=== PATIENT | male | born 1955 | race Caucasian/White ===

== ENCOUNTER 2018-07-14 07:00 | Outpatient (CLI) | payer MEDICARE, SELFPAY ==
[2018-07-14 08:34] LABS: Abs Immature Grans 0.03 k/cumm (0.0-0.09); Absolute Basophil Count 0.07 k/cumm (0.0-0.2); Absolute Eosinophil Count 0.33 k/cumm (0.0-0.7); Absolute Monocyte Count 1.19 k/cumm (0.11-0.7); Basophils % 0.6; Eosinophils % 2.8; HCT 46.9 % (40.0-50.0); HGB 15.7 g/dL (13.5-17.5); Immature Grans % 0.3; Lymphocytes % 16.1; Mean Corp. HGB Concentration 33.5 g/dL (32.0-36.0); Mean Corpuscular Volume 89.5 fL (80-95); Mean Platelet Volume 11.6 fL (8.0-11.0); Monocytes % 10.1; Neutrophils % 70.1; Platelet Count 277 x1000/uL (130-400); RBC 5.24 m/cumm (4.50-6.00); RBC Distribution Width 13.3 % (11.8-14.1); White Blood Cell Count 11.81 k/cumm (4.4-10.8)
[2018-07-14 08:39] LABS: Absolute Neutrophil Count 8.28 k/cumm (1.2-6.7)
[2018-07-14 09:17] LABS: Hemoglobin A1C 7.1 % (4.5-6.2)
== END 2018-07-14 07:20 ==
PROVIDERS: PCP Family Medicine; Visit Provider Family Medicine
DX: E11.9 Type 2 diabetes mellitus without complications (principal); D45 Polycythemia vera
CPT/HCPCS: 36415; 83036; 85025

== ENCOUNTER 2018-10-13 08:17 | Outpatient (CLI) | payer MEDICARE, SELFPAY ==
[2018-10-13 11:16] LABS: HCT 48.5 % (40.0-50.0); HGB 15.9 g/dL (13.5-17.5); Mean Corp. HGB Concentration 32.8 g/dL (32.0-36.0); Mean Corpuscular Hemoglobin 29.3 pg (27.0-33.0); Mean Corpuscular Volume 89.5 fL (80-95); Platelet Count 293 x1000/uL (130-400); RBC 5.42 m/cumm (4.50-6.00); RBC Distribution Width 13.3 % (11.8-14.1); White Blood Cell Count 10.69 k/cumm (4.4-10.8)
[2018-10-13 11:38] LABS: Hemoglobin A1C 7.5 % (4.5-6.2)
[2018-10-13 11:40] LABS: ALT 29 U/L (12-78); AST 23 U/L (15-37); Albumin 4.1 g/dL (3.4-5.0); Alkaline Phosphatase 113 U/L (46-116); BUN 16 mg/dL (7-18); Bilirubin, Total 0.6 mg/dL (0.2-1.0); CREATININE 0.83 mg/dL (0.70-1.30); Calcium 9.4 mg/dL (8.5-10.1); Chloride 101 mmol/L (98-107); Glucose 143 mg/dL (70-100); Potassium 4.2 mmol/L (3.5-5.1); Sodium 140 mmol/L (136-145); Total Protein 8.6 g/dL (6.4-8.2)
== END 2018-10-13 08:37 ==
PROVIDERS: PCP Family Medicine; Visit Provider Family Medicine
DX: E11.9 Type 2 diabetes mellitus without complications (principal); Z79.4 Long term (current) use of insulin; K74.60 Unspecified cirrhosis of liver
CPT/HCPCS: 36415; 80053; 85027; 83036

== ENCOUNTER 2019-01-15 07:58 | Outpatient (CLI) | payer MEDICARE, SELFPAY ==
[2019-01-15 13:00] LABS: Hemoglobin A1C 7.7 % (4.5-6.2)
== END 2019-01-15 08:18 ==
PROVIDERS: PCP Family Medicine; Visit Provider Family Medicine
DX: E11.9 Type 2 diabetes mellitus without complications (principal); Z79.4 Long term (current) use of insulin
CPT/HCPCS: 36415; 83036

== ENCOUNTER 2019-04-15 07:31 | Outpatient (CLI) | payer MEDICARE, SELFPAY ==
[2019-04-15 09:41] LABS: Hemoglobin A1C 7.3 % (4.5-6.2)
== END 2019-04-15 07:51 ==
PROVIDERS: PCP Family Medicine; Visit Provider Family Medicine
DX: E11.9 Type 2 diabetes mellitus without complications (principal); Z79.4 Long term (current) use of insulin
CPT/HCPCS: 36415; 83036

== ENCOUNTER 2019-04-28 00:32 | Outpatient (CLI) | payer MEDICARE, SELFPAY ==
--- NOTE | 2019-04-28 09:49 | DI.RAD_ITS ---
SYMPTOM/DIAGNOSIS: DYSPHAGIA WITH SOLID FOODS R13.10 BARIUM SWALLOW: 04/28 Fluoroscopy Time: 11 sec Preliminary films of the chest and neck show cardiomegaly and question borderline CHF. Barium was ingested and showed grossly normal hypopharyngeal motility. Esophageal motility and mucosal appearance is unremarkable. A 12 mm Barium tablet passed easily through the esophagus in to the stomach. CONCLUSION: Negative barium swallow. Chest film shows findings suggestive of mild CHF.
[2019-04-28] MEDS: Barium Sulfate 700 MG TAB PO (11:03)
[2019-04-28] MEDS: Barium Sulfate 60% W/V 355 ML BTL PO (11:05)
== END 2019-04-28 00:52 ==
PROVIDERS: PCP Family Medicine; Visit Provider Family Medicine
DX: R13.10 Dysphagia, unspecified (principal); I50.9 Heart failure, unspecified
CPT/HCPCS: 74220; J3490

== ENCOUNTER 2019-11-09 16:51 | Inpatient (IN) | payer MEDICARE, SELFPAY ==
[2019-11-09] VITALS (58 sets, daily range): BP systolic 83–178; BP diastolic 39–144; PULSE 65–157; RESP 2–43; TEMP 36.1–37.1; O2SAT 80–95
--- NOTE | 2019-11-09 17:00 | DI.RAD_ITS ---
EXAM: XR PORTABLE CHEST AP INDICATION: sob. COMPARISON: RF barium swallow from 04/28/2019 TECHNIQUE: 2D digital imaging was performed. FINDINGS: The exam is somewhat limited by the patient's body habitus. The lung bases are suboptimally penetra radha. The heart is enlarged, unchanged. There is vascular prominence and question of increased inter stitial markings consistent with mild pulmonary edema. There may also be tiny bilateral pleural effu sions. IMPRESSION: Cardiomegaly and mild CHF. DATA REPOSITORY: RADIATION DOSE DELIVERED:
[2019-11-09] MEDS: Albuterol/Ipratropium 3 ML UPD VIAL UPD ×3 (17:15→21:31)
[2019-11-09] MEDS: methylPREDNISolone SUCC 125 MG VIAL IVP (17:22)
[2019-11-09 17:26] LABS: Abs Immature Grans 0.06 k/cumm (0.0-0.09); Absolute Basophil Count 0.07 k/cumm (0.0-0.2); Absolute Lymphocyte Count 1.47 k/cumm (1.2-3.4); Basophils % 0.4; Eosinophils % 0.9; HCT 52.7 % (40.0-50.0); HGB 17.1 g/dL (13.5-17.5); Immature Grans % 0.3 %; Lymphocytes % 8.1; Mean Corp. HGB Concentration 32.4 g/dL (32.0-36.0); Mean Corpuscular Hemoglobin 28.7 pg (27.0-33.0); Mean Corpuscular Volume 88.4 fL (80-95); Monocytes % 8.7; Neutrophils % 81.6; Platelet Count 310 x1000/uL (130-400); RBC 5.96 m/cumm (4.50-6.00); RBC Distribution Width 14.1 % (11.8-14.1); White Blood Cell Count 18.14 k/cumm (4.4-10.8)
[2019-11-09 17:29] LABS: Absolute Eosinophil Count 0.16 k/cumm (0.0-0.7); Absolute Monocyte Count 1.58 k/cumm (0.11-0.7)
--- NOTE | 2019-11-09 17:29 | DI.VRAD_ITS ---
PROCEDURE INFORMATION: Exam: Portable XR Chest, 1 View Exam date and time: 11/09/2019 5:21 PM Age: 64 years old Clinical indication: Shortness of breath; Patient HX: SOB TECHNIQUE: Imaging protocol: Portable XR of the chest Views: 1 view. COMPARISON: CR CHEST 2 VIEWS PA,LAT 11/04/2013 9:48 AM FINDINGS: Lungs: There is pulmonary vascular congestion. Pleural space: There is blunting of the left costophrenic angle and a small left pleural effusion is suspected. Heart/Mediastinum: There is borderline cardiomegaly. Bones/joints: Unremarkable. IMPRESSION: Borderline cardiomegaly. Suspect small left pleural effusion. Pulmonary vascular congestion. Dictated and Authenticated by: Edmar Carpio MD. Ordering:DAVONTE Mcknight MD
[2019-11-09 17:37] LABS: Diff Comment Diff Reviewed; Polychromasia Present
[2019-11-09 17:45] LABS: ALT 24 U/L (16-63); AST 22 U/L (15-37); Albumin 4.3 g/dL (3.4-5.0); Alkaline Phosphatase 110 U/L (46-116); Anion Gap 10.5 mmol/L (3-11); BUN 15 mg/dL (7-18); Bilirubin, Total 0.6 mg/dL (0.2-1.0); CO2 28.5 mmol/L (21.0-32.0); CREATININE 0.94 mg/dL (0.70-1.30); Calcium 8.8 mg/dL (8.5-10.1); Chloride 101 mmol/L (98-107); Glucose 145 mg/dL (74-106); Potassium 3.8 mmol/L (3.5-5.1); Sodium 140 mmol/L (136-145); Total Protein 8.9 g/dL (6.4-8.2); Troponin I < 0.05 ng/Ml (<0.06)
[2019-11-09 17:55] LABS: NT-proBNP 347 pg/mL (<300)
--- NOTE | 2019-11-09 17:58 | ED.GENADUL_ITS ---
Discharge Plan Disposition Patient Disposition: [facility] INPATIENT Condition: Critical Discharge Details Chief Complaint: SOB Clinical Impression: Acute exacerbation of chronic obstructive pulmonary disease, CHF (congestive heart failure), Atrial fibrillation with rapid ventricular response, Leukocyt osis Primary Care Provider: Darci Yan ED Provider: Juan Luis Armendariz Home Meds and New Rx's Prescriptions: No Action amlodipine [Norvasc] 10 mg tablet 10 mg PO QAM Qty: 90 RF: 4 fluticasone propion-salmeterol [Advair Diskus] 250-50 mcg/dose blister with device 1 inh Inhalation BID Qty: 3 RF: 4 furosemide [Lasix] 80 mg tablet 80 mg PO DAILY Qty: 90 RF: 4 Lantus Solostar U-100 Insulin 100 unit/mL (3 mL) insulin pen 60 unit subcut DAILY Qty: 4 RF: 5 (DME) lancets [ZingTouch UltraSoft Lancets] Misc 1 ea Miscellaneous TID Qty: 200 RF: 4 lisinopril 40 mg tablet 40 mg PO DAILY Qty: 90 RF: 4 lovastatin 40 mg tablet 80 mg PO DAILY Qty: 180 RF: 4 metformin [Glucophage] 1,000 mg tablet 1,000 mg PO BID Qty: 180 RF: 4 metoprolol tartrate 100 mg tablet 100 mg PO BID Qty: 180 RF: 4 (DME) pen needle, diabetic [BD Ultra-Fine Kenisha Pen Needle] 32 gauge x 5/32 needle 1 ea Miscellaneous DAILY Qty: 100 RF: 4 Spiriva with HandiHaler 18 mcg capsule, w/inhalation device 18 mcg Inhalation DAILY Qty: 3 RF: 4 (DME) ZingTouch Ultra Test strip 1 ea Miscellaneous QID Qty: 300 RF: 5 Jardiance 25 mg tablet 25 mg PO DAILY Qty: 90 RF: 4 OXYGEN RF: 0 ONE TOUCH BASIC SYSTEM 1 EACH kit 1 ea Miscellaneous TID Qty: 1 RF: 0 albuterol sulfate 2.5 MG/3 ML solution for nebulization 2.5 mg Inhalation Q6H PRN Qty: 6 RF: 4 nitroglycerin [Nitrostat] 0.4 MG tablet, sublingual 1 tab Sublingual PRN Qty: 25 RF: 4 Xarelto 20 mg tablet 20 mg PO DAILY Qty: 90 RF: 3 ipratropium-albuterol 0.5 mg-3 mg(2.5 mg base)/3 mL solution for nebulization 3 ml Inhalation Q4H PRN Qty: 6 RF: 5 Medical Decision Making 18:05 --patient seen on arrival. Patient in critical condition on arrival. 64-year-old male with multiple medical problem including history of coronary artery disease, atrial fibrillation, chronic CHF, COPD, here with shortness of breath, medication noncompliance. Patient hypoxic and in mild respiratory distress. Concern for COPD exacerbation versus CHF exacerbation. Respiratory therapy was consulted and BiPAP was initiated. Oxygen saturation has improved on BiPAP. Patient was given 2 DuoNeb treatments. Screening ECG on arrival was reviewed and interpreted by me: Atrial fibrillation with rapid ventricular response of 123 bpm, no STEMI, significant artifact, nondiagnostic. Chest x-ray was reviewed and interpreted by radiology: Borderline cardiomegaly, suspect small left pleural effusion, pulmonary vascular congestion. Patient has been taking his Lasix 80 mg daily and took this this morning. I will give an additional Lasix 40 mg IV. -- Patient reassessed and oxygen saturation now 93% on BiPAP at 50% oxygen. His heart rate remains elevated in the 140s to 160s. I am concerned about potential atrial fibrillation contributing to CHF. I will initiate treatment with diltiazem IV push. Labs reviewed. Leukocytosis is noted. Patient is afebrile. He has had increased cough recently. I will cover with cefepime IV. Will send blood cultures and lactate. Troponin negative. BNP is only slightly elevated at 347. --Patient reassessed multiple times. Heart rate did improve after diltiazem push. Diltiazem infusion was initiated and titrated to effect. Heart rate did improve to 110s. Patient continues to saturate well and in no respiratory distress while on BiPAP. I called and spoke with Dr. Sesay, on-call hospitalist, who evaluated the patient at bedside and will admit the patient to the ICU. Care transition to Dr. Sesay at time of admission. HPI General Mode of arrival: ambulatory . Date/Time Provider Initiated Documentation: 11/09/19 16:58 . Limitations to Documentation: no limitations . Information obtained by: patient and family . HPI Narrative: 64-year-old male with multiple medical problems including history of coronary artery disease, atrial fibrillation, chronic CHF, COPD, diabetes, hepatitis C, presents today with chief complaint of shortness of breath. He unfortunately ran out of some of his COPD meds a few days ago. He used an albuterol neb earlier today which did not seem to help his symptoms. He does have associated pleuritic chest discomfort when he is coughing. Cough increased from baseline. Apparently patient was noted to be hypoxic 67% on 3 L nasal cannula oxygen at home today. No leg swelling or calf pain. Related Data Home Medications Medication Instructions Recorded Confirmed Oxygen 12/19/12 08/11/19 albuterol sulfate 2.5 mg INHALATION Q6H PRN #6 box 05/14/17 11/09/19 nitroglycerin [Nitrostat] 1 tab SUBLINGUAL PRN #25 tab.sl 05/14/17 11/09/19 blood sugar diagnostic #300 strip 07/25/18 11/09/19 empagliflozin 25 mg tablet 25 mg PO DAILY #90 tab 02/25/19 11/09/19 rivaroxaban 20 mg tablet 20 mg PO DAILY #90 tab-cap 06/10/19 11/09/19 amlodipine 10 mg tablet 10 mg PO QAM #90 tab 08/11/19 11/09/19 fluticasone 250 mcg-salmeterol 50 1 inh INHALATION BID #3 each 08/11/19 11/09/19 mcg/dose blistr powdr for inhalation furosemide 80 mg tablet 80 mg PO DAILY #90 tab 08/11/19 11/09/19 insulin glargine 100 unit/mL (3 60 unit SUBCUT DAILY #4 box 08/11/19 11/09/19 mL) subcutaneous pen lancets #200 each 08/11/19 11/09/19 lisinopril 40 mg tablet 40 mg PO DAILY #90 tab 08/11/19 11/09/19 lovastatin 40 mg tablet 80 mg PO DAILY #180 tab-cap 08/11/19 11/09/19 metformin 1,000 mg tablet 1,000 mg PO BID #180 tab 08/11/19 11/09/19 metoprolol tartrate 100 mg tablet 100 mg PO BID #180 tab-cap 08/11/19 11/09/19 pen needle, diabetic 32 gauge x #100 ea 08/11/19 11/09/19 tiotropium bromide 18 mcg capsule 18 mcg INHALATION DAILY #3 tab-cap 08/11/19 11/09/19 with inhalation device ipratropium 0.5 mg-albuterol 3 mg 3 ml INHALATION Q4H PRN #6 box 11/09/19 11/09/19 (2.5 mg base)/3 mL nebulization soln Previous Rx's Medication Instructions Recorded blood sugar diagnostic #300 strip 07/25/18 empagliflozin 25 mg tablet 25 mg PO DAILY #90 tab 02/25/19 rivaroxaban 20 mg tablet 20 mg PO DAILY #90 tab-cap 06/10/19 amlodipine 10 mg tablet 10 mg PO QAM #90 tab 08/11/19 fluticasone 250 mcg-salmeterol 50 1 inh INHALATION BID #3 each 08/11/19 mcg/dose blistr powdr for inhalation furosemide 80 mg tablet 80 mg PO DAILY #90 tab 08/11/19 insulin glargine 100 unit/mL (3 60 unit SUBCUT DAILY #4 box 08/11/19 mL) subcutaneous pen lancets #200 each 08/11/19 lisinopril 40 mg tablet 40 mg PO DAILY #90 tab 08/11/19 lovastatin 40 mg tablet 80 mg PO DAILY #180 tab-cap 08/11/19 metformin 1,000 mg tablet 1,000 mg PO BID #180 tab 08/11/19 metoprolol tartrate 100 mg tablet 100 mg PO BID #180 tab-cap 08/11/19 pen needle, diabetic 32 gauge x #100 ea 08/11/19 tiotropium bromide 18 mcg capsule 18 mcg INHALATION DAILY #3 tab-cap 08/11/19 with inhalation device ipratropium 0.5 mg-albuterol 3 mg 3 ml INHALATION Q4H PRN #6 box 11/09/19 (2.5 mg base)/3 mL nebulization soln Allergies Allergy/AdvReac Type Severity Reaction Status Date / Time exenatide [From [employer]] AdvReac Unknown Verified 11/09/19 17:04 General Stated Complaint: SOB VINICIUS: 2 Review of Systems All systems reviewed & are unremarkable except as noted in HPI and below Constitutional Constitutional: Reports fatigue and Denies fever(s) Cardiovascular Cardiovascular: Reports as per HPI and Reports dyspnea Respiratory Respiratory: Reports cough and Reports dyspnea Endocrine Endocrine: Reports fatigue PFSH Surgical History Stent placement (~2004) LCX Family History Mother Essential hypertension Grandmother Neoplasm Father Diabetes Heart disease Social History Smoking/Tobacco Use Status: Former Tobacco Use Alcohol Intake: current Alcohol Intake frequency: a few times a month Drug use: Current Sobriety Substance use type: does not use Household members: none Pets and animals: Yes Pets and animals: cat(s) Reba/Protestant: N/A Special reba needs: No Exam Const General: cooperative HENMT Mouth: moist mucous membranes Eyes Conjunctivae: normal conjunctivae Sclera: normal sclerae EOM: EOM intact bilaterally Neck Neck: trachea midline and supple Resp Auscultation: no rhonchi Cardio Jugular venous pressure: no JVD Rhythm: regular rhythm GI Palpation: soft, not firm, no guarding, no masses, not rigid and nontender Skin General skin exam: no rashes or lesions noted Neuro General: alert, awake, oriented x3 and tone normal Extrem General: no edema Psych Appearance: grossly normal Mental Status: mental status grossly normal Speech and Movement: speech and movement normal Course Vital Signs Vital signs: Vital Signs Temperature 37.1 C 11/09/19 16:57 Pulse 130 H 11/09/19 16:57 Respiratory Rate 26 H 11/09/19 16:57 Blood Pressure 175/111 H 11/09/19 16:57 Pulse Oximetry 80 L 11/09/19 16:57 Temperature 37.1 C 11/09/19 16:57 Temperature Source Temporal Artery Scan 11/09/19 16:57 Pulse 137 H 11/09/19 17:40 Respiratory Rate 20 11/09/19 17:40 Respiratory Effort Accessory Muscle Use 11/09/19 17:23 Respiratory Depth Shallow 11/09/19 17:23 Respiratory Pattern Tachypnea 11/09/19 17:23 Blood Pressure 175/111 H 11/09/19 16:57 Blood Pressure Position Sitting 11/09/19 16:57 Pulse Oximetry 93 L 11/09/19 17:40 Oxygen Delivery Method Bi-pap 11/09/19 17:40 Oxygen Flow Rate 2.5 11/09/19 16:57 Fraction of Inspired Oxygen (FIO2) 50 11/09/19 17:40 Pain Level 0 11/09/19 16:57 Lab/Test Results Lab/Test Results: Laboratory Tests Range/Units 11/09/19 11/09/19 11/09/19 17:00 17:00 17:00 WBC (4.4-10.8) k/cumm 18.14 H RBC (4.50-6.00) m/cumm 5.96 Hgb (13.5-17.5) g/dL 17.1 Hct (40.0-50.0) % 52.7 H MCV (80-95) fL 88.4 MCH (27.0-33.0) pg 28.7 MCHC (32.0-36.0) g/dL 32.4 RDW (11.8-14.1) % 14.1 Plt Count (130-400) x1000/uL 310 MPV (8.0-11.0) fL 11.0 Immature Gran % % 0.3 Neutrophils % 81.6 Lymphocytes % 8.1 Monocytes % 8.7 Eosinophils % 0.9 Basophils % 0.4 Absolute Neutrophils (1.2-6.7) k/cumm 14.80 H Absolute Lymphocytes (1.2-3.4) k/cumm 1.47 Absolute Monocytes (0.11-0.7) k/cumm 1.58 H Absolute Eosinophils (0.0-0.7) k/cumm 0.16 Absolute Basophils (0.0-0.2) k/cumm 0.07 Differential Comment Diff reviewed RBC Morphology See below Polychromasia Present Sodium (136-145) mmol/L 140 Potassium (3.5-5.1) mmol/L 3.8 Chloride (98-107) mmol/L 101 Carbon Dioxide (21.0-32.0) mmol/L 28.5 Anion Gap (3-11) mmol/L 10.5 BUN (7-18) mg/dL 15 Creatinine (0.70-1.30) mg/dL 0.94 Estimated GFR/1.73 m2 (mL/min/1.73m2) >= 60.00 Glucose (74-106) mg/dL 145 H Calcium (8.5-10.1) mg/dL 8.8 Total Bilirubin (0.2-1.0) mg/dL 0.6 AST (15-37) U/L 22 ALT (16-63) U/L 24 Alkaline Phosphatase (46-116) U/L 110 Troponin I (<0.06) ng/Ml < 0.05 NT-Pro-B Natriuret Pep (<300) pg/mL 347 H Total Protein (6.4-8.2) g/dL 8.9 H Albumin (3.4-5.0) g/dL 4.3 Critical Care Time Critical Care Time Critical Care Time: Yes Total Critical Care Time: 45 Attestation: I spent greater than 65 minutes providing critical care to address this patient's immediate life threats.
[2019-11-09] MEDS: Furosemide 40 MG/4 ML VIAL IVP (18:04)
[2019-11-09] MEDS: dilTIAZem 25 MG/5 ML VIAL 20 MG IVP (18:10)
[2019-11-09 18:22] LABS: INR 1.1 (0.9-1.1); Prothrombin Time 11.3 sec (9.3-11.0)
[2019-11-09] MEDS: dilTIAZem 125 MG in Normal Saline 100 ML IV (18:31)
[2019-11-09] MEDS: CEFEPIME 2 GM in Normal Saline 100 ML IVPB (18:50)
--- NOTE | 2019-11-09 19:38 | HPE_ITS ---
Date of service: 11/09/19 Time of Service: 19:38 Assessment and Plan Assessment and plan (1) SOB (shortness of breath): Status: Acute Assessment and plan: SOB. I think this is largely COPD, based on findings and rapid response to treatment. May be an element of CHF. Unclear if AF/RVR contributing to latter perhaps, though suffice to say no evidence of ischemia. Unclear if infection present, certainly not apparent by CXR, though leukocytosis is certainly noted. Altogether I think we are on the right track. Will continue steroids and updrafts, can probably change to oral antibiotics. I don't see need ast present for more aggressive attempts to diurese, will maintain on usual home regimen. Regarding AF will titrate up Cardizem for pulse <100. Reviewed advance directives, requests DNR/DNI. History of Present Illness History of Present Illness Chief Complaint: SOB Narrative: 64 male with COPD, CAD, CHF, AF -- comes in with one week of increasing SOB and few days of dry cough. Note that he has been low on his inhalers and has been using sparingly, and they are also out of date. In ER findings of note for wheezing, AF with RVR, leukocytosis of 18, CXR showing mild pulmonary congestion. Patient given Duonebs, solumedrol, started on Cardizem qtt and Lasiz 40 IVP. States he feels much better (note reports only modest urine output to this point). patient also given dose of Cefipime. Troponon negative and EKG w/o ischemic changes. Review of Systems All systems reviewed & are unremarkable except as noted in HPI and below PFSH Surgical History Stent placement (~2004) LCX Family History Mother Essential hypertension Grandmother Neoplasm Father Diabetes Heart disease Social History Smoking/Tobacco Use Status: Former Tobacco Use Alcohol Intake: current Alcohol Intake frequency: a few times a month Drug use: Current Sobriety Substance use type: does not use Household members: none Pets and animals: Yes Pets and animals: cat(s) Reba/Yazdanism: N/A Special reba needs: No Meds Home Medications and Allergies Home Medications Medication Instructions Recorded Confirmed Type Oxygen 12/19/12 08/11/19 History One Touch Basic System 1 ea MISCELLANEOUS TID #1 kit 03/26/13 11/09/19 Clinic albuterol sulfate 2.5 mg INHALATION Q6H PRN #6 box 05/14/17 11/09/19 History nitroglycerin [Nitrostat] 1 tab SUBLINGUAL PRN #25 tab.sl 05/14/17 11/09/19 History blood sugar diagnostic #300 strip 07/25/18 11/09/19 Rx empagliflozin 25 mg tablet 25 mg PO DAILY #90 tab 02/25/19 11/09/19 Rx rivaroxaban 20 mg tablet 20 mg PO DAILY #90 tab-cap 06/10/19 11/09/19 Rx amlodipine 10 mg tablet 10 mg PO QAM #90 tab 08/11/19 11/09/19 Rx fluticasone 250 mcg-salmeterol 50 1 inh INHALATION BID #3 each 08/11/19 11/09/19 Rx mcg/dose blistr powdr for inhalation furosemide 80 mg tablet 80 mg PO DAILY #90 tab 08/11/19 11/09/19 Rx insulin glargine 100 unit/mL (3 60 unit SUBCUT DAILY #4 box 08/11/19 11/09/19 Rx mL) subcutaneous pen lancets #200 each 08/11/19 11/09/19 Rx lisinopril 40 mg tablet 40 mg PO DAILY #90 tab 08/11/19 11/09/19 Rx lovastatin 40 mg tablet 80 mg PO DAILY #180 tab-cap 08/11/19 11/09/19 Rx metformin 1,000 mg tablet 1,000 mg PO BID #180 tab 08/11/19 11/09/19 Rx metoprolol tartrate 100 mg tablet 100 mg PO BID #180 tab-cap 08/11/19 11/09/19 Rx pen needle, diabetic 32 gauge x #100 ea 08/11/19 11/09/19 Rx tiotropium bromide 18 mcg capsule 18 mcg INHALATION DAILY #3 tab-cap 08/11/19 11/09/19 Rx with inhalation device ipratropium 0.5 mg-albuterol 3 mg 3 ml INHALATION Q4H PRN #6 box 11/09/19 11/09/19 Rx (2.5 mg base)/3 mL nebulization soln Allergies Allergy/AdvReac Type Severity Reaction Status Date / Time exenatide [From [employer]] AdvReac Unknown Verified 11/09/19 17:04 Exam Narrative Exam Narrative: 127/100, 120, 37, 23. HEENT atraumatic, neck supple; lungs diffuse wheeze; heart tachy, irr/irr; abdomen soft and NT; extremities w/o edema; neuro non-focal Results Labs Result diagrams: 11/09/19 17:00 11/09/19 17:00 Labs: Laboratory Results - last 24 hr 11/09/19 11/09/19 11/09/19 17:00 17:00 17:00 WBC 18.14 H RBC 5.96 Hgb 17.1 Hct 52.7 H MCV 88.4 MCH 28.7 MCHC 32.4 RDW 14.1 Plt Count 310 MPV 11.0 Immature Gran % 0.3 Neutrophils % 81.6 Lymphocytes % 8.1 Monocytes % 8.7 Eosinophils % 0.9 Basophils % 0.4 Absolute Neutrophils 14.80 H Absolute Lymphocytes 1.47 Absolute Monocytes 1.58 H Absolute Eosinophils 0.16 Absolute Basophils 0.07 Differential Comment Diff reviewed RBC Morphology See below Polychromasia Present PT INR Sodium 140 Potassium 3.8 Chloride 101 Carbon Dioxide 28.5 Anion Gap 10.5 BUN 15 Creatinine 0.94 Estimated GFR/1.73 m2 >= 60.00 Glucose 145 H Lactate Calcium 8.8 Total Bilirubin 0.6 AST 22 ALT 24 Alkaline Phosphatase 110 Troponin I < 0.05 NT-Pro-B Natriuret Pep 347 H Total Protein 8.9 H Albumin 4.3 11/09/19 11/09/19 17:00 18:35 WBC RBC Hgb Hct MCV MCH MCHC RDW Plt Count MPV Immature Gran % Neutrophils % Lymphocytes % Monocytes % Eosinophils % Basophils % Absolute Neutrophils Absolute Lymphocytes Absolute Monocytes Absolute Eosinophils Absolute Basophils Differential Comment RBC Morphology Polychromasia PT 11.3 H INR 1.1 Sodium Potassium Chloride Carbon Dioxide Anion Gap BUN Creatinine Estimated GFR/1.73 m2 Glucose Lactate 2.0 H Calcium Total Bilirubin AST ALT Alkaline Phosphatase Troponin I NT-Pro-B Natriuret Pep Total Protein Albumin Last Vital Signs Temp 37 C 11/09/19 19:07 Pulse 120 H 11/09/19 19:07 Resp 23 11/09/19 19:05 BP 127/100 H 11/09/19 19:05 Pulse Ox 92 L 11/09/19 19:05
[2019-11-09 20:48] LABS: Troponin I < 0.05 ng/Ml (<0.06)
[2019-11-09] MEDS: Normal Saline Flush 10 ML SYR IVP ×2 (21:30→21:54)
[2019-11-09] MEDS: methylPREDNISolone SUCC 40 MG VIAL IVP (21:30)
[2019-11-09] MEDS: Cefuroxime 500 MG TAB PO (21:30)
[2019-11-10] VITALS (64 sets, daily range): BP systolic 85–155; BP diastolic 49–118; PULSE 52–119; RESP 2–32; TEMP 36.1–37; O2SAT 82–97
[2019-11-10] MEDS: Albuterol 2.5 MG/3 ML INH SOLN VIAL UPD (00:19)
[2019-11-10] MEDS: Albuterol/Ipratropium 3 ML UPD VIAL UPD ×5 (02:19→23:04)
[2019-11-10] MEDS: methylPREDNISolone SUCC 40 MG VIAL IVP ×3 (05:18→23:04)
[2019-11-10] MEDS: Normal Saline Flush 10 ML SYR IVP ×6 (05:18→23:06)
[2019-11-10] MEDS: dilTIAZem 125 MG in Normal Saline 100 ML 8 MG IV (06:11)
[2019-11-10 06:58] LABS: HCT 48.4 % (40.0-50.0); HGB 15.7 g/dL (13.5-17.5); Mean Corp. HGB Concentration 32.4 g/dL (32.0-36.0); Mean Corpuscular Hemoglobin 28.7 pg (27.0-33.0); Mean Corpuscular Volume 88.5 fL (80-95); Mean Platelet Volume 11.8 fL (8.0-11.0); Platelet Count 259 x1000/uL (130-400); RBC 5.47 m/cumm (4.50-6.00); White Blood Cell Count 19.12 k/cumm (4.4-10.8)
[2019-11-10 07:06] LABS: Magnesium 1.9 mg/dL (1.8-2.4)
--- NOTE | 2019-11-10 07:54 | INITIAL_ITS ---
- If Service Date Differs Date of service: 11/10/19 Time of Service: 07:54 Care Management Initial Assess REASON FOR HOSPITALIZATION:: CHF, COPD, AFIB PAST MEDICAL HISTORY/PAST SURGICAL HISTORY:: CHF, COPD, A. fib, dysphagia, diabetes, substance abuse, hepatitis C successfully treated 2017, polycythemia vera, obesity, cataracts, hyperlipidemia, hypertension, coronary artery disease, chronic anticoagulant. 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 He has 5 children to that live locally. Maximiliano is on chronic oxygen through [employer], he has a CPAP, and a home nebulizer. Maximiliano is independent with ADLs including transportation. CURRENT FUNCTIONAL STATUS:: Maximiliano is sitting up on the side of the bed, he is engaged during assessment with care management. Maximiliano describes the events that led to admission including a week of congestion and not feeling well. He states he ran out of his updraft treatments and was unable to get the prescription filled for duo nebs related to insurance. Maximiliano states he called his daughter and requested she bring him to the hospital when he was no longer able to manage his symptoms at home. ADVANCE DIRECTIVES:: Agent Parrish Campa Trevor (sons) Has patient been provided with information about the portal?: Yes Did the patient sign up for the portal?: No CODE STATUS:: DNR/DNI INSURANCE COVERAGE / FINANCIAL ISSUES:: Medicare CURRENT HOME/COMMUNITY SERVICES/EQUIPMENT:: CPAP, Oxygen through [employer], Nebulizer through [employer] PRIMARY CARE PHYSICIAN:: POTENTIAL DISCHARGE NEEDS:: Follow up appt with primary care provider, scheduled prior to discharge, anticipate referral to home health services for nursing PATIENT/FAMILY EDUCATION NEEDS:: Discharge education, limitations, follow-up plan of care, asked me 3 and self-management. ANTICIPATED BARRIERS TO DISCHARGE:: Maximiliano he needs access to nebulizer treatments for his updraft, CM is reviewed this with RT, and will follow up with chronic healthcare representative at primary care practice. TRANSPORTATION:: Via private car with family at time of discharge PLAN:: Maximiliano is currently in the ICU, his on a Diltiazem drip, receiving IV Lasix, and IV steroids. Anticipate he will be discharged home when medically ready per provider. Additional services to be determined, anticipate home health referral. CM to continue to provide support and assess for discharge needs and services.
--- NOTE | 2019-11-10 08:09 | W.PM.PROGNOT ---
Date of Service Date of service: 11/10/19 Time of Service: 11:31 Assessment and Plan Assessment and plan (1) Acute on chronic respiratory failure with hypoxia: Status: Acute Assessment and plan: Multifactorial, due to acute exacerbation of COPD, acute bacterial bronchitis, acute on chronic systolic CHF, pulmonary hypertension, JOSE, ?OHS. Improved, off of BiPAP and near baseline oxygen requirement. Continue treatment of underlying COPD exacerbation/bronchitis with IV abx (started on doxycycline, ceftriaxone), as well as systemic steroids, nebs. Continue diuresis - may have to switch to IV. Ok to transfer out of ICU. (2) Acute exacerbation of chronic obstructive pulmonary disease: Status: Acute Assessment and plan: As above (3) Acute bacterial bronchitis: Status: Acute Assessment and plan: As above. Procalcitonin elevated. Obtain sputum cx. On empiric doxy/ceftriaxone. (4) Acute on chronic systolic CHF (congestive heart failure): Status: Resolved Assessment and plan: Needs updated echo - last EF circa 35-40%, but episodes of Vtach may have to do with EF lower than that at this point. No echo available at [facility] until 11/13/2019 - may have to have this as outpatient. Continue diuresis; continue home metoprolol; transitioned to PO cardizem, but if EF very low, CCB may be contraindicated. (5) Atrial fibrillation with rapid ventricular response: Status: Acute (6) Nonsustained paroxysmal ventricular tachycardia: Status: Acute Assessment and plan: Hard to interpret in setting of acute pulmonary illness, but would benefit from outpatient cardiac monitoring, repeat echo and stress test. (7) Pulmonary hypertension: Status: Chronic Assessment and plan: Continue BiPAP, manage volume status. Would benefit from a repeat echocardiogram. (8) Diabetes mellitus: Status: Chronic Assessment and plan: Continue basal bolus insuslin. Qualifiers: Diabetes mellitus type: type 2 Diabetes mellitus continuous churn buttermaker insulin use: without continuous churn buttermaker use Diabetes mellitus complication status: without complication Qualified Code(s): E11.9 - Type 2 diabetes mellitus without complications (9) Lactic acidosis due to LAD deficiency: Status: Acute Assessment and plan: The likely reason for elevated lactate. Also, on metformin. I do not think that the rise in the lactate corresponds to his actual clinical condition. Will stop trending. (10) JOSE treated with BiPAP: Status: Acute Assessment and plan: Continue BiPAP at night (11) DVT prophylaxis: Status: Acute Assessment and plan: On therapeutic xarelto - continue (12) Discharge planning issues: Status: Acute Assessment and plan: DNR/DNI. If rates remain controlled can transfer out of ICU. Subjective Subjective Interval history since last seen: Feels almost 100% better. States his chest tightness is almost completely resolved, wheezing is less, cough is less productive (still bringing up farr-brownish sputum). Denies dizziness, nausea, vomiting. No chest pain. SBP 100-120's, HR 86-93 this am, Off cardizem gtt now and transitioned to short acting cardizem - Still in Afib in the 70's. 6 am - 15 beat Vtach while awake, asymptomatic. 5 beats circa 8:15 am. Otherwise, PVCs this morning. They have slowed down as cardizem gtt was titrated down. On 3L - 90-95%. Spent most of the night on Bipap, taken off around 4 am. Titrating down. At home on 2.5 L. UOP 2550 (drank 2640 cc). Didn't sleep last night. Exam Narrative Exam Narrative: General: Obese middle-aged male, sitting at the side of the bed, able to speak in long sentences without appearing short of breath, coughs occasional - sounds wet. A&Ox3 HEENT: EOMI, MMM Heart: Irregularly irregular rhythm, no m/r/g Lungs:wheezing on auscultation B in addition to crackles at B bases Abdomen: soft, nontender, nondistended Extremities: trace edema BLE's Objective Objective Clinical Data: Abnormal lab results 11/09/19 11/09/19 11/09/19 Range/Units 17:00 17:00 17:00 WBC 18.14 H (4.4-10.8) k/cumm Hct 52.7 H (40.0-50.0) % MPV (8.0-11.0) fL Absolute Neutrophils 14.80 H (1.2-6.7) k/cumm Absolute Monocytes 1.58 H (0.11-0.7) k/cumm PT (9.3-11.0) sec Glucose 145 H (74-106) mg/dL Lactate (0.6-1.4) mmol/L NT-Pro-B Natriuret Pep 347 H (<300) pg/mL Total Protein 8.9 H (6.4-8.2) g/dL 11/09/19 11/09/19 11/10/19 Range/Units 17:00 18:35 06:00 WBC 19.12 H (4.4-10.8) k/cumm Hct (40.0-50.0) % MPV 11.8 H (8.0-11.0) fL Absolute Neutrophils (1.2-6.7) k/cumm Absolute Monocytes (0.11-0.7) k/cumm PT 11.3 H (9.3-11.0) sec Glucose (74-106) mg/dL Lactate 2.0 H (0.6-1.4) mmol/L NT-Pro-B Natriuret Pep (<300) pg/mL Total Protein (6.4-8.2) g/dL Vital Signs Temperature 36.1 C L 11/10/19 04:50 Temperature Source Tympanic 11/09/19 20:31 Pulse 97 H 11/10/19 08:00 Pulse 100 H 11/10/19 06:31 Respiratory Rate 22 11/10/19 08:00 Respiratory Effort 11/10/19 04:50 Respiratory Depth Normal 11/10/19 04:50 Respiratory Pattern Normal 11/10/19 04:50 Blood Pressure 137/118 H 11/10/19 06:31 Blood Pressure Mean 122 11/10/19 06:31 Blood Pressure Position Sitting 11/09/19 16:57 Pulse Oximetry 93 L 11/10/19 08:07 Oxygen Delivery Method Nasal Cannula 11/10/19 08:07 Oxygen Flow Rate 2.5 11/10/19 08:07 Fraction of Inspired Oxygen (FIO2) 50 11/09/19 20:31 Pain Level 0 11/10/19 04:50 Intake & Output 11/09/19 11/09/19 11/10/19 11:59 23:59 11:59 Intake Total 1443.041 / 4248.802 0457.800 / 1269.800 Output Total 850 / 850 1400 / 1400 Balance 593.041 / 593.041 -130.200 / -130.200 Weight 104.2 kg 102.6 kg Intake: IV 43.041 / 43.041 69.800 / 69.800 Oral 1400 / 1400 1200 / 1200 Output: Urine 850 / 850 1400 / 1400 Other: Urine Color Yellow Yellow Urine Appearance Clear Clear Urine Odor None Comment voids to urinal at bedside. voids to urinal at bedside. Voiding Methods Urinal Laboratory Results WBC 19.12 k/cumm (4.4-10.8) H 11/10/19 06:00 RBC 5.47 m/cumm (4.50-6.00) 11/10/19 06:00 Hgb 15.7 g/dL (13.5-17.5) 11/10/19 06:00 Hct 48.4 % (40.0-50.0) 11/10/19 06:00 MCV 88.5 fL (80-95) 11/10/19 06:00 MCH 28.7 pg (27.0-33.0) 11/10/19 06:00 MCHC 32.4 g/dL (32.0-36.0) 11/10/19 06:00 RDW 14.0 % (11.8-14.1) 11/10/19 06:00 Plt Count 259 x1000/uL (130-400) 11/10/19 06:00 MPV 11.8 fL (8.0-11.0) H 11/10/19 06:00 Immature Gran % 0.3 % 11/09/19 17:00 Neutrophils % 81.6 11/09/19 17:00 Lymphocytes % 8.1 11/09/19 17:00 Monocytes % 8.7 11/09/19 17:00 Eosinophils % 0.9 11/09/19 17:00 Basophils % 0.4 11/09/19 17:00 Absolute Neutrophils 14.80 k/cumm (1.2-6.7) H 11/09/19 17:00 Absolute Lymphocytes 1.47 k/cumm (1.2-3.4) 11/09/19 17:00 Absolute Monocytes 1.58 k/cumm (0.11-0.7) H 11/09/19 17:00 Absolute Eosinophils 0.16 k/cumm (0.0-0.7) 11/09/19 17:00 Absolute Basophils 0.07 k/cumm (0.0-0.2) 11/09/19 17:00 Differential Comment Diff reviewed 11/09/19 17:00 RBC Morphology See below 11/09/19 17:00 Polychromasia Present 11/09/19 17:00 PT 11.3 sec (9.3-11.0) H 11/09/19 17:00 INR 1.1 (0.9-1.1) 11/09/19 17:00 Sodium 140 mmol/L (136-145) 11/09/19 17:00 Potassium 3.8 mmol/L (3.5-5.1) 11/09/19 17:00 Chloride 101 mmol/L (98-107) 11/09/19 17:00 Carbon Dioxide 28.5 mmol/L (21.0-32.0) 11/09/19 17:00 Anion Gap 10.5 mmol/L (3-11) 11/09/19 17:00 BUN 15 mg/dL (7-18) 11/09/19 17:00 Creatinine 0.94 mg/dL (0.70-1.30) 11/09/19 17:00 Estimated GFR/1.73 m2 >= 60.00 (mL/min/1.73m2) 11/09/19 17:00 Glucose 145 mg/dL (74-106) H 11/09/19 17:00 Lactate 2.0 mmol/L (0.6-1.4) H 11/09/19 18:35 Calcium 8.8 mg/dL (8.5-10.1) 11/09/19 17:00 Magnesium 1.9 mg/dL (1.8-2.4) 11/10/19 06:00 Total Bilirubin 0.6 mg/dL (0.2-1.0) 11/09/19 17:00 AST 22 U/L (15-37) 11/09/19 17:00 ALT 24 U/L (16-63) 11/09/19 17:00 Alkaline Phosphatase 110 U/L (46-116) 11/09/19 17:00 Troponin I < 0.05 ng/Ml (<0.06) 11/09/19 20:20 NT-Pro-B Natriuret Pep 347 pg/mL (<300) H 11/09/19 17:00 Total Protein 8.9 g/dL (6.4-8.2) H 11/09/19 17:00 Albumin 4.3 g/dL (3.4-5.0) 11/09/19 17:00
[2019-11-10 08:43] LABS: Lactate 2.5 mmol/L (0.6-1.4)
[2019-11-10] MEDS: Pantoprazole 40 MG VIAL IVP (08:45)
[2019-11-10] MEDS: dilTIAZem 60 MG TAB PO ×3 (08:47→23:04)
[2019-11-10] MEDS: Cefuroxime 500 MG TAB PO (08:48)
[2019-11-10] MEDS: Metoprolol 50 MG TAB 100 MG PO ×2 (08:48→19:20)
[2019-11-10] MEDS: Rivaroxaban 10 MG TABLET 20 MG PO (08:48)
[2019-11-10] MEDS: Insulin Aspart 300 UNITS/3 ML PEN SC ×4 (08:56→23:05)
[2019-11-10 08:58] LABS: Anion Gap 17.6 mmol/L (3-11); BUN 26 mg/dL (7-18); CO2 21.4 mmol/L (21.0-32.0); CREATININE 1.21 mg/dL (0.70-1.30); Calcium 8.5 mg/dL (8.5-10.1); Chloride 94 mmol/L (98-107); Glucose 262 mg/dL (74-106); Magnesium 1.9 mg/dL (1.8-2.4); Potassium 3.6 mmol/L (3.5-5.1); Sodium 133 mmol/L (136-145); Troponin I < 0.05 ng/Ml (<0.06)
[2019-11-10] MEDS: Insulin Glargine 300 UNITS/3 ML PEN 30 UNITS SC (08:58)
[2019-11-10] MEDS: Furosemide 80 MG TAB PO (09:12)
[2019-11-10 09:51] LABS: Procalcitonin 0.4 ng/mL
--- NOTE | 2019-11-10 10:14 | PHA.ADMREV ---
Pharmacy Clinical Review - Admission Clinical Review (Last Reviewed 11/09/19 @ 19:44 by Declan Sesay MD) Acute exacerbation of chronic obstructive pulmonary disease (Acute) Atrial fibrillation with rapid ventricular response (Acute) Leukocytosis (Acute) SOB (shortness of breath) (Acute) exenatide [From [place]] Adverse Reaction (Unknown, Verified 11/09/19 17:04) Height 5 ft 8 in Weight 102.6 kg - Renal Dosing Renal Dosing: BUN 26 mg/dL (7-18) H D 11/10/19 08:25 Creatinine 1.21 mg/dL (0.70-1.30) 11/10/19 08:25 Medications needing adjustments: Reviewed (Est CrCl~ 58 mL/min) - Anticoagulation Anticoagulation: Hgb 15.7 g/dL (13.5-17.5) 11/10/19 06:00 Hct 48.4 % (40.0-50.0) 11/10/19 06:00 Plt Count 259 x1000/uL (130-400) 11/10/19 06:00 INR 1.1 (0.9-1.1) 11/09/19 17:00 Creatinine 1.21 mg/dL (0.70-1.30) 11/10/19 08:25 DVT Prohphylaxis: Reviewed (Xarelto home dose) Medications: Rivarixaban Medications: Rivarixaban - Opiate Usage Evaluate Pain Scale/Pains Meds: N/A Scheduled Bowel Reg ordered if on Opiates?: No - Relevant Labs Sodium 133 mmol/L (136-145) L 11/10/19 08:25 Potassium 3.6 mmol/L (3.5-5.1) 11/10/19 08:25 Chloride 94 mmol/L (98-107) L 11/10/19 08:25 Magnesium 1.9 mg/dL (1.8-2.4) 11/10/19 08:25 Electrolytes, C-Reactive P, ESR: Reviewed (labs WNL) - Antimicrobial Stewardship Antibiotic appropriateness: Reviewed ( chnaged Ceftin to Ceftriaxone & Doxycycline IV) Surgical Abx d/c within 24 hr: N/A De-escalation: N/A Culture review/Resistance: Reviewed (BLOOD-PENDING) IV to PO Switch: N/A C. Diff: No - DM Control DM Control: Glucose 262 mg/dL (74-106) H D 11/10/19 08:25 Finger Stick Blood Glucose 273 Finger Stick Blood Glucose 273 Insulin Dosing: Reviewed (ASPART & GLARGINE on IV STEROIDS) - Heart Failure/MN Heart Failure/MN: Troponin I < 0.05 ng/Ml (<0.06) 11/10/19 08:25 NT-Pro-B Natriuret Pep 347 pg/mL (<300) H 11/09/19 17:00 EF%, CL's, B-Blockers, Diuretics: Reviewed (On PO LASIX 80mg DAILY) - BP Control BP Control: Blood Pressure 137/118 Blood Pressure 145/78 Blood Pressure 150/69 Blood Pressure 151/63 Blood Pressure 85/49 Blood Pressure 100/58 Blood Pressure 102/62 Blood Pressure 128/59 Blood Pressure 136/98 Blood Pressure 116/72 Blood Pressure 112/66 Blood Pressure 123/67 Blood Pressure 127/60 Blood Pressure 136/73 Blood Pressure 102/58 Blood Pressure 128/73 Blood Pressure 106/71 Blood Pressure 85/67 Blood Pressure 131/52 Blood Pressure 128/65 If elevated: Reviewed (dILTIAZEM 60MG po TID (tapering drip), Lopressor) - QTc Review If Elevated: Reviewed (QTc-446 OK) - IV to PO Switch IV Medications: Reviewed (ABX upgraded to IV CEFTRIAXONE & DOXYCYCLINE) - Home Meds Home Med List reviewed: Reviewed (Amlodipine, Lisinopril, Lovastatin, Jardiance, Metformin, NTG, Advair & Spiriva) - Current meds Current Medication Order Review: Reviewed - Comments Comments/Follow Ups: believes patient may benefit from AICD. Has Hx of Polycythemia vera
[2019-11-10] MEDS: DOXYCYCLINE 100 MG in Normal Saline 100 ML IVPB ×2 (10:42→23:04)
[2019-11-10] MEDS: cefTRIAXone 1 GM/50 ML BAG IVPB (12:04)
[2019-11-10 12:42] LABS: Troponin I < 0.05 ng/Ml (<0.06)
--- NOTE | 2019-11-10 16:38 | W.NUTCONSULT ---
Date of service: 11/10/19 Time of Service: 16:38 Nutritional Consult ASSESSMENT: 64 year old male admitted with lactic acidosis due to LAD deficiency, with CHF, dysphagia, Hep C, DM,and History of substance abuse. BMI indicates class 1 obesity. Labs indicate elevated blood sugars, DM consult pending. Following Diabetic Soft, bite sized meals and tolerating well, with 100% completion at most meals. Not at nutritional risk at this time. MONITORING AND EVALUATION: po intake, labs, weights daily Time Spent in Nutritional Counseling and Treatment: 0 time spent face to face
[2019-11-10] MEDS: Furosemide 40 MG/4 ML VIAL IVP (17:02)
[2019-11-10] MEDS: Budesonide/Formoterol 160/4.5 6 GM 60 PUFF INH IH (19:19)
[2019-11-11] VITALS (11 sets, daily range): BP systolic 114–148; BP diastolic 72–82; PULSE 73–109; RESP 4–22; TEMP 36–36.8; O2SAT 88–96
[2019-11-11] MEDS: Normal Saline Flush 10 ML SYR IVP ×3 (06:12→21:52)
[2019-11-11] MEDS: Albuterol/Ipratropium 3 ML UPD VIAL UPD ×3 (06:12→17:40)
[2019-11-11] MEDS: methylPREDNISolone SUCC 40 MG VIAL IVP ×2 (06:12→13:24)
[2019-11-11 07:07] LABS: Abs Immature Grans 0.05 k/cumm (0.0-0.09); HCT 45.7 % (40.0-50.0); HGB 15.3 g/dL (13.5-17.5); Immature Grans % 0.2 %; Lymphocytes % 3.8; Mean Corp. HGB Concentration 33.5 g/dL (32.0-36.0); Mean Corpuscular Hemoglobin 29.2 pg (27.0-33.0); Mean Corpuscular Volume 87.2 fL (80-95); Mean Platelet Volume 11.4 fL (8.0-11.0); Monocytes % 4.3; Neutrophils % 91.7; Platelet Count 317 x1000/uL (130-400); RBC 5.24 m/cumm (4.50-6.00); RBC Distribution Width 14.2 % (11.8-14.1); White Blood Cell Count 20.09 k/cumm (4.4-10.8)
[2019-11-11 07:15] LABS: Absolute Lymphocyte Count 0.76 k/cumm (1.2-3.4); Absolute Monocyte Count 0.86 k/cumm (0.11-0.7); Absolute Neutrophil Count 18.42 k/cumm (1.2-6.7)
[2019-11-11 07:18] LABS: Anion Gap 10.3 mmol/L (3-11); BUN 30 mg/dL (7-18); CO2 25.7 mmol/L (21.0-32.0); CREATININE 0.99 mg/dL (0.70-1.30); Calcium 8.6 mg/dL (8.5-10.1); Chloride 99 mmol/L (98-107); Glucose 268 mg/dL (74-106); Magnesium 2.3 mg/dL (1.8-2.4); Potassium 4.1 mmol/L (3.5-5.1); Sodium 135 mmol/L (136-145)
[2019-11-11] MEDS: Insulin Glargine 300 UNITS/3 ML PEN 30 UNITS SC (08:46)
[2019-11-11] MEDS: Insulin Aspart 300 UNITS/3 ML PEN SC ×4 (08:46→21:53)
[2019-11-11] MEDS: Rivaroxaban 10 MG TABLET 20 MG PO (08:48)
[2019-11-11] MEDS: Pantoprazole 40 MG VIAL IVP (08:48)
[2019-11-11] MEDS: dilTIAZem 60 MG TAB PO ×2 (08:48→15:50)
[2019-11-11] MEDS: Furosemide 40 MG/4 ML VIAL IVP ×2 (08:48→15:50)
[2019-11-11] MEDS: Metoprolol 50 MG TAB 100 MG PO ×2 (08:48→20:17)
[2019-11-11] MEDS: Budesonide/Formoterol 160/4.5 6 GM 60 PUFF INH IH ×2 (09:49→20:18)
[2019-11-11] MEDS: DOXYCYCLINE 100 MG in Normal Saline 100 ML IVPB ×2 (12:11→21:52)
[2019-11-11] MEDS: cefTRIAXone 1 GM/50 ML BAG IVPB (13:25)
--- NOTE | 2019-11-11 13:30 | W.INDIABCONS ---
Date of service: 11/11/19 Time of Service: 13:30 Diabetes Inpatient Consult DESCRIPTION/ASSESSMENT: Appreciate diabetes consult for Mr. Bejarano who is hospitalized with bronchitis. BMI varies 34-38 this hospitalization. A1c 7.3 3 months ago. Mr. Bejarano has blood sugars 263-354 taking sensitive insulin correction and half his usual Lantus dose. He is on 40mg methylprednisolone q 8 hours. AT home he takes Metformin as well. He is eating 40-65grams carbohydrate when meals are recorded. He is not visited today. Hyperglycemia likely secondary to steroid administration. INTERVENTION: Suggest he be given his usual Lantus dose initially. Recommend insulin dosing based on steroid administration if hyperglycemia persists after his basal insulin is doubled. Given that his glycemic control is close to goal when not on steroids, and that he is working with pharmacist at his provider office, no self management intervention suggested at this time. PLAN: Suggest increasing basal insulin to his usual dose of 60units consider steroid based insulin dosing if that is inadequate Will visit him as available. Time Spent in Nutritional Counseling and Treatment: 0 minutes face to face
--- NOTE | 2019-11-11 15:40 | PDOC.CMPRO ---
- If Service Date Differs Date of service: 11/11/19 Time of Service: 15:40 Care Management Progress Note S/O: Maximiliano is tearful during assessment, his daughter in law Alexa is present. Alexa is a large support for Maximiliano at home however he worried that there are many things he cannot do for himself anymore. He states his breathing and activity tolerance is poor, he is having difficulty managing his home including the chores around the home due to his breathing. He is worried about selling his home and not being eligible for community programs such as [facility] (medicaid) to assist with prescriptions. Maximiliano describes symptoms of anxiety related to his future and current diagnosis. CM provided education related to treatment plan, and diagnosis related to CHF, COPD and afib. CM will contact community connections and chronic behavioral health care manager to follow up related to ongoing support after discharge. A: Maximiliano is a 64 year old patient admitted with CHF, afib, COPD, on chronic oxygen at home. P: Maximiliano will be discharged home when medically ready, he will not need additional services. Maximiliano will have resumption of home oxygen through [facility]. Family to transport home at time of discharge.
--- NOTE | 2019-11-11 16:59 | PGE_ITS ---
Date of Service Date of service: 11/11/19 Time of Service: 16:59 Assessment and Plan Assessment and plan (1) Acute on chronic respiratory failure with hypoxia: Status: Acute Assessment and plan: Multifactorial, due to acute exacerbation of COPD, acute bacterial bronchitis, acute on chronic systolic CHF, pulmonary hypertension, JOSE, ?OHS. At baseline. Continue treatment of underlying COPD exacerbation/bronchitis with IV abx ( doxycycline, ceftriaxone), taper steroids - transition to PO, continue nebs. Continue diuresis. (2) Acute exacerbation of chronic obstructive pulmonary disease: Status: Acute Assessment and plan: As above (3) Acute bacterial bronchitis: Status: Acute Assessment and plan: As above. Improved on empiric doxy/ceftriaxone. Add acapella. (4) Acute on chronic systolic CHF (congestive heart failure): Status: Resolved Assessment and plan: Needs updated echo - last EF circa 35-40%, but episodes of Vtach may have to do with EF lower than that at this point. No echo available at [facility] until 11/13/2019 - may have to have this as outpatient. Continue diuresis; continue home metoprolol; PO cardizem - transition to long acting tomorrow. If EF on echo is very low, CCB may be contraindicated. (5) Atrial fibrillation with rapid ventricular response: Status: Resolved Assessment and plan: Rate controlled. (6) Nonsustained paroxysmal ventricular tachycardia: Status: Acute Assessment and plan: Hard to interpret in setting of acute pulmonary illness, but would benefit from outpatient cardiac monitoring, repeat echo and stress test. (7) Pulmonary hypertension: Status: Chronic Assessment and plan: Continue BiPAP, manage volume status. Would benefit from a repeat echocardiogram - as outpatient. (8) Diabetes mellitus: Status: Chronic Assessment and plan: Continue basal bolus insuslin. Qualifiers: Diabetes mellitus type: type 2 Diabetes mellitus joint terminal attack controller insulin use: without nursing home use Diabetes mellitus complication status: without complication Qualified Code(s): E11.9 - Type 2 diabetes mellitus without com plications (9) Lactic acidosis due to LAD deficiency: Status: Acute Assessment and plan: The likely reason for elevated lactate. Also, on metformin. I do not think that the rise in the lactate corresponds to his actual clinical condition. No longer trending. (10) JOSE treated with BiPAP: Status: Acute Assessment and plan: Continue BiPAP at night (11) DVT prophylaxis: Status: Acute Assessment and plan: On therapeutic xarelto - continue (12) Discharge planning issues: Status: Acute Assessment and plan: DNR/DNI. On medsurg floor. Anticipate discharge home in 48 hours Subjective Subjective Interval history since last seen: Feels a lot better. Denies dizziness, chest pain, nausea, vomiting. Cough is productive of yellowish sputum. Legs are edematous - has not been elevating them. Not back to normal yet. Exam Narrative Exam Narrative: General: Obese middle-aged male, sitting at the side of the bed, A&Ox3, looks better HEENT: EOMI, MMM Heart: Irregularly irregular rhythm, no m/r/g Lungs: persistent crackles at B bases; nearly no expiratory wheezing heard - much improved Abdomen: soft, nontender, nondistended Extremities: +1 edema BLE's Objective Objective Clinical Data: Abnormal lab results 11/11/19 11/11/19 Range/Units 06:19 06:19 WBC 20.09 H (4.4-10.8) k/cumm RDW 14.2 H (11.8-14.1) % MPV 11.4 H (8.0-11.0) fL Absolute Neutrophils 18.42 H (1.2-6.7) k/cumm Absolute Lymphocytes 0.76 L (1.2-3.4) k/cumm Absolute Monocytes 0.86 H (0.11-0.7) k/cumm Sodium 135 L (136-145) mmol/L BUN 30 H (7-18) mg/dL Glucose 268 H (74-106) mg/dL Vital Signs Temperature 36.0 C L 11/11/19 16:46 Temperature Source Tympanic 11/11/19 16:46 Pulse 88 11/11/19 16:46 Pulse Rhythm Irregular 11/10/19 20:31 Pulse 89 11/10/19 20:01 Respiratory Rate 17 11/11/19 16:46 Respiratory Effort 11/11/19 02:15 Respiratory Depth Normal 11/11/19 02:15 Respiratory Pattern Normal 11/11/19 02:15 Blood Pressure 147/82 H 11/11/19 16:46 Blood Pressure Mean 83 11/10/19 20:01 Blood Pressure Position Sitting 11/10/19 19:20 Pulse Oximetry 96 11/11/19 16:46 Oxygen Delivery Method Nasal Cannula 11/11/19 16:46 Oxygen Flow Rate 3 11/11/19 16:46 Fraction of Inspired Oxygen (FIO2) 50 11/09/19 20:31 Pain Level 0 11/11/19 16:46 Comment 11/10/19 23:44 Intake & Output 11/10/19 11/11/19 11/11/19 23:59 11:59 23:59 Intake Total 1324 / 3088.250 820 / 1400 580 / 1400 Output Total 1999 / 0 Balance -676 / -1211.750 820 / 1400 580 / 1400 Weight 115.2 kg Intake: IV 170 / 287.250 100 / 200 100 / 200 Oral 1154 / 2801 720 / 1200 480 / 1200 Output: Urine 1999 Other: Urine Color Yellow Urine Appearance Clear Clear Urine Odor Normal Comment pt stands to void at bedside. Stool Occult Blood Negative Stool Size Large Stool Characteristics Soft Brown Voiding Methods Urinal Laboratory Results WBC 20.09 k/cumm (4.4-10.8) H 11/11/19 06:19 RBC 5.24 m/cumm (4.50-6.00) 11/11/19 06:19 Hgb 15.3 g/dL (13.5-17.5) 11/11/19 06:19 Hct 45.7 % (40.0-50.0) 11/11/19 06:19 MCV 87.2 fL (80-95) 11/11/19 06:19 MCH 29.2 pg (27.0-33.0) 11/11/19 06:19 MCHC 33.5 g/dL (32.0-36.0) 11/11/19 06:19 RDW 14.2 % (11.8-14.1) H 11/11/19 06:19 Plt Count 317 x1000/uL (130-400) 11/11/19 06:19 MPV 11.4 fL (8.0-11.0) H 11/11/19 06:19 Immature Gran % 0.2 % 11/11/19 06:19 Neutrophils % 91.7 11/11/19 06:19 Lymphocytes % 3.8 11/11/19 06:19 Monocytes % 4.3 11/11/19 06:19 Eosinophils % 0.0 11/11/19 06:19 Basophils % 0.0 11/11/19 06:19 Absolute Neutrophils 18.42 k/cumm (1.2-6.7) H 11/11/19 06:19 Absolute Lymphocytes 0.76 k/cumm (1.2-3.4) L 11/11/19 06:19 Absolute Monocytes 0.86 k/cumm (0.11-0.7) H 11/11/19 06:19 Absolute Eosinophils 0.00 k/cumm (0.0-0.7) 11/11/19 06:19 Absolute Basophils 0.00 k/cumm (0.0-0.2) 11/11/19 06:19 Differential Comment Diff reviewed 11/09/19 17:00 RBC Morphology See below 11/09/19 17:00 Polychromasia Present 11/09/19 17:00 PT 11.3 sec (9.3-11.0) H 11/09/19 17:00 INR 1.1 (0.9-1.1) 11/09/19 17:00 ABG Sample Site Cancelled 11/10/19 07:51 ABG pH Cancelled 11/10/19 07:51 ABG pCO2 Cancelled 11/10/19 07:51 ABG pO2 Cancelled 11/10/19 07:51 ABG HCO3 Cancelled 11/10/19 07:51 ABG Total CO2 Cancelled 11/10/19 07:51 ABG O2 Saturation Cancelled 11/10/19 07:51 ABG Base Excess Cancelled 11/10/19 07:51 Oxygen Liter Flow Cancelled 11/10/19 07:51 FiO2 Cancelled 11/10/19 07:51 Sodium 135 mmol/L (136-145) L 11/11/19 06:19 Potassium 4.1 mmol/L (3.5-5.1) 11/11/19 06:19 Chloride 99 mmol/L (98-107) 11/11/19 06:19 Carbon Dioxide 25.7 mmol/L (21.0-32.0) 11/11/19 06:19 Anion Gap 10.3 mmol/L (3-11) 11/11/19 06:19 BUN 30 mg/dL (7-18) H 11/11/19 06:19 Creatinine 0.99 mg/dL (0.70-1.30) 11/11/19 06:19 Estimated GFR/1.73 m2 >= 60.00 (mL/min/1.73m2) 11/11/19 06:19 Glucose 268 mg/dL (74-106) H 11/11/19 06:19 Lactate 2.5 mmol/L (0.6-1.4) H* 11/10/19 08:25 Calcium 8.6 mg/dL (8.5-10.1) 11/11/19 06:19 Magnesium 2.3 mg/dL (1.8-2.4) 11/11/19 06:19 Total Bilirubin 0.6 mg/dL (0.2-1.0) 11/09/19 17:00 AST 22 U/L (15-37) 11/09/19 17:00 ALT 24 U/L (16-63) 11/09/19 17:00 Alkaline Phosphatase 110 U/L (46-116) 11/09/19 17:00 Troponin I < 0.05 ng/Ml (<0.06) 11/10/19 12:07 NT-Pro-B Natriuret Pep 347 pg/mL (<300) H 11/09/19 17:00 Total Protein 8.9 g/dL (6.4-8.2) H 11/09/19 17:00 Albumin 4.3 g/dL (3.4-5.0) 11/09/19 17:00 Procalcitonin 0.4 ng/mL 11/10/19 08:25
[2019-11-11 17:24] LABS: Glucose 411 mg/dL (74-106)
[2019-11-11] MEDS: predniSONE 20 MG TAB 40 MG PO (20:16)
[2019-11-12] VITALS (15 sets, daily range): BP systolic 118–154; BP diastolic 60–84; PULSE 73–101; RESP 2–20; TEMP 36–37.1; O2SAT 85–96
[2019-11-12] MEDS: dilTIAZem 60 MG TAB PO ×3 (00:09→15:52)
[2019-11-12] MEDS: Albuterol/Ipratropium 3 ML UPD VIAL UPD ×4 (00:09→17:38)
[2019-11-12 06:55] LABS: Absolute Basophil Count 0.02 k/cumm (0.0-0.2); Absolute Neutrophil Count 17.02 k/cumm (1.2-6.7); Anion Gap 11.1 mmol/L (3-11); BUN 27 mg/dL (7-18); Basophils % 0.1; CO2 24.9 mmol/L (21.0-32.0); CREATININE 0.92 mg/dL (0.70-1.30); Calcium 8.4 mg/dL (8.5-10.1); Chloride 99 mmol/L (98-107); Glucose 264 mg/dL (74-106); HCT 46.9 % (40.0-50.0); HGB 15.5 g/dL (13.5-17.5); Immature Grans % 0.5 %; Lymphocytes % 4.2; Magnesium 2.3 mg/dL (1.8-2.4); Mean Corpuscular Hemoglobin 28.8 pg (27.0-33.0); Mean Platelet Volume 11.4 fL (8.0-11.0); Monocytes % 6.3; Neutrophils % 88.9; Platelet Count 342 x1000/uL (130-400); Potassium 4.2 mmol/L (3.5-5.1); RBC 5.39 m/cumm (4.50-6.00); RBC Distribution Width 14.1 % (11.8-14.1); Sodium 135 mmol/L (136-145); White Blood Cell Count 19.15 k/cumm (4.4-10.8)
[2019-11-12 07:00] LABS: Absolute Monocyte Count 1.21 k/cumm (0.11-0.7)
--- NOTE | 2019-11-12 07:00 | HOME_ITS ---
Home Ventilator Equipment Home care [facility] Reason: Obstructive Sleep Apnea Make: ResMed Model: AirCurve Mask type: Face mask Mask size: Medium Mode: BiPAP Settings: / Oxygen bleed in (lpm): 2.5 Condition: Good Date last checked: 11/10/19 Year of last sleep study: Compliance Y Comments:
[2019-11-12] MEDS: Rivaroxaban 10 MG TABLET 20 MG PO (08:21)
[2019-11-12] MEDS: predniSONE 20 MG TAB 40 MG PO ×2 (08:23→20:17)
[2019-11-12] MEDS: Metoprolol 50 MG TAB 100 MG PO ×2 (08:23→20:17)
[2019-11-12] MEDS: Budesonide/Formoterol 160/4.5 6 GM 60 PUFF INH IH ×2 (08:26→20:23)
[2019-11-12] MEDS: Furosemide 40 MG/4 ML VIAL IVP ×3 (08:30→20:18)
[2019-11-12] MEDS: Pantoprazole 40 MG VIAL IVP (08:30)
[2019-11-12] MEDS: Normal Saline Flush 10 ML SYR IVP ×5 (08:30→21:34)
[2019-11-12] MEDS: Insulin Glargine 300 UNITS/3 ML PEN 60 UNITS SC (08:34)
[2019-11-12] MEDS: Insulin Aspart 300 UNITS/3 ML PEN SC ×4 (08:37→21:32)
[2019-11-12] MEDS: DOXYCYCLINE 100 MG in Normal Saline 100 ML IVPB ×2 (09:53→21:34)
[2019-11-12] MEDS: cefTRIAXone 1 GM/50 ML BAG IVPB (11:24)
--- NOTE | 2019-11-12 12:01 | PDOC.CMPRO ---
- If Service Date Differs Date of service: 11/12/19 Time of Service: 12:01 Care Management Progress Note S/O: No change in Maximiliano's plan today he remains acute. CM reviewed clinical chart and patient reviewed at interdisciplinary rounds. He continues diuretic, his weight is up today. He will have an echo on Saturday, per provider. CM contacted [facility] at primary care, referrals faxed to [facility], [facility] and [facility] for community supports. A: Maximiliano is a 64 year old patient admitted with CHF, afib, COPD, on chronic oxygen at home. P: Maximiliano will be discharged home when medically ready, he will not need additional services. Maximiliano will have resumption of home oxygen through [facility] [place]. Family to transport home at time of discharge.
--- NOTE | 2019-11-12 15:25 | W.PM.PROGNOT ---
Date of Service Date of service: 11/12/19 Time of Service: 15:25 Assessment and Plan Assessment and plan (1) Acute on chronic respiratory failure with hypoxia: Status: Resolved Assessment and plan: Multifactorial, due to acute exacerbation of COPD, acute bacterial bronchitis, acute on chronic systolic CHF, pulmonary hypertension, JOSE, ?OHS. At baseline. Continue treatment of underlying COPD exacerbation/bronchitis with IV abx ( doxycycline, ceftriaxone),PO steroid taper, continue nebs. Intensify diuresis. (2) Acute exacerbation of chronic obstructive pulmonary disease: Status: Acute Assessment and plan: As above (3) Acute bacterial bronchitis: Status: Acute Assessment and plan: As above. Improved on empiric doxy/ceftriaxone. Encouarge acapella. (4) Acute on chronic systolic CHF (congestive heart failure): Status: Resolved Assessment and plan: Start fluid restriction of 1500 cc. Increase IV lasix to TID. Needs updated echo - last EF circa 35-40%, but episodes of Vtach may have to do with EF lower than that at this point. No echo available at [facility] until 11/13/2019 - may have to have this as outpatient. Continue diuresis; continue home metoprolol; Continue PO cardizem. If EF on echo is very low, CCB may be contraindicated. (5) Atrial fibrillation with rapid ventricular response: Status: Resolved Assessment and plan: Rate controlled. Continue beta blockers, calcium channel blockers as above. (6) Nonsustained paroxysmal ventricular tachycardia: Status: Acute Assessment and plan: Hard to interpret in setting of acute pulmonary illness, but would benefit from outpatient cardiac monitoring, repeat echo and stress test. (7) Pulmonary hypertension: Status: Chronic Assessment and plan: Continue BiPAP, manage volume status. Would benefit from a repeat echocardiogram - as outpatient. (8) Diabetes mellitus: Status: Chronic Assessment and plan: Continue basal bolus insuslin. Qualifiers: Diabetes mellitus type: type 2 Diabetes mellitus long-term insulin use: without long-term use Diabetes mellitus complication status: without complication Qualified Code(s): E11.9 - Type 2 diabetes mellitus without complications (9) Lactic acidosis due to LAD deficiency: Status: Acute Assessment and plan: The likely reason for elevated lactate. Also, on metformin. I do not think that the rise in the lactate corresponds to his actual clinical condition. No longer trending. (10) JOSE treated with BiPAP: Status: Acute Assessment and plan: Continue BiPAP at night (11) DVT prophylaxis: Status: Acute Assessment and plan: On therapeutic xarelto - continue (12) Discharge planning issues: Status: Acute Assessment and plan: DNR/DNI. On medsur floor. Anticipate discharge home in 48 hours Subjective Subjective Interval history since last seen: Mr Bejarano states he is feeling better today, but he says that he has been drinking lots of water. Denies chest pain, nausea. He thinks his legs aren't so bad as far as swelling. Exam Narrative Exam Narrative: General: Obese middle-aged male, sitting at the side of the bed, A&Ox3, looks slightly more tachypenic than yesterday HEENT: EOMI, MMM Heart: Irregularly irregular rhythm, no m/r/g Lungs: No wheezing or crackles heard today, but slightly more dyspneic/tachypenic today Abdomen: soft, nontender, nondistended Extremities: +1 edema BLE's Objective Objective Clinical Data: Abnormal lab results 11/11/19 11/12/19 11/12/19 Range/Units 16:59 06:30 06:30 WBC 19.15 H (4.4-10.8) k/cumm MPV 11.4 H (8.0-11.0) fL Absolute Neutrophils 17.02 H (1.2-6.7) k/cumm Absolute Lymphocytes 0.80 L (1.2-3.4) k/cumm Absolute Monocytes 1.21 H (0.11-0.7) k/cumm Sodium 135 L (136-145) mmol/L Anion Gap 11.1 H (3-11) mmol/L BUN 27 H (7-18) mg/dL Glucose 411 H D 264 H D (74-106) mg/dL Calcium 8.4 L (8.5-10.1) mg/dL Vital Signs Temperature 37.0 C 11/12/19 11:18 Temperature Source Tympanic 11/12/19 11:18 Pulse 96 H 11/12/19 14:50 Pulse Rhythm Irregular 11/12/19 14:39 Pulse 89 11/10/19 20:01 Respiratory Rate 19 11/12/19 11:18 Respiratory Effort Non-Labored 11/12/19 14:39 Respiratory Depth Normal 11/12/19 14:39 Respiratory Pattern Normal 11/12/19 14:39 Blood Pressure 131/81 11/12/19 14:50 Blood Pressure Mean 83 11/10/19 20:01 Blood Pressure Position Sitting 11/10/19 19:20 Pulse Oximetry 95 11/12/19 11:18 Oxygen Delivery Method Nasal Cannula 11/12/19 11:18 Oxygen Flow Rate 2 11/12/19 11:18 Fraction of Inspired Oxygen (FIO2) 50 11/09/19 20:31 Pain Level 0 11/12/19 11:18 Comment 11/12/19 14:50 Intake & Output 11/11/19 11/12/19 11/12/19 23:59 11:59 23:59 Intake Total 1209 240 / 810 570 / 810 Balance 1209 240 / 810 570 / 810 Weight 117.2 kg 118.6 kg Intake: IV 250 / 350 Oral 960 / 1680 240 / 810 570 / 810 Other: Urine Appearance Clear Clear Clear Voiding Methods Toilet Laboratory Results WBC 19.15 k/cumm (4.4-10.8) H 11/12/19 06:30 RBC 5.39 m/cumm (4.50-6.00) 11/12/19 06:30 Hgb 15.5 g/dL (13.5-17.5) 11/12/19 06:30 Hct 46.9 % (40.0-50.0) 11/12/19 06:30 MCV 87.0 fL (80-95) 11/12/19 06:30 MCH 28.8 pg (27.0-33.0) 11/12/19 06:30 MCHC 33.0 g/dL (32.0-36.0) 11/12/19 06:30 RDW 14.1 % (11.8-14.1) 11/12/19 06:30 Plt Count 342 x1000/uL (130-400) 11/12/19 06:30 MPV 11.4 fL (8.0-11.0) H 11/12/19 06:30 Immature Gran % 0.5 % 11/12/19 06:30 Neutrophils % 88.9 11/12/19 06:30 Lymphocytes % 4.2 11/12/19 06:30 Monocytes % 6.3 11/12/19 06:30 Eosinophils % 0.0 11/12/19 06:30 Basophils % 0.1 11/12/19 06:30 Absolute Neutrophils 17.02 k/cumm (1.2-6.7) H 11/12/19 06:30 Absolute Lymphocytes 0.80 k/cumm (1.2-3.4) L 11/12/19 06:30 Absolute Monocytes 1.21 k/cumm (0.11-0.7) H 11/12/19 06:30 Absolute Eosinophils 0.00 k/cumm (0.0-0.7) 11/12/19 06:30 Absolute Basophils 0.02 k/cumm (0.0-0.2) 11/12/19 06:30 Differential Comment Diff reviewed 11/09/19 17:00 RBC Morphology See below 11/09/19 17:00 Polychromasia Present 11/09/19 17:00 PT 11.3 sec (9.3-11.0) H 11/09/19 17:00 INR 1.1 (0.9-1.1) 11/09/19 17:00 ABG Sample Site Cancelled 11/10/19 07:51 ABG pH Cancelled 11/10/19 07:51 ABG pCO2 Cancelled 11/10/19 07:51 ABG pO2 Cancelled 11/10/19 07:51 ABG HCO3 Cancelled 11/10/19 07:51 ABG Total CO2 Cancelled 11/10/19 07:51 ABG O2 Saturation Cancelled 11/10/19 07:51 ABG Base Excess Cancelled 11/10/19 07:51 Oxygen Liter Flow Cancelled 11/10/19 07:51 FiO2 Cancelled 11/10/19 07:51 Sodium 135 mmol/L (136-145) L 11/12/19 06:30 Potassium 4.2 mmol/L (3.5-5.1) 11/12/19 06:30 Chloride 99 mmol/L (98-107) 11/12/19 06:30 Carbon Dioxide 24.9 mmol/L (21.0-32.0) 11/12/19 06:30 Anion Gap 11.1 mmol/L (3-11) H 11/12/19 06:30 BUN 27 mg/dL (7-18) H 11/12/19 06:30 Creatinine 0.92 mg/dL (0.70-1.30) 11/12/19 06:30 Estimated GFR/1.73 m2 >= 60.00 (mL/min/1.73m2) 11/12/19 06:30 Glucose 264 mg/dL (74-106) H D 11/12/19 06:30 Lactate 2.5 mmol/L (0.6-1.4) H* 11/10/19 08:25 Calcium 8.4 mg/dL (8.5-10.1) L 11/12/19 06:30 Magnesium 2.3 mg/dL (1.8-2.4) 11/12/19 06:30 Total Bilirubin 0.6 mg/dL (0.2-1.0) 11/09/19 17:00 AST 22 U/L (15-37) 11/09/19 17:00 ALT 24 U/L (16-63) 11/09/19 17:00 Alkaline Phosphatase 110 U/L (46-116) 11/09/19 17:00 Troponin I < 0.05 ng/Ml (<0.06) 11/10/19 12:07 NT-Pro-B Natriuret Pep 347 pg/mL (<300) H 11/09/19 17:00 Total Protein 8.9 g/dL (6.4-8.2) H 11/09/19 17:00 Albumin 4.3 g/dL (3.4-5.0) 11/09/19 17:00 Procalcitonin 0.4 ng/mL 11/10/19 08:25
[2019-11-13] VITALS (13 sets, daily range): BP systolic 155–161; BP diastolic 91–93; PULSE 76–98; RESP 2–24; TEMP 35.6–36.5; O2SAT 86–97
[2019-11-13] MEDS: Albuterol/Ipratropium 3 ML UPD VIAL UPD ×3 (00:22→12:26)
[2019-11-13] MEDS: dilTIAZem 60 MG TAB PO (00:22)
[2019-11-13] MEDS: Furosemide 40 MG/4 ML VIAL IVP ×2 (01:45→09:56)
[2019-11-13 07:39] LABS: BUN 28 mg/dL (7-18); CREATININE 0.84 mg/dL (0.70-1.30); Calcium 8.4 mg/dL (8.5-10.1); Chloride 100 mmol/L (98-107); Glucose 259 mg/dL (74-106); Sodium 137 mmol/L (136-145)
[2019-11-13] MEDS: Normal Saline 500 ML 30 ML IV (09:56)
[2019-11-13] MEDS: Pantoprazole 40 MG VIAL IVP (09:56)
[2019-11-13] MEDS: Insulin Aspart 300 UNITS/3 ML PEN SC ×2 (09:56→12:04)
[2019-11-13] MEDS: DOXYCYCLINE 100 MG in Normal Saline 100 ML IVPB (09:56)
[2019-11-13] MEDS: Insulin Glargine 300 UNITS/3 ML PEN 60 UNITS SC (09:57)
[2019-11-13] MEDS: predniSONE 20 MG TAB 40 MG PO (09:57)
[2019-11-13] MEDS: dilTIAZem CD 180 MG CAPCR PO (09:58)
[2019-11-13] MEDS: Rivaroxaban 10 MG TABLET 20 MG PO (09:59)
[2019-11-13] MEDS: Metoprolol 50 MG TAB 100 MG PO (09:59)
--- NOTE | 2019-11-13 10:42 | DI.US_ITS ---
APPROVED REPORT EXAM: Comprehensive 2D, Doppler, and color-flow Echocardiogram Patient Location: In-Patient Room/Bed: 211A Indications: CHF, Atrial Fib, Pulmonary HTN Conclusion Left Ventricle : The left ventricle is moderately dilated. Left ventricular systolic function is mod erately decreased. There is normal left ventricular wall thickness. The posterior wall thickness is normal. The septum is normal. There is global mild hypokinesis with severe hypokinesis of the apex. Diastolic function is indeterminate. LVEF is 35-39%. Right Ventricle : Right ventricle is not well visualized. Atria : The left atrium is dilated. Right atrium is mildly dilated. Aortic Valve : Aortic valve is calcified. No aortic regurgitation is present. Mild aortic stenosis. Mitral Valve : There is mitral annular calcification. Trace mitral regurgitation. No evidence of mitr al valve stenosis. Great Vessels : The ascending aorta is normal in size. Aortic arch is not well visualized. The ascend ing aorta size is mildly dilated. IVC is normal in size and collapses >50% with inspiration. Estima radha RVSP is 35-40 mmHg. Compared to echocardiogram from 06/28/2014: There is no significant change. Wall motion Left Ventricle The left ventricle is moderately dilated. Left ventricular systolic function is moderately decreased. There is normal left ventricular wall thickness. The posterior wall thickness is normal. The septum is normal. There is global mild hypokinesis with severe hypokinesis of the apex. Diastolic function i s indeterminate. LVEF is 35-39%. Right Ventricle Right ventricle is not well visualized. Atria The left atrium is dilated. Right atrium is mildly dilated. Aortic Valve Aortic valve is calcified. Mild aortic stenosis. No aortic regurgitation is present. Mitral Valve There is mitral annular calcification. No evidence of mitral valve stenosis. Trace mitral regurgitati on. Tricuspid Valve The tricuspid valve is normal in structure. There is no tricuspid valve stenosis. Mild tricuspid regu rgitation. Pulmonic Valve Pulmonic valve is not well visualized. There is no pulmonic valvular stenosis. Trace pulmonic regurgi tation. Great Vessels The aortic root is normal in size. The aortic root size is normal. The ascending aorta is normal in s ize. Aortic arch is not well visualized. The ascending aorta size is mildly dilated. IVC is normal in size and collapses >50% with inspiration. Estimated RVSP is 35-40 mmHg. Pericardium There is no pericardial effusion. 2D Dimensions IVSD d PLAX 0.99 cm M: 0.6-1.2 LV Vol A2C d MOD 144.3 mL LVPW d PLAX 0.99 cm M: 0.6 - 1.2 LV Vol A4C d MOD 161.9 mL LVID d PLAX 6.41 cm M: 4.2 - 5.8 LA vol/ BSA A2C s A-L 43.7 mL/m2 LVDs 5.30 cm M: 2.5 - 4.0 LA vol/ BSA A4C s A-L 37.2 mL/m2 Ao Root d 3.44 cm M: 3.1 - 3.7 LA Vol/ BSA Biplane s A-L 41.3 mL/m2 RA Area A4C 27.77 cm2 LA Area A4C s MOD 27.14 cm2 RA Vol/ BSA A4C s A-L 45.3 mL/m2 LA Area A2C s MOD 28.73 cm2 Ao Asc Diam d 3.69 cm M: 2.6 - 3.4 LV EF A4C MOD 37.7 % LV EF Teichholz 35.2 % LV EF A2C MOD 40.0 % LVEF (Wright's) 38.21 % M: 52 - 72 LV EF Biplane MOD 38.2 % LV Volume 112.17 mL M: 62 - 150 LV Volume Index 48.98 mL/m2 M: 34 - 74 LV Vol Biplane MOD 156.1 mL FS 17.20 % LV Diastology MV E' medial 0.132 (>0.07 m/s) E/A Ratio 2.0 LV E/e MED 7.50 (<14) MV E Vmax 0.99 (0.4-1.3 m/s) MV E' lateral 0.161 (>0.1 m/s) MV A Vmax 0.50 (0.4-1.3 m/s) LV E/e LAT 6.15 (<14) MV E/A Ratio 1.94 MV E/E' medial 7.52 MV E/E' lateral 6.15 Aortic Valve LVOT Area 3.44 cm2 AoV Area Vmax 1.88 cm2 LVOT Vmax 1.07 m/s AoV Area/ BSA (Vmax) 0.82 cm2/m2 LVOT Mean Rei. 0.70 m/s MARY Mean Rei. 1.64 cm2 LVOT Peak Grad 4.6 mmHg MARY Mean Rei. Index 0.72 cm2/m2 LVOT Mean Grad 2.3 mmHg LVOT VTI 0.210 m LVOT Diam s 2.05 cm (M/F) 1.5-2.5 AoV Vmax 1.96 (0.5-1.3 m/s) Velocity Ratio 0.54 AoV Mean Rei. 1.47 m/s AoV Peak Grad 15.4 mmHg LVOT SV 72.48 mL AoV Mean Grad 9.4 (<5 mmHg) AoV VTI 0.347 (0.18-0.25 m) AoV Area VTI 2.09 (2.5-4.5 cm2) AoV Area/ BSA (VTI) 0.91 cm/m2 Mitral Valve MV DT 170 (160-240 msec) MV PHT 49 msec MV Area PHT 4.47 cm2 Pulmonary Valve PV Vmax 1.22 (0.5-1.5 m/s) RVOT Peak Gr. 4.22 mmHg PV Peak Grad 5.9 mmHg RVOT Mean Gr. 1.95 mmHg PV Mean Grad 2.9 mmHg RVOT VTI 0.152 m PV VTI 0.178 m RVOT Vmax 1.03 m/s Tricuspid Valve TR Peak Grad 36.7 mmHg TR Vmax 3.03 m/s RA Pressure 3.00 mmHg RVSP (TR) 39.8 mmHg
[2019-11-13] MEDS: Budesonide/Formoterol 160/4.5 6 GM 60 PUFF INH IH (12:43)
[2019-11-13] MEDS: cefTRIAXone 1 GM/50 ML BAG IVPB (12:52)
--- NOTE | 2019-11-13 12:55 | DSE_ITS ---
Date of service: 11/13/19 Time of Service: 12:55 DS: Diagnosis Discharge Diagnosis (1) Acute on chronic respiratory failure with hypoxia: Status: Resolved (2) Acute exacerbation of chronic obstructive pulmonary disease: Status: Acute (3) Acute bacterial bronchitis: Status: Acute (4) Acute on chronic systolic CHF (congestive heart failure): Status: Resolved (5) Atrial fibrillation with rapid ventricular response: Status: Resolved (6) Nonsustained paroxysmal ventricular tachycardia: Status: Acute (7) Pulmonary hypertension: Status: Chronic (8) Diabetes mellitus: Status: Chronic (9) Lactic acidosis due to LAD deficiency: Status: Acute (10) JOSE treated with BiPAP: Status: Acute Discharge Plan Disposition Patient Disposition: HOME Condition: Improving Discharge Details Chief Complaint: SOB Clinical Impression: Acute exacerbation of chronic obstructive pulmonary disease, CHF (congestive heart failure), Atrial fibrillation with rapid ventricular response, Leukocytosis Reason For Visit: CHF,COPD,ATRIAL FIBRILLATION W/RVR Admit Date/Time: 11/09/19 18:46 Admit Provider: Declan Sesay Attending Provider: Declan Sesay Primary Care Provider: Darci Yan ED Provider: Juan Luis Armendariz Hospital Course Hospital Course: Mr Bejarano is a 64 year old male with PMHx of CAD s/p stent, Chronic systolic CHF, O2 dependent COPD, chronic hypoxic respiratory failure, chronic Afib on xarelto, JOSE on home BiPAP, who was admitted to [facility] ICU under the hospitalist service on 11/10/2019 with acute on chronic hypoxic respiratory failure due to acute on chronic systolic CHF, acute exacerbation of COPD due to acute bronchitis, but also rapid atrial fibrillation. He was briefly treated with cardizem drip, but transitioned to PO cardizem by hospital day 2 and has remained rate controlled ever since. He was diuresed, initiated on empiric doxycycline and ceftriaxone, systemic steroids, scheduled/prn nebs and placed on BiPAP. His respiratory status quickly improved and he was transitioned to his baseline oxygen at 2.5 L/min. He did require high dose diuresis, and his outpatient lasix rx is being changed to 60 mg PO BID. The patient was advised to monitor his sodium intake and limit it to 2 grams/day. His EF on the echo done on this admission is 35- 59%, and he did have several bouts of paroxysmal nonsustained ventricular tachycardia, asymptomatic, on this admission. He would benefit from outpatient cardiac monitoring and nuclear stress test. The patient fell out of follow up with cardiology and would benefit from re-establishing care. We are referring him to Dr Prado on discharge. Mr Viera will complete a short steroid taper and 2 more days of antibitoics at home. He is medically stable for discharge home today. He is being discharged home with a nebulizer machine. Care for patient as well as completion of his discharge summary took 45 minutes. Home Meds and New Rx's Prescriptions: New diltiazem HCl 180 mg Capsule,Extended Release 24hr 180 mg PO QAM Qty: 30 RF: 0 prednisone 20 mg Tablet See Rx Instructions .ROUTE .COMPLEX Qty: 14 RF: 0 pantoprazole [Protonix] 40 mg tablet,delayed release (DR/EC) 40 mg PO DAILY Qty: 30 RF: 0 doxycycline hyclate 100 mg tablet 100 mg PO BID Qty: 5 RF: 0 cefuroxime axetil 500 mg tablet 500 mg PO BID Qty: 4 RF: 0 furosemide [Lasix] 40 mg tablet 60 mg PO BID Qty: 90 RF: 0 lovastatin 20 mg tablet 20 mg PO QPM Qty: 30 RF: 0 Continued amlodipine [Norvasc] 10 mg tablet 10 mg PO QAM Qty: 90 RF: 4 Lantus Solostar U-100 Insulin 100 unit/mL (3 mL) insulin pen 60 unit subcut DAILY Qty: 4 RF: 5 (DME) lancets [OneTouch UltraSoft Lancets] Misc 1 ea Miscellaneous TID Qty: 200 RF: 4 lisinopril 40 mg tablet 40 mg PO DAILY Qty: 90 RF: 4 metformin [Glucophage] 1,000 mg tablet 1,000 mg PO BID Qty: 180 RF: 4 metoprolol tartrate 100 mg tablet 100 mg PO BID Qty: 180 RF: 4 (DME) pen needle, diabetic [BD Ultra-Fine Kenisha Pen Needle] 32 gauge x 5/32 needle 1 ea Miscellaneous DAILY Qty: 100 RF: 4 (DME) OneTouch Ultra Test strip 1 ea Miscellaneous QID Qty: 300 RF: 5 Jardiance 25 mg tablet 25 mg PO DAILY Qty: 90 RF: 4 OXYGEN RF: 0 ONE TOUCH BASIC SYSTEM 1 EACH kit 1 ea Miscellaneous TID Qty: 1 RF: 0 nitroglycerin [Nitrostat] 0.4 MG tablet, sublingual 1 tab Sublingual PRN Qty: 25 RF: 4 Xarelto 20 mg tablet 20 mg PO DAILY Qty: 90 RF: 3 fluticasone propion-salmeterol [Advair Diskus] 250-50 mcg/dose blister with device 1 inh Inhalation BID Qty: 60 RF: 4 Spiriva with HandiHaler 18 mcg capsule, w/inhalation device 18 mcg Inhalation DAILY Qty: 30 RF: 4 ipratropium-albuterol 0.5 mg-3 mg(2.5 mg base)/3 mL solution for nebulization 3 ml Inhalation Q6H Qty: 180 RF: 5 Changed albuterol sulfate 2.5 MG/3 ML solution for nebulization 2.5 mg Inhalation Q4H PRN PRN (Reason: shortness of breath or wheezing) Qty: 180 RF: 4 Discontinued furosemide [Lasix] 80 mg tablet 80 mg PO DAILY Qty: 90 RF: 4 lovastatin 40 mg tablet 80 mg PO DAILY Qty: 180 RF: 4 ipratropium-albuterol 0.5 mg-3 mg(2.5 mg base)/3 mL solution for nebulization 3 ml Inhalation Q4H PRN Qty: 6 RF: 5 Discharge Instructions Instructions: Cefuroxime (By mouth), Metoprolol (By mouth), Diltiazem (By mouth), Doxycycline (By mouth), Prednisone (By mouth), Low Sodium Diet (DC) Additional Instructions: Finish your antibiotics and steroids as prescribed. Return to the hospital with any fever, bleeding, chest pain, or shortness of breath. Follow up with your PCP within 1 week, as well as cardiology. Follow up for outpatient stress testing. Stand Alone Forms: Nursing Discharge Form Referrals: Declan Prado MD [ CONSULTING PHYSICIAN] - (Office will call to make an appointment with you. ) Darci Yan MD [Primary Care Provider] - 11/20/19 1:00 pm Activity:: Activity as Tolerated Equipment/Supplies:: nebulizer machine Diet:: Low Sodium Discharge Orders Discharge Orders: Discharge Order (Routine); Ordered 11/13/19 Ordered By: Veena Miller Other Ambulatory Orders: NM MPI rest & stress grp (Routine) Timeframe: 2 Weeks Facility: [facility] - Location: CARDIAC LAB Ordered By: Veena Miller Cardiac Event Recorder (Outpt) (ONCE) Timeframe: 20191114 Facility: [facility] - Location: Respiratory Therapy Ordered By: Veena Miller DS: Summary Status at Discharge Functional status at discharge: independent ambulation Overall status at discharge: patient is progressing back to baseline Mental Status: mental status grossly normal Speech and Movement: speech and movement normal Mood: congruent mood Affect: normal affect Exam Narrative Exam Narrative: General: Obese middle-aged male, sitting at the side of the bed, A&Ox3, looks better - no tachypnea/dyspnea HEENT: EOMI, MMM Heart: Irregularly irregular rhythm, no m/r/g Lungs: quiet wheezing on expiration B, no rales Abdomen: soft, nontender, nondistended Extremities: +1 edema BLE's, wearing TEDs Psych Mental Status: mental status grossly normal Speech and Movement: speech and movement normal Mood: congruent mood Affect: normal affect DS: Data Vitals/I&O Vitals and I&O: Vital Signs Temperature 36.2 C L 11/13/19 12:31 Temperature Source Tympanic 11/13/19 12:31 Pulse 90 11/13/19 12:37 Pulse Rhythm Irregular 11/13/19 10:40 Pulse 89 11/10/19 20:01 Respiratory Rate 20 11/13/19 12:37 Respiratory Effort 11/13/19 10:40 Respiratory Depth Normal 11/13/19 10:40 Respiratory Pattern Normal 11/13/19 10:40 Blood Pressure 161/93 H 11/13/19 12:31 Blood Pressure Mean 83 11/10/19 20:01 Blood Pressure Position Sitting 11/10/19 19:20 Pulse Oximetry 97 11/13/19 12:37 Oxygen Delivery Method Nasal Cannula 11/13/19 12:31 Oxygen Flow Rate 2 11/13/19 12:31 Fraction of Inspired Oxygen (FIO2) 21 11/13/19 08:34 Pain Level 0 11/13/19 12:31 Comment 11/12/19 14:50 Intake & Output 11/12/19 11/13/19 11/13/19 23:59 11:59 23:59 Intake Total 1260 / 1600 540 / 1120 580 / 1120 Output Total 2175 / 2175 1660 / 1660 Balance -915 / -575 -1120 / -540 580 / -540 Weight 118.6 kg 116.7 kg Intake: IV 150 / 250 100 / 100 Oral 1110 / 1350 540 / 1020 480 / 1020 Output: Urine 2175 / 2175 1660 / 1660 Other: Urine Color Yellow Yellow Urine Appearance Clear Clear Urine Odor Normal Voiding Methods Urinal Urinal Data Completed and Pending Completed studies during hospitalization [Text1]: CXR 11/09/2019: Cardiomegaly and mild CHF. Echo 11/13/2019: Left Ventricle : The left ventricle is moderately dilated. Left ventricular systolic function is moderately decreased. There is normal left ventricular wall thickness. The posterior wall thickness is normal. The septum is normal. There is global mild hypokinesis with severe hypokinesis of the apex. Diastolic function is indeterminate. LVEF is 35-39%. Right Ventricle : Right ventricle is not well visualized. Atria : The left atrium is dilated. Right atrium is mildly dilated. Aortic Valve : Aortic valve is calcified. No aortic regurgitation is present. Mild aortic stenosis. Mitral Valve : There is mitral annular calcification. Trace mitral regurgitation. No evidence of mitral valve stenosis. Great Vessels : The ascending aorta is normal in size. Aortic arch is not well visualized. The ascending aorta size is mildly dilated. IVC is normal in size and collapses >50% with inspiration. Estimated RVSP is 35-40 mmHg. Compared to echocardiogram from 06/28/2014: There is no significant change. Labs on day of discharge: Labs from last 24 hours 11/13/19 06:42 Sodium 137 Potassium 4.0 Chloride 100 Carbon Dioxide 27.0 Anion Gap 10.0 BUN 28 H Creatinine 0.84 Estimated GFR/1.73 m2 >= 60.00 Glucose 259 H Calcium 8.4 L Magnesium 2.0 Preliminary micro results at discharge 11/09/19 18:35 Blood Culture - Preliminary Blood NO GROWTH 72 HOURS 11/09/19 18:17 Blood Culture - Preliminary Blood NO GROWTH 72 HOURS [facility] Medical History (Updated 11/12/19 @ 15:28 by Veena Miller MD) CHF (congestive heart failure) (Chronic) systolic - EF 35-40% in 2013 Chronic atrial fibrillation (Chronic 02/09/16) Chronic obstructive lung disease (Chronic) 2005-prolonged intubation; pneumothorax Chronic respiratory failure with hypoxia (Acute) Controlled type 2 diabetes mellitus without complication, with long-term current use of insulin (Chronic 03/06/18) Coronary atherosclerosis of hoh coronary vessel (Chronic) Dysphagia (Acute) Essential hypertension (Chronic 07/07/13) Hyperlipidemia (Chronic) Lactic acidosis due to LAD deficiency (Acute) Nuclear senile cataract (Resolved 11/03/12) Obesity (Chronic) JOSE treated with BiPAP (Acute) Polycythemia vera (Chronic) Smoker (Chronic) Substance abuse (Chronic) Viral hepatitis C (Chronic) Treated successfully 2017 Surgical History (Updated 11/10/19 @ 11:42 by Veena Miller MD) History of intravascular stent placement (Chronic) Stent placement (~2004) LCX Family History Mother Essential hypertension Grandmother Neoplasm Father Diabetes Heart disease Social History Smoking/Tobacco Use Status: Former Tobacco Use Alcohol Intake: current Alcohol Intake frequency: a few times a month Drug use: Current Sobriety Substance use type: does not use Household members: none Pets and animals: Yes Pets and animals: cat(s) Reba/Denominational: N/A Special reba needs: No
--- NOTE | 2019-11-13 16:40 | PDOC.CMDIS ---
- If Service Date Differs Date of service: 11/13/19 Time of Service: 16:40 LACE Index Scoring Tool - Questions: Length of Stay (in days): 4 - 6 Acuity (Admit via E.D.?): Yes Comorbidities: Diabetes w/o Complication, Congestive Heart Failure, Chronic Pulmonary Disease E.D. Visits: 1 - Answers: Total Score: 13 Risk of Readmission: High Risk Care Management Discharge Reason for Hospitalization: CHF, COPD, AFIB Discharge Plan: Maximiliano will be discharged home with no need additional services. He will have resumption of home oxygen through [facility]. Family to transport home via private vehicle. Maximiliano received a new nebulizer and CM coordinated prior authorization for nebulizer medications with [facility] in [place]. Patient/Family Education Needs: Discharge plan, limitations, follow up plan, Ask Me Three.
== END 2019-11-13 15:45 | disposition home or self-care (01) | DRG 190 ==
LOC: ER 20:02 → ICU 20:10 → MS 11-10 20:39
PROVIDERS: Internal Medicine; Admitting Provider General Practice; Emergency Provider Student in an Organized Health Care Education/Training Program; PCP Family Medicine; Visit Provider General Practice
DX: J44.0 Chronic obstructive pulmonary disease with (acute) lower respiratory infection (principal); I50.23 Acute on chronic systolic (congestive) heart failure; J96.21 Acute and chronic respiratory failure with hypoxia; I47.2 Ventricular tachycardia; J20.9 Acute bronchitis, unspecified; J44.1 Chronic obstructive pulmonary disease with (acute) exacerbation; I48.91 Unspecified atrial fibrillation; I27.20 Pulmonary hypertension, unspecified; E11.9 Type 2 diabetes mellitus without complications; G47.33 Obstructive sleep apnea (adult) (pediatric); I25.10 Atherosclerotic heart disease of native coronary artery without angina pectoris; Z95.5 Presence of coronary angioplasty implant and graft; Z79.01 Long term (current) use of anticoagulants; Z79.4 Long term (current) use of insulin; Z66 Do not resuscitate
CPT/HCPCS: 36410; 36415; 80048; 80053; 82805; 82947; 84145; 85027; 87040; 93005; 93306; 94618; 94640; 96365; 96375; 96376; 99222; 99232; 99233; 99239; 99291; 71045; 83605; 83735; 83880; 84484; 85025; 85610; 87070; 87205; 93010; J0696; J1940; J2930; J7512; J7613; J7620

== ENCOUNTER → 2019-11-10 08:25 | Outpatient (BNVA) | payer MEDICARE, SELFPAY | PROVIDERS: PCP Family Medicine; Referring Provider Family Medicine; Visit Provider Internal Medicine Cardiovascular Disease | DX: R69 Illness, unspecified (principal) ==

== ENCOUNTER → 2019-12-21 14:28 | Outpatient (BNVA) | payer MEDICARE, SELFPAY | PROVIDERS: PCP Family Medicine; Referring Provider Family Medicine; Visit Provider Internal Medicine Cardiovascular Disease | DX: I50.9 Heart failure, unspecified (principal); I48.20 Chronic atrial fibrillation, unspecified; I11.0 Hypertensive heart disease with heart failure; J44.9 Chronic obstructive pulmonary disease, unspecified; I42.9 Cardiomyopathy, unspecified | CPT/HCPCS: 99204; 99442 ==

== ENCOUNTER 2020-02-08 03:43 | Outpatient (CLI) | payer MEDICARE, SELFPAY ==
[2020-02-08 11:31] LABS: Abs Immature Grans 0.04 k/cumm (0.0-0.09); Absolute Eosinophil Count 0.48 k/cumm (0.0-0.7); Absolute Lymphocyte Count 1.86 k/cumm (1.2-3.4); Basophils % 0.6; Eosinophils % 3.9; HCT 49.1 % (40.0-50.0); HGB 15.5 g/dL (13.5-17.5); Immature Grans % 0.3 %; Lymphocytes % 15.1; Mean Corp. HGB Concentration 31.6 g/dL (32.0-36.0); Mean Corpuscular Hemoglobin 27.8 pg (27.0-33.0); Mean Corpuscular Volume 88.2 fL (80-95); Mean Platelet Volume 10.6 fL (8.0-11.0); Monocytes % 10.5; Neutrophils % 69.6; Platelet Count 466 x1000/uL (130-400); RBC 5.57 m/cumm (4.50-6.00); RBC Distribution Width 14.5 % (11.8-14.1); White Blood Cell Count 12.34 k/cumm (4.4-10.8)
[2020-02-08 11:40] LABS: Absolute Basophil Count 0.07 k/cumm (0.0-0.2); Absolute Neutrophil Count 8.59 k/cumm (1.2-6.7)
== END 2020-02-08 04:03 ==
PROVIDERS: PCP Family Medicine; Visit Provider Family Medicine
DX: I10 Essential (primary) hypertension (principal); D72.829 Elevated white blood cell count, unspecified; I48.20 Chronic atrial fibrillation, unspecified
CPT/HCPCS: 36415; 85025

== ENCOUNTER → 2020-03-21 10:10 | Outpatient (BNVA) | payer MEDICARE, SELFPAY | PROVIDERS: PCP Family Medicine; Referring Provider Family Medicine; Visit Provider Internal Medicine Cardiovascular Disease | DX: I50.9 Heart failure, unspecified (principal); I48.2 Chronic atrial fibrillation; I25.10 Atherosclerotic heart disease of native coronary artery without angina pectoris; I10 Essential (primary) hypertension; I11.0 Hypertensive heart disease with heart failure | CPT/HCPCS: 99212; 99441 ==

== ENCOUNTER → 2020-06-13 09:25 | Outpatient (BNVA) | payer MEDICARE, SELFPAY | PROVIDERS: PCP Nurse Practitioner; Referring Provider Nurse Practitioner; Visit Provider Internal Medicine Cardiovascular Disease | DX: I25.10 Atherosclerotic heart disease of native coronary artery without angina pectoris (principal); I50.9 Heart failure, unspecified; I11.0 Hypertensive heart disease with heart failure; I48.20 Chronic atrial fibrillation, unspecified; J44.9 Chronic obstructive pulmonary disease, unspecified; E11.9 Type 2 diabetes mellitus without complications; Z79.4 Long term (current) use of insulin | CPT/HCPCS: 99214 ==

== ENCOUNTER 2020-07-18 07:23 | Emergency (ER) | payer MEDICARE, SELFPAY ==
[2020-07-18 07:27] VITALS: BP 148/60; PULSE 69; RESP 20; TEMP 36.6; O2SAT 92
--- NOTE | 2020-07-18 07:56 | ED.GENADUL_ITS ---
Discharge Plan Disposition Patient Disposition: HOME Condition: Stable Discharge Details Clinical Impression: Right shoulder pain Primary Care Provider: Meg Maradiaga ED Provider: Fabi Armendariz Home Meds and New Rx's Prescriptions: Continued amlodipine [Norvasc] 10 mg tablet 10 mg PO QAM Qty: 90 RF: 4 Lantus Solostar U-100 Insulin 100 unit/mL (3 mL) insulin pen 60 unit subcut DAILY Qty: 4 RF: 5 lisinopril 40 mg tablet 40 mg PO DAILY Qty: 90 RF: 4 metformin [Glucophage] 1,000 mg tablet 1,000 mg PO BID Qty: 180 RF: 4 metoprolol tartrate 100 mg tablet 100 mg PO BID Qty: 180 RF: 4 (DME) pen needle, diabetic [BD Ultra-Fine Kenisha Pen Needle] 32 gauge x 5/32 needle 1 ea Miscellaneous DAILY Qty: 100 RF: 4 nitroglycerin [Nitrostat] 0.4 mg tablet, sublingual 0.4 mg Sublingual PRN Qty: 25 RF: 1 furosemide [Lasix] 40 mg tablet 60 mg PO BID Qty: 270 RF: 4 rosuvastatin 10 mg tablet 10 mg PO DAILY Qty: 90 RF: 4 OXYGEN RF: 0 ONE TOUCH BASIC SYSTEM 1 EACH kit 1 ea Miscellaneous TID Qty: 1 RF: 0 (DME) blood sugar diagnostic Strip 1 ea Miscellaneous QID Qty: 300 RF: 5 (DME) lancets [OneTouch UltraSoft Lancets] Misc 1 ea Miscellaneous TID Qty: 204 RF: 4 albuterol sulfate 2.5 mg /3 mL (0.083 %) solution for nebulization 2.5 mg Inhalation Q4H PRN PRN (Reason: shortness of breath or wheezing) Qty: 180 RF: 4 Jardiance 25 mg tablet 25 mg PO DAILY Qty: 90 RF: 4 fluticasone propion-salmeterol [Advair Diskus] 250-50 mcg/dose blister with device 1 inh Inhalation BID Qty: 60 RF: 4 Xarelto 20 mg tablet 20 mg PO DAILY Qty: 90 RF: 3 Spiriva with HandiHaler 18 mcg capsule, w/inhalation device 18 mcg Inhalation DAILY Qty: 30 RF: 4 Discharge Instructions Instructions: Shoulder Pain (ED) Additional Instructions: Please return immediately to the emergency department if you develop any new or worsening symptoms, if your condition does not improve as expected, or if you become otherwise concerned. It is extremely important that you call soon as possible to make an appointment to be seen in follow-up for this visit by your primary care doctor. Referrals: Meg Maradiaga NP [Primary Care Provider] - Discharge Data Discharge Date/Time-TO BE ENTERED AT DEPARTURE: 07/18/20 10:32 Medical Decision Making Maximiliano Bejarano is a 64-year-old man who presented to the emergency department with shoulder pain for 3 weeks after hitting his right shoulder accidentally against a wall. On exam patient is well and nontoxic-appearing. There is tenderness over the anterior humeral head on the right. Normal examination of the clavicle. No other tenderness to the humerus. No extension beyond 90 degrees. Internal and external rotation is intact. Right upper extremity is neurovascularly intact. There is no abnormality is appreciable to me of the neck in the area that the patient complained of being swelling in the mirror. Concern for likely rotator cuff injury versus less likely bony pathology. Exam/history is not consistent with septic arthritis, cellulitis, osteomyelitis, other infectious etiology of symptoms, acute emergent cervical spine pathology, DVT, other emergent vascular pathology. Plan for x-rays. X-rays negative. Plan for sling, outpatient follow-up with orthopedics. I had a lengthy discussion with Patient regarding return to emergency department precautions, home care, and importance of outpatient follow-up. Pt verbalizes understanding of the plan and is amenable. Patient discharged to home with clear plan for outpatient follow-up. All questions were answered. Disposition decision was made weighing the risks and benefits of hospitalization versus outpatient treatment, the risk for further decompensation, and the patient's wishes. Medical Records Medical records reviewed: Yes I reviewed the patient's medical records. Imaging Data Radiologic Study: Attestation: I personally reviewed and interpreted this imaging study as follows: Radiologist's impression: EXAM: XR SHOULDER RT COMPLETE 2+V CLINICAL HISTORY: trauma, pain, decreased ROM TECHNIQUE: COMPARISON: CR XR HUMERUS RT from 07/18/2020 FINDINGS: Five views of the shoulder and 2 additional views of the humerus were obtained. There are moderate to severe degenerative changes of the acromioclavicular and glenohumeral joints. There is no evidence of acute fracture or glenohumeral dislocation. No humeral fracture seen. HPI General Date/Time Provider Initiated Documentation: 07/18/20 07:54 . Limitations to Documentation: no limitations . Information obtained by: patient, RN notes reviewed and old records reviewed . HPI Narrative: Maximiliano Bejarano is a 64-year-old man with a history of hyperlipidemia, hypertension, diabetes, COPD, atrial fibrillation on Coumadin, pulmonary hypertension presenting to the emergency department with shoulder pain. Patient reports that approximately 3 weeks ago he was carrying something heavy when he accidentally hit his right shoulder against the wall. Patient reports that since that time he has had achiness in his right shoulder and upper arm. He reports that he rolled over in bed approximately 3 weeks ago and felt a pop in his right shoulder. Since that time he has also had some decreased range of motion. He is able to internally and externally rotate, but cannot lift his arm laterally above 45 degrees or so. Patient states that his shoulder goes out of joint all the time but he is usually able to pop it back in by moving his arm around. Patient states he thinks his shoulder is again out of joint. He denies any other pain, numbness, weakness, fever, vomiting, diarrhea, rash. He does note that in the past week he has noticed swelling at the base of his neck on the right, and he states that he has seen this in the mirror but it does not bother him otherwise, that area is otherwise asymptomatic. No recent illness. Related Data Home Medications Medication Instructions Recorded Confirmed Oxygen 12/19/12 06/13/20 amlodipine 10 mg tablet 10 mg PO QAM #90 tab 08/11/19 07/18/20 insulin glargine 100 unit/mL (3 60 unit SUBCUT DAILY #4 box 08/11/19 07/18/20 mL) subcutaneous pen lisinopril 40 mg tablet 40 mg PO DAILY #90 tab 08/11/19 07/18/20 metformin 1,000 mg tablet 1,000 mg PO BID #180 tab 08/11/19 07/18/20 metoprolol tartrate 100 mg tablet 100 mg PO BID #180 tab-cap 08/11/19 07/18/20 pen needle, diabetic 32 gauge x #100 ea 08/11/19 07/18/20 rosuvastatin 10 mg tablet 10 mg PO DAILY #90 tab 11/18/19 07/18/20 furosemide 40 mg tablet 60 mg PO BID #270 tab 11/20/19 07/18/20 nitroglycerin 0.4 mg sublingual 0.4 mg SUBLINGUAL PRN #25 tab.sl 11/20/19 07/18/20 tablet blood sugar diagnostic #300 strip 12/10/19 07/18/20 lancets #204 each 12/10/19 07/18/20 albuterol sulfate 2.5 mg INHALATION Q4H PRN PRN #180 02/16/20 07/18/20 ml empagliflozin 25 mg tablet 25 mg PO DAILY #90 tab 04/14/20 07/18/20 fluticasone 250 mcg-salmeterol 50 1 inh INHALATION BID #60 each 04/14/20 07/18/20 mcg/dose blistr powdr for inhalation rivaroxaban 20 mg tablet 20 mg PO DAILY #90 tab-cap 04/14/20 07/18/20 tiotropium bromide 18 mcg capsule 18 mcg INHALATION DAILY #30 inh 04/14/20 07/18/20 with inhalation device Previous Rx's Medication Instructions Recorded amlodipine 10 mg tablet 10 mg PO QAM #90 tab 08/11/19 insulin glargine 100 unit/mL (3 60 unit SUBCUT DAILY #4 box 08/11/19 mL) subcutaneous pen lisinopril 40 mg tablet 40 mg PO DAILY #90 tab 08/11/19 metformin 1,000 mg tablet 1,000 mg PO BID #180 tab 08/11/19 metoprolol tartrate 100 mg tablet 100 mg PO BID #180 tab-cap 08/11/19 pen needle, diabetic 32 gauge x #100 ea 08/11/19 rosuvastatin 10 mg tablet 10 mg PO DAILY #90 tab 11/18/19 furosemide 40 mg tablet 60 mg PO BID #270 tab 11/20/19 nitroglycerin 0.4 mg sublingual 0.4 mg SUBLINGUAL PRN #25 tab.sl 11/20/19 tablet blood sugar diagnostic #300 strip 12/10/19 lancets #204 each 12/10/19 albuterol sulfate 2.5 mg INHALATION Q4H PRN PRN #180 02/16/20 ml empagliflozin 25 mg tablet 25 mg PO DAILY #90 tab 04/14/20 fluticasone 250 mcg-salmeterol 50 1 inh INHALATION BID #60 each 04/14/20 mcg/dose blistr powdr for inhalation rivaroxaban 20 mg tablet 20 mg PO DAILY #90 tab-cap 04/14/20 tiotropium bromide 18 mcg capsule 18 mcg INHALATION DAILY #30 inh 04/14/20 with inhalation device Allergies Allergy/AdvReac Type Severity Reaction Status Date / Time exenatide [From [place]] AdvReac Unknown Verified 07/18/20 07:34 General Stated Complaint: Orthopedic VINICIUS: 3 Review of Systems Narrative: Constitutional: denies fevers Eyes: denies eye pain ENT: denies ear pain, dental pain, sore throat Cardiovascular: denies chest pain Respiratory: denies SOB, cough GI: denies abdominal pain, vomiting, diarrhea : denies flank pain MSK: denies back pain, neck pain, myalgias, reports shoulder pain as per HPI Skin: denies rash Neuro: denies headaches, numbness, weakness PFS Medical History (Updated 07/18/20 @ 09:49 by Fabi Armendariz MD) Acute on chronic systolic CHF (congestive heart failure) CHF (congestive heart failure) systolic - EF 35-40% in 2013 Chronic atrial fibrillation (02/09/16) Chronic obstructive lung disease 2005-prolonged intubation; pneumothorax Chronic respiratory failure with hypoxia Controlled type 2 diabetes mellitus without complication, with long-term current use of insulin (03/06/18) Coronary atherosclerosis of [place] coronary vessel Dysphagia Essential hypertension (07/07/13) Hyperlipidemia Leukocytosis Nuclear senile cataract (11/03/12) Obesity JOSE treated with BiPAP Polycythemia vera Smoker Substance abuse Viral hepatitis C Treated successfully 2017 Surgical History History of intravascular stent placement Stent placement (~2004) LCX Family History Mother Essential hypertension Grandmother Neoplasm Father Diabetes Heart disease Social History Smoking/Tobacco Use Status: Former Tobacco Use Quit Date: 09/09/04 Tobacco: How many years used: 40 Smoking risk assessment performed?: Yes Alcohol Intake: current Alcohol Intake frequency: a few times a month Alcohol type: beer Drug use: Current Sobriety Substance use type: does not use Household members: none Pets and animals: Yes Pets and animals: cat(s) What type of physical activity do you participate in: none Reba/Sikhism: N/A Special reba needs: No Do you feel safe at home: Yes Do you feel safe in your relationship?: Yes Exam Narrative Exam Narrative: Constitutional: well and [id number], pleasant, conversing normally HENT: head atraumatic/normocephalic/normal inspection, mucous membranes moist Eyes: conjunctiva normal, sclera normal, pupils 3mm b/l Neck: no stridor, normal ROM, trachea midline, no appreciable asymmetry or edema at the base of the right neck reported by patient, area is nontender without mass, induration, or overlying skin changes Chest: normal inspection Resp: normal work of breathing, speaking in full sentences Cardio: normal rate, normal rhythm Back: normal inspection, no rash Skin: warm, dry, normal color, no rash Neuro: alert, not altered, grossly non-focal, normal tone Ext: no edema, right shoulder with mild anterior tenderness to palpation, no tenderness palpation over the clavicle, scapula, midshaft humerus. Radial pulses intact and symmetric. Distal sensation of the right upper extremity intact. Patient with full external and internal rotation, cannot extend laterally beyond 90 degrees secondary to pain. 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 Psych: normal mood, normal affect, normal behavior Course Vital Signs Vital signs: Vital Signs Temperature 36.6 C 07/18/20 07:27 Pulse 69 07/18/20 07:27 Respiratory Rate 20 07/18/20 07:27 Blood Pressure 148/60 H 07/18/20 07:27 Pulse Oximetry 92 07/18/20 07:27 Temperature 36.6 C 07/18/20 07:27 Temperature Source Temporal Artery Scan 07/18/20 07:27 Pulse 69 07/18/20 07:27 Respiratory Rate 20 07/18/20 07:27 Respiratory Effort 07/18/20 07:32 Blood Pressure 148/60 H 07/18/20 07:27 Blood Pressure Position Sitting 07/18/20 07:27 Pulse Oximetry 92 07/18/20 07:27 Oxygen Delivery Method Nasal Cannula 07/18/20 07:27 Oxygen Flow Rate 2 07/18/20 07:27 Pain Level 7 07/18/20 07:36
--- NOTE | 2020-07-18 08:09 | DI.RAD_ITS ---
EXAM: XR SHOULDER RT COMPLETE 2+V CLINICAL HISTORY: trauma, pain, decreased ROM TECHNIQUE: COMPARISON: CR XR HUMERUS RT from 07/18/2020 FINDINGS: Five views of the shoulder and 2 additional views of the humerus were obtained. There are moderate t o severe degenerative changes of the acromioclavicular and glenohumeral joints. There is no evidence of acute fracture or glenohumeral dislocation. No humeral fracture seen. IMPRESSION: RADIATION DOSE DELIVERED: Total DLP
== END 2020-07-18 10:32 | disposition home or self-care (01) ==
LOC: ER 10:03
PROVIDERS: Emergency Provider Student in an Organized Health Care Education/Training Program; PCP Nurse Practitioner
DX: M25.511 Pain in right shoulder (principal); W22.01XA Walked into wall, initial encounter; I10 Essential (primary) hypertension; E11.9 Type 2 diabetes mellitus without complications; Z79.4 Long term (current) use of insulin; J44.9 Chronic obstructive pulmonary disease, unspecified; Z99.81 Dependence on supplemental oxygen; Z79.01 Long term (current) use of anticoagulants; Z87.891 Personal history of nicotine dependence
CPT/HCPCS: 99284; 73030; 73060; L3650

== ENCOUNTER → 2020-08-09 12:51 | Outpatient (BNVA) | payer MEDICARE, SELFPAY | PROVIDERS: PCP Nurse Practitioner; Referring Provider Student in an Organized Health Care Education/Training Program; Visit Provider Student in an Organized Health Care Education/Training Program | DX: M25.311 Other instability, right shoulder (principal); M75.101 Unspecified rotator cuff tear or rupture of right shoulder, not specified as traumatic; E11.9 Type 2 diabetes mellitus without complications; I50.9 Heart failure, unspecified; I11.0 Hypertensive heart disease with heart failure; J44.9 Chronic obstructive pulmonary disease, unspecified; Z79.4 Long term (current) use of insulin; Z87.891 Personal history of nicotine dependence | CPT/HCPCS: 99203; 99214 ==

== ENCOUNTER → 2020-11-04 08:49 | Outpatient (BNVA) | payer MEDICARE, SELFPAY | PROVIDERS: PCP Nurse Practitioner; Referring Provider Nurse Practitioner; Visit Provider Internal Medicine Cardiovascular Disease | DX: I25.10 Atherosclerotic heart disease of native coronary artery without angina pectoris (principal) | CPT/HCPCS: 99213 ==

== ENCOUNTER 2020-12-15 01:59 | Outpatient (CLI) | payer MEDICARE, SELFPAY ==
[2020-12-15 11:23] LABS: HGB 17.4 g/dL (13.5-17.5); MCHC 31.6 % (32.0-36.0); MCV 91.5 fL (80-95); MPV 12.5 fL (8.0-11.0); Platelet Count 292 10^3/uL (130-400); RBC 6.01 10^6/uL (4.36-5.78); RDW 14.2 % (11.8-14.1); RDW-SD 47.8 fL; WBC 10.24 10^3/uL (4.4-10.8)
[2020-12-15 11:38] LABS: CREATININE 0.9 mg/dL (0.70-1.30); Calculated LDL 81 mg/dL (<100); Cholesterol 144 mg/dL (<200); HDL Cholesterol 45 mg/dL (40-60); Triglyceride 92 mg/dL (<150)
[2020-12-15 11:41] LABS: Hemoglobin A1C 6.9 % (<5.7)
== END 2020-12-15 02:00 | disposition home or self-care (01) ==
LOC: LOS 02:00
PROVIDERS: PCP Nurse Practitioner; Visit Provider Nurse Practitioner
DX: I10 Essential (primary) hypertension (principal); I25.10 Atherosclerotic heart disease of native coronary artery without angina pectoris; E11.9 Type 2 diabetes mellitus without complications; Z79.4 Long term (current) use of insulin; F10.10 Alcohol abuse, uncomplicated
CPT/HCPCS: 36415; 80061; 85027; 82565; 83036; 84132

== ENCOUNTER → 2021-05-26 12:28 | Outpatient (BNVA) | payer MEDICARE, SELFPAY | PROVIDERS: PCP Nurse Practitioner; Referring Provider Nurse Practitioner; Visit Provider Internal Medicine Cardiovascular Disease | DX: I25.10 Atherosclerotic heart disease of native coronary artery without angina pectoris (principal); I50.9 Heart failure, unspecified; G47.33 Obstructive sleep apnea (adult) (pediatric); E11.9 Type 2 diabetes mellitus without complications | CPT/HCPCS: 99214; 99213 ==

== ENCOUNTER 2021-06-05 19:40 | Observation (INO) | payer MEDICARE, SELFPAY ==
[2021-06-05] VITALS (45 sets, daily range): BP systolic 113–179; BP diastolic 59–153; PULSE 65–131; RESP 14–30; TEMP 36.5; O2SAT 84–90
--- NOTE | 2021-06-05 19:30 | RT.EKG_ITS ---
APPROVED REPORT Exam: Resting ECG Reason for Exam: chest pressure Patient Location: E HR:102 bpm ECG Measurements Heart Rate 102 AXIS OR [id number] P [id number] QRSd 122 QRS 128 QT 364 T 52 QTc 476 Conclusion Atrial fibrillation...V-rate 88-113, irreg A-activity Nonspecific intraventricular conduction delay...QRSd >115mS, not LBBB/RBBB
--- NOTE | 2021-06-05 20:15 | DI.CT_ITS ---
Exam(s) CT CHEST PE CTA EXAM: CT CHEST PE CTA CLINICAL HISTORY: chest pain. TECHNIQUE: Imaging Protocol: Axial CT angiography was performed with multi-slice acquisition and mu lti-planar and/or 3D reconstructions. CONTRAST MATERIAL: Intravenous: Omnipaque 350 Contrast volume:100 mL COMPARISON: CT CHEST FOR PULMONARY EMBOLUS from 02/19/2010 FINDINGS: The examination is limited due to patient motion artifact. This does limit evaluation of the pulmona ry arteries. Tracheobronchial tree: Patent where visualized. Pulmonary parenchyma: No consolidation or dominant measurable mass. Centrilobular emphysematous owen es are present. Dependent atelectasis. Pulmonary Arteries: No evidence of filling defect to suggest pulmonary emboli. Mediastinum and Amanda: Mildly enlarged mediastinal lymph nodes are present. The largest lymph node is in the AP window and measures 3.1 x 2.2 cm. Visualized thyroid gland: There are few small calcifications within the right lobe of the thyroid gla nd. There is a 0.6 cm hypodensity in the right lobe of the thyroid gland. No associated significant findings are seen. No follow-up is recommended. Pleura: No effusion or pneumothorax. Heart: Cardiomegaly. [id number] coronary artery calcification. No pericardial effusion. Aorta: Thoracic aorta non-dilated. Atherosclerosis. No evidence of dissection. Upper abdomen: Cholelithiasis. No biliary ductal dilatation. Soft tissues: Unremarkable. Bones: Within normal limits for the patient's age. IMPRESSION: 1. No evidence of pulmonary embolism, thoracic aortic dissection or aneurysm. 2. Mildly enlarged mediastinal lymph nodes. RADIATION DOSE DELIVERED: 713.67mGy.cm Total DLP DATA REPOSITORY: All CT scans at this facility are submitted to the National Radiology Data Registry (NRDR) Dose Index Registry (DIR) with the [employer] (A[employer]). RADIATION OPTIMIZATION: All CT scans at this facility use at least one of these dose optimization te chniques: automated exposure control; mA and/or kV adjustment per patient size (includes targeted exa ms where dose is matched to clinical indication); or iterative reconstruction.
--- NOTE | 2021-06-05 20:17 | ED.GENADUL_ITS ---
Discharge Plan Disposition Condition: Fair Discharge Details Chief Complaint: Chest Pain Admit Date/Time: 06/06/21 00:17 Admit Provider: Declan Sesay Attending Provider: Declan Sesay Primary Care Provider: Meg Maradiaga ED Provider: Juan Luis Armendariz Discharge Instructions Activity:: Activity as Tolerated Equipment/Supplies:: No Equipment Needed Diet:: resume his usual diet Discharge Orders Discharge Orders: Discharge Order (Routine); Ordered 06/06/21 Ordered By: Maycol Cook Discharge Data Discharge Date/Time-TO BE ENTERED AT DEPARTURE: 06/06/21 01:20 Medical Decision Making 2100??65-year-old male with multiple medical problems including history of coronary artery disease, chronic A. fib, on Eliquis, COPD and pulmonary hypertension, here with presyncope and chest discomfort. Lightheadedness has resolved. Chest discomfort has persisted. Patient is hypertensive, hypoxic and requiring oxygen supplementation at baseline. Consider ACS. EKG was reviewed and interpreted by me: Please see report atrial fibrillation, 102 bpm, normal axis, no STEMI. Plan to check troponin. Consider aortic dissection and pulmonary embolism. Plan to obtain CTA of the chest. 2233 --CTA of the chest was interpreted by radiology: Suboptimal pulmonary arterial bolus limiting evaluation for embolism of the more distal segmental arterial branches. No evidence for central or primary branch pulmonary embolism. Prominence of the interlobular septa suggesting pulmonary edema. Enlarged mediastinal lymph node. Cardiomegaly. Labs reviewed and initial troponin negative. Plan to admit for serial troponins and reassessment. I spoke with hospitalist who will admit. dx: chest pain dispo: admit HPI General Mode of arrival: EMS . Date/Time Provider Initiated Documentation: 06/05/21 20:02 . Limitations to Documentation: no limitations . Information obtained by: patient and EMS . HPI Narrative: 65-year-old male with multiple medical problems including a history of coronary artery disease, CHF, atrial fibrillation, currently on anticoagulant hyperlipidemia, hypertension, COPD, pulmonary hypertension chronic O2 use, former long-term smoker, obesity, here with chief complaint of dizziness. Patient notes he was working in his garage today and thinks he may have overdone it. Later in the afternoon he got up and went to the bathroom and then experienced significant dizziness after urinating. He felt like he was going to pass out. He had trouble ambulating back to his seat and was afraid he was going to lose consciousness. He sat down and experienced some retrosternal chest pain. Chest pain was moderate rated 7 out of 10. Patient notes dizziness has resolved. Chest discomfort is no longer described as a pain and has improved in intensity, now rated mild. Discomfort does not radiate. He has no new worsening shortness of breath. He denies calf pain or leg swelling. No numbness, tingling or weakness. No visual changes. Patient notes he would not of come to the emergency department tonight but was urged to do so by relative. Related Data Home Medications Medication Instructions Recorded Confirmed Oxygen 12/19/12 05/26/21 amlodipine 10 mg tablet 10 mg PO QAM #90 tab 09/15/20 06/05/21 blood sugar diagnostic #300 strip 09/15/20 05/26/21 empagliflozin 25 mg tablet 25 mg PO DAILY #90 tab 09/15/20 06/05/21 furosemide 40 mg tablet 60 mg PO BID #270 tab 09/15/20 06/05/21 insulin glargine 100 unit/mL (3 60 unit SUBCUT DAILY #4 box 09/15/20 06/05/21 mL) subcutaneous pen lancets #204 each 09/15/20 05/26/21 lisinopril 40 mg tablet 40 mg PO DAILY #90 tab 09/15/20 06/05/21 metformin 1,000 mg tablet 1,000 mg PO BID #180 tab 09/15/20 06/05/21 metoprolol tartrate 100 mg tablet 100 mg PO BID #180 tab-cap 09/15/20 06/05/21 nitroglycerin 0.4 mg sublingual 0.4 mg SUBLINGUAL PRN #25 tab.sl 09/15/20 06/05/21 tablet pen needle, diabetic 32 gauge x #100 ea 09/15/20 05/26/21/32 rivaroxaban 20 mg tablet 20 mg PO DAILY #90 tab-cap 09/15/20 06/05/21 rosuvastatin 10 mg tablet 10 mg PO DAILY #90 tab 09/15/20 06/05/21 tiotropium bromide 18 mcg capsule 18 mcg INHALATION DAILY #30 inh 09/15/20 06/05/21 with inhalation device fluticasone 250 mcg-salmeterol 50 1 inh INHALATION BID #180 ea 09/16/20 06/05/21 mcg/dose blistr powdr for inhalation albuterol sulfate 2.5 mg INHALATION Q4H PRN PRN #180 09/20/20 06/05/21 ml Previous Rx's Medication Instructions Recorded amlodipine 10 mg tablet 10 mg PO QAM #90 tab 09/15/20 blood sugar diagnostic #300 strip 09/15/20 empagliflozin 25 mg tablet 25 mg PO DAILY #90 tab 09/15/20 furosemide 40 mg tablet 60 mg PO BID #270 tab 09/15/20 insulin glargine 100 unit/mL (3 60 unit SUBCUT DAILY #4 box 09/15/20 mL) subcutaneous pen lancets #204 each 09/15/20 lisinopril 40 mg tablet 40 mg PO DAILY #90 tab 09/15/20 metformin 1,000 mg tablet 1,000 mg PO BID #180 tab 09/15/20 metoprolol tartrate 100 mg tablet 100 mg PO BID #180 tab-cap 09/15/20 nitroglycerin 0.4 mg sublingual 0.4 mg SUBLINGUAL PRN #25 tab.sl 09/15/20 tablet pen needle, diabetic 32 gauge x #100 ea 09/15/20 rivaroxaban 20 mg tablet 20 mg PO DAILY #90 tab-cap 09/15/20 rosuvastatin 10 mg tablet 10 mg PO DAILY #90 tab 09/15/20 tiotropium bromide 18 mcg capsule 18 mcg INHALATION DAILY #30 inh 09/15/20 with inhalation device fluticasone 250 mcg-salmeterol 50 1 inh INHALATION BID #180 ea 09/16/20 mcg/dose blistr powdr for inhalation albuterol sulfate 2.5 mg INHALATION Q4H PRN PRN #180 09/20/20 ml Allergies Allergy/AdvReac Type Severity Reaction Status Date / Time No Known Allergies Allergy Verified 06/05/21 19:45 General Stated Complaint: Chest Pain VINICIUS: 2 Review of Systems All systems reviewed & are unremarkable except as noted in HPI and below Constitutional Constitutional: Denies fever(s) Cardiovascular Cardiovascular: Reports as per HPI and Denies dyspnea Respiratory Respiratory: Denies dyspnea Neurologic Neurologic: Reports as per HPI [facility] Medical History Acute on chronic systolic CHF (congestive heart failure) CHF (congestive heart failure) systolic - EF 35-40% in 2013 Chronic atrial fibrillation (02/09/16) Xarelto Chronic obstructive lung disease 2005-prolonged intubation; pneumothorax Chronic respiratory failure with hypoxia Controlled type 2 diabetes mellitus without complication, with long-term current use of insulin (03/06/18) Coronary atherosclerosis of [place] coronary vessel stent 2005 Dysphagia 2019-- Barium swallow wnl Essential hypertension (07/07/13) Hyperlipidemia Leukocytosis Nuclear senile cataract (11/03/12) Obesity JOSE treated with BiPAP Polycythemia vera Right rotator cuff tear 2020- declines surgery Smoker Quit 2004 Substance abuse meth & cocaine- quit 2004 Viral hepatitis C Treated successfully 2017 Surgical History History of intravascular stent placement 2004- one stent, ? [place] Stent placement (~2004) LCX Family History Mother Essential hypertension Grandmother Neoplasm Father Diabetes Heart disease Social History Smoking/Tobacco Use Status: Former Tobacco Use Quit Date: 09/09/04 Tobacco: How many years used: 40 Smoking risk assessment performed?: Yes Alcohol Intake: current Alcohol Intake frequency: a few times a month Alcohol type: beer Drug use: Current Sobriety Substance use type: does not use Household members: none Pets and animals: Yes Pets and animals: cat(s) Current gender identity: male What type of physical activity do you participate in: none Reba/Muslim: N/A Special reba needs: No Do you feel safe at home: Yes Do you feel safe in your relationship?: Yes Exam Const General: cooperative and no acute distress [facility] Head: normocephalic and atraumatic Mouth: moist mucous membranes Eyes Conjunctivae: normal conjunctivae Sclera: normal sclerae Neck Neck: trachea midline and supple Resp Effort & Inspection: able to speak in complete sentences, no cough, not labored, no respiratory distress, no retractions, no stridor and not tachypneic Auscultation: no rales, no rhonchi and wheezes (mild) expiratory wheezes Cardio Rate: regular rate and not tachycardic Rhythm: abnormal rhythm irregularly irregular GI Palpation: soft, not firm, no guarding, no masses, not rigid and nontender Skin General skin exam: no rashes or lesions noted Neuro General: patient alert, patient awake, patient oriented x3 and tone normal Extrem General: no calf tenderness and no edema Psych Appearance: grossly normal Mental Status: mental status grossly normal Course Vital Signs Vital signs: Vital Signs Temperature 36.5 C 06/05/21 19:40 Pulse 107 H 06/05/21 19:40 Respiratory Rate 22 06/05/21 19:40 Blood Pressure 169/83 H 06/05/21 19:40 Pulse Oximetry 89 L 06/05/21 19:40 Temperature 36.5 C 06/05/21 19:40 Temperature Source Oral 06/05/21 19:40 Pulse 80 06/05/21 20:01 Pulse 107 H 06/05/21 20:01 Respiratory Rate 21 06/05/21 20:01 Respiratory Effort Non-Labored 06/05/21 19:48 Blood Pressure 153/83 H 06/05/21 20:01 Blood Pressure Mean 99 06/05/21 20:01 Blood Pressure Position Supine 06/05/21 19:40 Pulse Oximetry 87 L 06/05/21 20:01 Oxygen Delivery Method Nasal Cannula 06/05/21 19:40 Oxygen Flow Rate 2 06/05/21 19:40 Pain Level 6 06/05/21 19:40
--- NOTE | 2021-06-05 20:34 | NUR.NOTE ---
Patient reports he checks SpO2 at home, usually 88% with 2-3L oxygen per nasal cannula.Nursing Note:
[2021-06-05 20:36] LABS: Source Nasal/Nares
[2021-06-05 20:39] LABS: Abs Immature Grans 0.04 10^3/uL (0.0-0.06); Absolute Basophil Count 0.11 10^3/uL (0.0-0.2); Absolute Eosinophil Count 0.34 10^3/uL (0.0-0.7); Absolute Lymphocyte Count 1.92 10^3/uL (1.2-3.4); Absolute Monocyte Count 1.29 10^3/uL (0.1-0.8); HCT 55.9 % (40.0-50.0); HGB 17.9 g/dL (13.5-17.5); Immature Grans % 0.4; MCH 28.9 pg (27.0-33.0); MCV 90.3 fL (80-95); MPV 11.6 fL (8.0-11.0); Monocytes % 11.4; Neutrophils % 67.2; Nucleated RBC 0 %; Platelet Count 190 10^3/uL (130-400); RDW 15.5 % (11.8-14.1); RDW-SD 49.5 fL; WBC 11.32 10^3/uL (4.4-10.8)
[2021-06-05 20:43] LABS: Absolute Neutrophil Count 7.61 10^3/uL (1.2-6.7)
[2021-06-05 20:44] LABS: RBC 6.19 10^6/uL (4.36-5.78)
[2021-06-05 20:55] LABS: ALT 24 U/L (16-63); AST 21 U/L (15-37); Albumin 4.1 g/dL (3.4-5.0); Alkaline Phosphatase 109 U/L (46-116); BUN 14 mg/dL (7-18); Bilirubin, Total 0.5 mg/dL (0.2-1.0); CREATININE 0.9 mg/dL (0.70-1.30); Calcium 9.2 mg/dL (8.5-10.1); Chloride 103 mmol/L (98-107); Glucose 197 mg/dL (74-106); Potassium 3.5 mmol/L (3.5-5.1); Sodium 142 mmol/L (136-145); Total Protein 8.4 g/dL (6.4-8.2)
[2021-06-05 21:23] LABS: Troponin I < 0.05 ng/mL (<0.06)
[2021-06-05] MEDS: Omnipaque 350 MG/ML 100 ML BTL IJ (21:46)
--- NOTE | 2021-06-05 21:46 | NUR.NOTE ---
Returns from DINursing Note:
--- NOTE | 2021-06-05 21:57 | NUR.NOTE ---
Call to patient daughter in law, Alexa for patient update. [phone] Note:
--- NOTE | 2021-06-05 22:31 | DI.VRAD_ITS ---
PROCEDURE INFORMATION: Exam: CTA Chest With Contrast Exam date and time: 06/05/2021 8:22 PM Age: 65 years old Clinical indication: Other: Chest pain TECHNIQUE: Imaging protocol: Computed tomographic angiography of the chest with contrast. 3D rendering (Not supervised by radiologist): MIP and/or 3D reconstructed images were created by the technologist. Radiation optimization: All CT scans at this facility use at least one of these dose optimization techniques: automated exposure control; mA and/or kV adjustment per patient size (includes targeted exams where dose is matched to clinical indication); or iterative reconstruction. Contrast material: OMNI 350; Contrast volume: 100 ml; Contrast route: INTRAVENOUS (IV); COMPARISON: CR XR PORTABLE CHEST AP 11/09/2019 5:18 PM FINDINGS: Pulmonary arteries: There is a suboptimal pulmonary arterial bolus limiting evaluation for embolism of the more distal segmental arterial branches. No evidence for central or primary branch pulmonary embolism. Aorta: Unremarkable. No aortic aneurysm. No aortic dissection. Lungs: There is prominence of the interlobular septa suggesting pulmonary edema. No consolidation. No masses. Pleural spaces: Unremarkable. No pneumothorax. No pleural effusion. Heart: There is cardiomegaly. No pericardial effusion. Lymph nodes: There is enlarged pretracheal mediastinal lymph node measuring 14 mm. There are nonenlarged prevascular mediastinal lymph nodes. Gallbladder and bile ducts: A calcified gallstone is present. Bones/joints: Unremarkable. No acute fracture. Soft tissues: Unremarkable. IMPRESSION: 1. Suboptimal pulmonary arterial bolus limiting evaluation for embolism of the more distal segmental arterial branches. No evidence for central or primary branch pulmonary embolism. 2. Prominence of the interlobular septa suggesting pulmonary edema. 3. Enlarged mediastinal lymph node. 4. Cardiomegaly. Dictated and Authenticated by: Declan Lino MD. Ordering:DAVONTE Mcknight MD
--- NOTE | 2021-06-05 22:45 | NUR.NOTE ---
Per lab, covid result ETA 2 hoursNursing Note:
[2021-06-05 23:32] LABS: Troponin I < 0.05 ng/mL (<0.06)
--- NOTE | 2021-06-05 23:59 | HPE_ITS ---
Date of service: 06/05/21 Time of Service: 23:59 Assessment and Plan Assessment and plan (1) Chest pain: Status: Acute Assessment and plan: Spell began with what nominally would have been understood as micturition (pre) syncope, though the vertiginous-like component would be atypical. This though has resolved and the CP then commands attention. Higher risk for ACS certainly, though neg trop x 2 and minimal EKG findings are reassuring to a degree. Would complete trop series and, if negative, consider stress test. The AF would be better controlled, but he has not yet had his PM meds so the beta arnav will help. Will continue usual meds as is for COPD and DM. Sats in high 80s-low 90s appears to be his baseline, will not push beyond this range as he is likely a retainer. Reviewed ADs, requests DNR. History of Present Illness History of Present Illness Chief Complaint: CP Narrative: 65 male with h/o CAD, COPD, CHF, DM -- this evening had episode of lightheadeness after micturition, then became more frankly vertiginous, and simultaneously developed substernal chest tightness, all lasting perhaps 2 hours on and off. No radiation, no change in bseline SOB, no nausea or diaphoresis. Here in ER w/u of note for neg trop x 2; neg chest CTA and EKG showing baseline AF with minimal upsloping ST depressions in leads V3-6 (? rate related). I was asked to evaluate for admission. At present patient states he feels his usual self and would have preferred to go home, but is agreeable to staying. Better safe than sorry. Review of Systems All systems reviewed & are unremarkable except as noted in HPI and below PFSH Medical History Acute on chronic systolic CHF (congestive heart failure) CHF (congestive heart failure) systolic - EF 35-40% in 2013 Chronic atrial fibrillation (02/09/16) Xarelto Chronic obstructive lung disease 2005-prolonged intubation; pneumothorax Chronic respiratory failure with hypoxia Controlled type 2 diabetes mellitus without complication, with long-term current use of insulin (03/06/18) Coronary atherosclerosis of [place] coronary vessel stent 2005 Dysphagia 2019-- Barium swallow wnl Essential hypertension (07/07/13) Hyperlipidemia Leukocytosis Nuclear senile cataract (11/03/12) Obesity JOSE treated with BiPAP Polycythemia vera Right rotator cuff tear 2020- surgery Smoker Quit 2004 Substance abuse meth & cocaine- quit 2004 Viral hepatitis C Treated successfully 2018 Surgical History History of intravascular stent placement 2005- one stent, ? [place] Stent placement (~2004) LCX Family History Mother Essential hypertension Grandmother Neoplasm Father Diabetes Heart disease Social History Smoking/Tobacco Use Status: Former Tobacco Use Quit Date: 09/09/04 Tobacco: How many years used: 40 Smoking risk assessment performed?: Yes Alcohol Intake: current Alcohol Intake frequency: a few times a month Alcohol type: beer Drug use: Current Sobriety Substance use type: does not use Household members: none Pets and animals: Yes Pets and animals: cat(s) Current gender identity: male What type of physical activity do you participate in: none Reba/Samaritan: N/A Special reba needs: No Do you feel safe at home: Yes Do you feel safe in your relationship?: Yes Meds Allergies and Home Medications Allergies Allergy/AdvReac Type Severity Reaction Status Date / Time No Known Allergies Allergy Verified 06/05/21 19:45 Home Medications Medication Instructions Recorded Confirmed Type Oxygen 12/19/12 05/26/21 History One Touch Basic System 1 ea MISCELLANEOUS TID #1 kit 03/26/13 11/09/19 Clinic amlodipine 10 mg tablet 10 mg PO QAM #90 tab 09/15/20 06/05/21 Rx blood sugar diagnostic #300 strip 09/15/20 05/26/21 Rx empagliflozin 25 mg tablet 25 mg PO DAILY #90 tab 09/15/20 06/05/21 Rx furosemide 40 mg tablet 60 mg PO BID #270 tab 09/15/20 06/05/21 Rx insulin glargine 100 unit/mL (3 60 unit SUBCUT DAILY #4 box 09/15/20 06/05/21 Rx mL) subcutaneous pen lancets #204 each 09/15/20 05/26/21 Rx lisinopril 40 mg tablet 40 mg PO DAILY #90 tab 09/15/20 06/05/21 Rx metformin 1,000 mg tablet 1,000 mg PO BID #180 tab 09/15/20 06/05/21 Rx metoprolol tartrate 100 mg tablet 100 mg PO BID #180 tab-cap 09/15/20 06/05/21 Rx nitroglycerin 0.4 mg sublingual 0.4 mg SUBLINGUAL PRN #25 tab.sl 09/15/20 06/05/21 Rx tablet pen needle, diabetic 32 gauge x #100 ea 09/15/20 05/26/21 Rx 32 rivaroxaban 20 mg tablet 20 mg PO DAILY #90 tab-cap 09/15/20 06/05/21 Rx rosuvastatin 10 mg tablet 10 mg PO DAILY #90 tab 09/15/20 06/05/21 Rx tiotropium bromide 18 mcg capsule 18 mcg INHALATION DAILY #30 inh 09/15/20 06/05/21 Rx with inhalation device fluticasone 250 mcg-salmeterol 50 1 inh INHALATION BID #180 ea 09/16/20 06/05/21 Rx mcg/dose blistr powdr for inhalation albuterol sulfate 2.5 mg INHALATION Q4H PRN PRN #180 09/20/20 06/05/21 Rx ml Exam Narrative Exam Narrative: 156/92, 107, 36.5, 20-29, 88% 2.5L NC. HEENT atraumatic; neck supple; lungs diminidhed, more so on left; heart distant, irr/irr; abdomen soft and NT; extremities w/o edema, pulse 2+/=; neuro Ox3, PERRL, EOMI, no nystagmus, no facial asymmetry, moves all 4s Results Labs Result diagrams: 06/05/21 20:00 06/05/21 20:00 Labs: Laboratory Results - last 24 hr 06/05/21 06/05/21 06/05/21 20:00 20:00 20:25 WBC 11.32 H RBC 6.19 H Hgb 17.9 H Hct 55.9 H MCV 90.3 MCH 28.9 MCHC 32.0 RDW 15.5 H Plt Count 190 MPV 11.6 H Immature Gran % 0.4 Neutrophils % 67.2 Lymphocytes % 17.0 Monocytes % 11.4 Eosinophils % 3.0 Basophils % 1.0 Nucleated RBC % 0 Absolute Neutrophils 7.61 H Absolute Lymphocytes 1.92 Absolute Monocytes 1.29 H Absolute Eosinophils 0.34 Absolute Basophils 0.11 Sodium 142 Potassium 3.5 Chloride 103 Carbon Dioxide 30.0 Anion Gap 9.0 BUN 14 Creatinine 0.9 Estimated GFR/1.73 m2 >= 60.00 Glucose 197 H Calcium 9.2 Total Bilirubin 0.5 AST 21 ALT 24 Alkaline Phosphatase 109 Troponin I < 0.05 Total Protein 8.4 H Albumin 4.1 COVID-19 Source Nasal/Nares 06/05/21 23:05 WBC RBC Hgb Hct MCV MCH MCHC RDW Plt Count MPV Immature Gran % Neutrophils % Lymphocytes % Monocytes % Eosinophils % Basophils % Nucleated RBC % Absolute Neutrophils Absolute Lymphocytes Absolute Monocytes Absolute Eosinophils Absolute Basophils Sodium Potassium Chloride Carbon Dioxide Anion Gap BUN Creatinine Estimated GFR/1.73 m2 Glucose Calcium Total Bilirubin AST ALT Alkaline Phosphatase Troponin I < 0.05 Total Protein Albumin COVID-19 Source Last Vital Signs Temp 36.5 C 06/05/21 19:40 Pulse 65 06/05/21 23:16 Resp 29 H 06/05/21 23:20 BP 156/92 H 06/05/21 23:16 Pulse Ox 88 L 06/05/21 23:02
[2021-06-06] VITALS (17 sets, daily range): BP systolic 122–169; BP diastolic 67–93; PULSE 61–123; RESP 17–25; TEMP 34.3–36.6; O2SAT 87–92
[2021-06-06] MEDS: Metoprolol CR 100 MG TABCR PO (00:24)
--- NOTE | 2021-06-06 00:36 | NUR.NOTE ---
Patient repositions to wheelchair for comfort. Reports he is more comfortable sitting upright.Nursing Note:
[2021-06-06 00:55] LABS: COVID-19 PCR Negative (Negative)
[2021-06-06 07:22] LABS: Troponin I < 0.05 ng/mL (<0.06)
[2021-06-06] MEDS: Lisinopril 20 MG TAB 40 MG PO (07:54)
[2021-06-06] MEDS: Metoprolol 50 MG TAB 100 MG PO (07:54)
[2021-06-06] MEDS: metFORMIN 500 MG TAB 1000 MG PO (07:55)
[2021-06-06] MEDS: amLODIPine 10 MG TAB PO (07:55)
[2021-06-06] MEDS: Furosemide 40 MG TAB 60 MG PO (07:55)
[2021-06-06] MEDS: Insulin Aspart 300 UNITS/3 ML PEN SC (08:18)
[2021-06-06] MEDS: Insulin Glargine 300 UNITS/3 ML PEN 60 UNITS SC (08:19)
[2021-06-06] MEDS: Tiotropium Bromide-Respimat 10 PUFF INH 2 PUFF IH (09:57)
--- NOTE | 2021-06-06 10:26 | DSE_ITS ---
Date of service: 06/06/21 Time of Service: 10:27 DS: Diagnosis Discharge Diagnosis (1) Chest pain: Status: Acute Discharge Plan Disposition Patient Disposition: HOME Condition: Fair Discharge Details Reason For Visit: CP Admit Date/Time: 06/06/21 00:17 Admit Provider: Declan Sesay Attending Provider: Declan Sesay [facility] Hospital Course: This is a 65 male with h/o CAD, COPD, CHF, DM -- this evening had episode of lightheadeness after micturition, then became more frankly vertiginous, and simultaneously developed substernal chest tightness, all lasting perhaps 2 hours on and off. No radiation, no change in baseline SOB, no nausea or diaphoresis. Here in ER w/u of note for neg trop x 3; neg chest CTA and EKG showing baseline AF with minimal upsloping ST depressions in leads V3-6 (? rate related). He questions whether his symptoms were possibly related to the onions he ate; acid reflux. 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 He has baseline CUEVAS and feels he is at baseline. He had no further chest pain/pressure. No pre-syncopal or vertiginous symptoms. He will d/c to home; scheduled for a NM stress test as an outpt. Follow up with PCP in 1-2 weeks. Home Meds and New Rx's Prescriptions: Continued amlodipine [Norvasc] 10 mg tablet 10 mg PO QAM Qty: 90 RF: 4 Jardiance 25 mg tablet 25 mg PO DAILY Qty: 90 RF: 4 furosemide [Lasix] 40 mg tablet 60 mg PO BID Qty: 270 RF: 4 Lantus Solostar U-100 Insulin 100 unit/mL (3 mL) insulin pen 60 unit subcut DAILY Qty: 4 RF: 5 lisinopril 40 mg tablet 40 mg PO DAILY Qty: 90 RF: 4 metformin [Glucophage] 1,000 mg tablet 1,000 mg PO BID Qty: 180 RF: 4 metoprolol tartrate 100 mg tablet 100 mg PO BID Qty: 180 RF: 4 (DME) pen needle, diabetic [BD Ultra-Fine Kenisha Pen Needle] 32 gauge x 5/32 needle 1 ea Miscellaneous DAILY Qty: 100 RF: 4 rosuvastatin 10 mg tablet 10 mg PO DAILY Qty: 90 RF: 4 nitroglycerin [Nitrostat] 0.4 mg tablet, sublingual 0.4 mg Sublingual PRN Qty: 25 RF: 1 Xarelto 20 mg tablet 20 mg PO DAILY Qty: 90 RF: 3 OXYGEN RF: 0 ONE TOUCH BASIC SYSTEM 1 EACH kit 1 ea Miscellaneous TID Qty: 1 RF: 0 (DME) blood sugar diagnostic Strip 1 ea Miscellaneous QID Qty: 300 RF: 5 (DME) lancets [OneTouch UltraSoft Lancets] Misc 1 ea Miscellaneous TID Qty: 204 RF: 4 Spiriva with HandiHaler 18 mcg capsule, w/inhalation device 18 mcg Inhalation DAILY Qty: 30 RF: 4 fluticasone propion-salmeterol [Advair Diskus] 250-50 mcg/dose blister with device 1 inh Inhalation BID Qty: 180 RF: 4 albuterol sulfate 2.5 mg /3 mL (0.083 %) solution for nebulization 2.5 mg Inhalation Q4H PRN PRN (Reason: shortness of breath or wheezing) Qty: 180 RF: 4 Discharge Instructions Instructions: Chest Pain (DC) Activity:: Activity as Tolerated Equipment/Supplies:: No Equipment Needed Diet:: resume his usual diet Discharge Orders Discharge Orders: Discharge Order (Routine); Ordered 06/06/21 Ordered By: Maycol Cook Other Ambulatory Orders: NM MPI rest & stress grp (Routine) Location: None Selected Ordered By: Maycol Cook DS: Summary Time Spent with Patient providing and/or coordinating discharge services: Greater than 30 minutes Status at Discharge Functional status at discharge: independent ambulation Overall status at discharge: patient is back to baseline Mental Status: mental status grossly normal Speech and Movement: speech and movement normal Mood: congruent mood Affect: normal affect Exam Narrative Exam Narrative: 156/92, 107, 36.5, 20-29, 88% 2.5L NC. HEENT atraumatic; neck s upple; lungs diminidhed, more so on left; heart distant, irr/irr; abdomen soft and NT; extremities w/o edema, pulse 2+/=; neuro Ox3, PERRL, EOMI, no nystagmus, no facial asymmetry, moves all 4s Const General: cooperative and no acute distress Nutritional Appearance: obese Orientation: alert and oriented x3 HENMT Head: normocephalic and atraumatic Resp Effort & Inspection: normal respiratory effort Auscultation: clear to auscultation bilaterally Cardio Rate: regular rate Rhythm: abnormal rhythm irregularly irregular GI Palpation: soft and nontender Extrem General: no pedal edema and no calf tenderness Psych Mental Status: mental status grossly normal Speech and Movement: speech and movement normal Mood: congruent mood Affect: normal affect DS: Data Vitals/I&O Vitals and I&O: Vital Signs Temperature 36.5 C 06/06/21 07:30 Temperature Source Tympanic 06/06/21 07:30 Pulse 61 06/06/21 07:30 Pulse Rhythm Irregular 06/06/21 09:02 Pulse 99 H 06/06/21 01:10 Respiratory Rate 18 06/06/21 07:30 Respiratory Effort Non-Labored 06/06/21 09:02 Respiratory Depth Normal 06/06/21 09:02 Respiratory Pattern Normal 06/06/21 09:02 Blood Pressure 133/77 06/06/21 07:30 Blood Pressure Mean 86 06/06/21 01:01 Blood Pressure Position Supine 06/05/21 19:40 Pulse Oximetry 92 06/06/21 07:30 Oxygen Delivery Method Nasal Cannula 06/06/21 07:30 Oxygen Flow Rate 2 06/06/21 07:30 Pain Level 0 06/06/21 07:30 Intake & Output 06/05/21 06/05/21 06/06/21 11:59 23:59 11:59 Output Total 250 / 250 2225 / 2225 Balance -250 / -250 -2225 / -2225 Weight 119.2 kg 119.2 kg Output: Urine 250 / 250 2225 / 2225 Other: Urine Color Yellow Urine Appearance Clear Urine Odor None Voiding Methods Urinal Data Completed and Pending Labs on day of discharge: Labs from last 24 hours 06/06/21 06/05/21 06/05/21 06:51 23:05 20:25 WBC RBC Hgb Hct MCV MCH MCHC RDW Plt Count MPV Immature Gran % Neutrophils % Lymphocytes % Monocytes % Eosinophils % Basophils % Nucleated RBC % Absolute Neutrophils Absolute Lymphocytes Absolute Monocytes Absolute Eosinophils Absolute Basophils Sodium Potassium Chloride Carbon Dioxide Anion Gap BUN Creatinine Estimated GFR/1.73 m2 Glucose Calcium Total Bilirubin AST ALT Alkaline Phosphatase Troponin I < 0.05 < 0.05 Total Protein Albumin COVID-19 Source Nasal/Nares SARS-CoV-2 (PCR) Negative 06/05/21 06/05/21 20:00 20:00 WBC 11.32 H RBC 6.19 H Hgb 17.9 H Hct 55.9 H MCV 90.3 MCH 28.9 MCHC 32.0 RDW 15.5 H Plt Count 190 MPV 11.6 H Immature Gran % 0.4 Neutrophils % 67.2 Lymphocytes % 17.0 Monocytes % 11.4 Eosinophils % 3.0 Basophils % 1.0 Nucleated RBC % 0 Absolute Neutrophils 7.61 H Absolute Lymphocytes 1.92 Absolute Monocytes 1.29 H Absolute Eosinophils 0.34 Absolute Basophils 0.11 Sodium 142 Potassium 3.5 Chloride 103 Carbon Dioxide 30.0 Anion Gap 9.0 BUN 14 Creatinine 0.9 Estimated GFR/1.73 m2 >= 60.00 Glucose 197 H Calcium 9.2 Total Bilirubin 0.5 AST 21 ALT 24 Alkaline Phosphatase 109 Troponin I < 0.05 Total Protein 8.4 H Albumin 4.1 COVID-19 Source SARS-CoV-2 (PCR) COUNT INCLUDES THE [facility] Medical History Acute on chronic systolic CHF (congestive heart failure) CHF (congestive heart failure) systolic - EF 35-40% in 2013 Chronic atrial fibrillation (02/09/16) Xarelto Chronic obstructive lung disease 2004-prolonged intubation; pneumothorax Chronic respiratory failure with hypoxia Controlled type 2 diabetes mellitus without complication, with long-term current use of insulin (03/06/18) Coronary atherosclerosis of [place] coronary vessel stent 2004 Dysphagia 2018-- Barium swallow wnl Essential hypertension (07/07/13) Hyperlipidemia Leukocytosis Nuclear senile cataract (11/03/12) Obesity JOSE treated with BiPAP Polycythemia vera Right rotator cuff tear 2020- declines surgery Smoker Quit 2004 Substance abuse meth & cocaine- quit 2004 Viral hepatitis C Treated successfully 2018 Surgical History History of intravascular stent placement 2005- one stent, ? [place] Stent placement (~2004) LCX Family History Mother Essential hypertension Grandmother Neoplasm Father Diabetes Heart disease Social History Smoking/Tobacco Use Status: Former Tobacco Use Quit Date: 09/09/04 Tobacco: How many years used: 40 Smoking risk assessment performed?: Yes Alcohol Intake: current Alcohol Intake frequency: a few times a month Alcohol type: beer Drug use: Current Sobriety Substance use type: does not use Household members: none Pets and animals: Yes Pets and animals: cat(s) Current gender identity: male What type of physical activity do you participate in: none Reba/Sabianism: N/A Special reba needs: No Do you feel safe at home: Yes Do you feel safe in your relationship?: Yes
== END 2021-06-06 12:30 | disposition home or self-care (01) ==
LOC: ER 06-06 00:26 → MS 06-06 01:24
PROVIDERS: Admitting Provider General Practice; Emergency Provider Student in an Organized Health Care Education/Training Program; PCP Nurse Practitioner; Visit Provider General Practice
DX: R07.89 Other chest pain (principal); R94.31 Abnormal electrocardiogram [ECG] [EKG]; J44.9 Chronic obstructive pulmonary disease, unspecified; I25.10 Atherosclerotic heart disease of native coronary artery without angina pectoris; E11.9 Type 2 diabetes mellitus without complications; I50.22 Chronic systolic (congestive) heart failure; Z79.01 Long term (current) use of anticoagulants; I48.20 Chronic atrial fibrillation, unspecified; J96.11 Chronic respiratory failure with hypoxia; G47.33 Obstructive sleep apnea (adult) (pediatric); I11.0 Hypertensive heart disease with heart failure; E78.5 Hyperlipidemia, unspecified; Z20.822 Contact with and (suspected) exposure to COVID-19; R42 Dizziness and giddiness; Z99.81 Dependence on supplemental oxygen; I27.20 Pulmonary hypertension, unspecified
CPT/HCPCS: 36415; 71275; 80053; 87635; 93005; 99285; 84484; 85025; 93010; 99217; 99219; G0378; J3490

== ENCOUNTER 2021-07-26 14:00 | Outpatient (REF) | payer MEDICARE, SELFPAY ==
[2021-07-27 18:09] LABS: COVID-19 RT-PCR UVMMC Result Negative (Negative)
== END 2021-07-26 14:01 | disposition home or self-care (01) ==
LOC: LBN 14:00
PROVIDERS: PCP Nurse Practitioner; Visit Provider Nurse Practitioner Family
DX: Z20.822 Contact with and (suspected) exposure to COVID-19 (principal)
CPT/HCPCS: U0003; U0005

== ENCOUNTER → 2021-11-23 12:42 | Outpatient (BNVA) | payer MEDICARE, SELFPAY | PROVIDERS: PCP Nurse Practitioner; Visit Provider Internal Medicine Cardiovascular Disease | DX: I10 Essential (primary) hypertension (principal); I25.10 Atherosclerotic heart disease of native coronary artery without angina pectoris; J96.11 Chronic respiratory failure with hypoxia; Z99.81 Dependence on supplemental oxygen | CPT/HCPCS: 99214; 99213 ==

== ENCOUNTER 2022-05-01 02:35 | Outpatient (RCR) | payer MEDICARE, SELFPAY ==
[2022-04-17 07:57] LABS: HGB 18.4 g/dL (13.5-17.5); MCH 28.3 pg (27.0-33.0); MCHC 31.7 % (32.0-36.0); MCV 89 fL (80-95); MPV 10.7 fL (8.0-11.0); Platelet Count 290 10^3/uL (130-400); RDW-SD 47.4 fL; WBC 10.26 10^3/uL (4.4-10.8)
[2022-04-17 08:14] LABS: Anion Gap 10.1 mmol/L (3-11); BUN 11 mg/dL (7-18); CO2 26.9 mmol/L (21.0-32.0); CREATININE 0.8 mg/dL (0.70-1.30); Calcium 8.8 mg/dL (8.5-10.1); Calculated LDL 63 mg/dL (<100); Chloride 102 mmol/L (98-107); Cholesterol 123 mg/dL (<200); Glucose 101 mg/dL (74-106); HDL Cholesterol 40 mg/dL (40-60); Potassium 3.9 mmol/L (3.5-5.1); Sodium 139 mmol/L (136-145); Triglyceride 100 mg/dL (<150)
[2022-05-01 07:31] LABS: HCT 54.5 % (40.0-50.0); HGB 17.3 g/dL (13.5-17.5)
[2022-05-01] MEDS: Normal Saline Flush 10 ML SYR IVP (07:54)
== END 2022-05-09 23:59 | disposition home or self-care (01) ==
LOC: INF 02:35
PROVIDERS: PCP Nurse Practitioner; Visit Provider Nurse Practitioner
DX: E83.118 Other hemochromatosis (principal); E11.9 Type 2 diabetes mellitus without complications; D45 Polycythemia vera
CPT/HCPCS: 36415; 80048; 80061; 85027; 99195; 85014; 85018

== ENCOUNTER 2022-05-29 01:16 | Outpatient (RCR) | payer MEDICARE, SELFPAY ==
[2022-05-15 07:28] LABS: HCT 51.2 % (40.0-50.0); HGB 16.6 g/dL (13.5-17.5)
[2022-05-29 07:04] LABS: HCT 49.8 % (40.0-50.0); HGB 15.6 g/dL (13.5-17.5)
== END 2022-06-08 23:59 | disposition home or self-care (01) ==
LOC: INF 01:16
PROVIDERS: PCP Nurse Practitioner Family; Visit Provider Nurse Practitioner
DX: D45 Polycythemia vera (principal)
CPT/HCPCS: 36415; 99195; 85014; 85018

== ENCOUNTER → 2022-06-27 12:56 | Outpatient (CLI) | payer MEDICARE, SELFPAY ==
--- NOTE | 2022-06-27 10:00 | DI.RAD_ITS ---
Exam(s) XR CHEST 2V PA LATERAL EXAM: XR CHEST 2V PA LATERAL CLINICAL HISTORY: Shortness of Breath, Productive Cough--R05.8. TECHNIQUE: 2D digital imaging was performed. COMPARISON: CR,XR XR PORTABLE CHEST AP from 11/09/[address] CHEST PE CTA from 06/05/2021 FINDINGS: 2 views: Cardiomegaly again noted. The mediastinum is not widened. Increased bilateral interstitial markings throughout both lung zhang again noted, similar to November 08. No distinct Jeni B lines evident. No pleural effusions. IMPRESSION: Pulmonary vascular congestion pattern again noted. No pleural effusions. Cardiomegaly. DATA REPOSITORY: RADIATION DOSE DELIVERED:
== END ==
PROVIDERS: PCP Nurse Practitioner Family; Visit Provider Physician Assistant Medical
DX: R05.8 Other specified cough (principal); R06.02 Shortness of breath; I51.7 Cardiomegaly; J84.89 Other specified interstitial pulmonary diseases
CPT/HCPCS: 71046

== ENCOUNTER 2022-07-06 01:28 | Outpatient (CLI) | payer MEDICARE, SELFPAY ==
[2022-07-06 12:55] LABS: HCT 45.5 % (40.0-50.0); HGB 13.8 g/dL (13.5-17.5)
== END 2022-07-06 01:29 | disposition home or self-care (01) ==
LOC: LOS 01:28
PROVIDERS: PCP Nurse Practitioner Family; Visit Provider Nurse Practitioner
DX: D45 Polycythemia vera (principal)
CPT/HCPCS: 36415; 85014; 85018

== ENCOUNTER 2022-07-09 02:35 | Outpatient (RCR) | payer MEDICARE, SELFPAY ==
[2022-06-11 07:46] LABS: HGB 15.2 g/dL (13.5-17.5)
[2022-06-25 07:26] LABS: HCT 46.1 % (40.0-50.0); HGB 14.3 g/dL (13.5-17.5)
== END 2022-07-09 23:59 | disposition home or self-care (01) ==
LOC: INF 02:35
PROVIDERS: PCP Nurse Practitioner Family; Visit Provider Nurse Practitioner
DX: D45 Polycythemia vera (principal)
CPT/HCPCS: 36415; 99195; 85014; 85018

== ENCOUNTER 2022-07-20 01:17 | Outpatient (CLI) | payer MEDICARE, SELFPAY ==
[2022-07-20 12:15] LABS: HCT 43.8 % (40.0-50.0); HGB 12.8 g/dL (13.5-17.5)
== END 2022-07-20 01:18 | disposition home or self-care (01) ==
LOC: LOS 01:17
PROVIDERS: PCP Nurse Practitioner Family; Visit Provider Nurse Practitioner
DX: D45 Polycythemia vera (principal)
CPT/HCPCS: 36415; 85014; 85018

== ENCOUNTER 2022-08-03 10:21 | Emergency (ER) | payer MEDICARE, SELFPAY ==
[2022-08-03] VITALS (39 sets, daily range): BP systolic 106–158; BP diastolic 56–88; PULSE 74–96; RESP 8–32; TEMP 37–37.1; O2SAT 75–98
--- NOTE | 2022-08-03 10:15 | RT.EKG_ITS ---
APPROVED REPORT Exam: Resting ECG Reason for Exam: dyspnea Patient Location: E HR:83 bpm ECG Measurements Heart Rate 83 AXIS ID [id number] P [id number] QRSd 115 QRS 115 QT 410 T 64 QTc 483 Conclusion Atrial fibrillation...? atrial activity Nonspecific intraventricular conduction delay...QRSd >115mS, not LBBB/RBBB
--- NOTE | 2022-08-03 10:43 | DI.RAD_ITS ---
Exam(s) XR CHEST 2V PA LATERAL EXAM: XR CHEST 2V PA LATERAL CLINICAL HISTORY: sob TECHNIQUE: COMPARISON: CR XR CHEST 2V PA LATERAL from 06/27/2022 FINDINGS: The heart is enlarged. There is pulmonary vascular redistribution into the upper lobe vasculature co nsistent with pulmonary venous hypertension. There are small bilateral pleural effusions and there a re mild diffuse bilateral intrapulmonary interstitial infiltrates noted. IMPRESSION: Cardiomegaly with mild CHF. RADIATION DOSE DELIVERED: Total DLP
[2022-08-03] MEDS: Levalbuterol 1.25 MG/3 ML UPD VIAL 2.5 MG UPD (10:45)
[2022-08-03] MEDS: Levalbuterol 1.25 MG/3 ML UPD VIAL (10:46)
--- NOTE | 2022-08-03 10:46 | ED.GENADUL_ITS ---
Discharge Plan Disposition Patient Disposition: Home Discharge Details Clinical Impression: COPD (chronic obstructive pulmonary disease) Primary Care Provider: Romeo Gallardo ED Provider: Bud Child Home Meds and New Rx's Prescriptions: New prednisone 20 mg tablet 20 mg PO DAILY Qty: 7 0RF doxycycline monohydrate 100 mg tablet 100 mg PO BID Qty: 20 0RF No Action fluticasone propion-salmeterol [Advair Diskus] 250-50 mcg/dose blister with device 1 inh inhalation BID (DME) OneTouch Ultra Test Strip See Rx Instructions .Route Qty: 100 4RF Rx Instructions: 3 x daily Spiriva with HandiHaler 18 mcg capsule, w/inhalation device 18 mcg Inhalation DAILY Qty: 90 4RF OXYGEN ONE TOUCH BASIC SYSTEM 1 EACH kit 1 ea Miscellaneous TID Qty: 1 0RF Rx Instructions: Dx: 250.00 (DME) blood sugar diagnostic Strip 1 ea Miscellaneous QID Qty: 300 5RF Rx Instructions: One QID Dx: E11.9 albuterol sulfate 2.5 mg /3 mL (0.083 %) solution for nebulization 2.5 mg Inhalation Q4H PRN PRN (Reason: shortness of breath or wheezing) Qty: 180 4RF (DME) lancets [OneTouch UltraSoft Lancets] Misc 1 ea Miscellaneous TID Qty: 204 4RF Rx Instructions: One QID Dx: E11.9 nitroglycerin [Nitrostat] 0.4 mg tablet, sublingual 0.4 mg Sublingual PRN Qty: 25 1RF (DME) pen needle, diabetic [1st Tier Unifine Pentips Plus] 31 gauge x 5/16 needle See Rx Instructions .ROUTE .MEDSUPPLY Qty: 100 4RF Rx Instructions: once daily Xarelto 20 mg tablet 20 mg PO DAILY Qty: 90 4RF amlodipine [Norvasc] 10 mg tablet 10 mg PO QAM Qty: 90 4RF Jardiance 25 mg tablet 25 mg PO DAILY Qty: 90 4RF furosemide [Lasix] 40 mg tablet 60 mg PO BID Qty: 270 4RF insulin glargine [Lantus Solostar U-100 Insulin] 100 unit/mL (3 mL) insulin pen 60 unit subcut DAILY Qty: 4 5RF lisinopril 40 mg tablet 40 mg PO DAILY Qty: 90 4RF metformin 1,000 mg tablet 1,000 mg PO BID Qty: 180 4RF metoprolol tartrate 100 mg tablet 100 mg PO BID Qty: 180 4RF rosuvastatin 10 mg tablet 10 mg PO DAILY Qty: 90 4RF Medical Decision Making Patient with severe than COPD oxygen dependent present to the emergency room for 1 month of exacerbation. States that he was on antibiotics 1 month ago and that did not help him a lot. I assume he was also on steroids at that point. Following to do treatments some IV fluids steroids and magnesium he felt a great deal better. First EKG no signs of ischemia. Normal troponin. Second troponin will be obtained at the 3-hour deepak. Patient second troponin is normal. He will be discharged. Chronic COPD year who lives with saturations in the 85-88. States that he feels a great deal better in the emergency department after treatments. I believe he is okay to go home and actually he wants to go home. He will be sent home with prednisone and with instruction to use his albuterol every 4 hours. He will also be sent home with doxycycline. Sign Out No HPI General Date/Time Provider Initiated Documentation: 08/03/22 10:40 . HPI Narrative: 66-year-old gentleman presents to the emergency room from vehicle. He was seen at the urgent care for difficulty breathing. He was found to have saturations in the 60s 70s and 80s. He refused transport via EMS and drove himself to the hospital. Here he arrives to the emergency department on 3.5 L of oxygen that he usually has. Saturations at rest were in the 80s which he states are his normal sats. He is concerned that he did have desaturations with exertion. He takes albuterol 4 times a day. The last time he took albuterol was last night he states that he has been taking the rest of his pulmonary medication as well as cardiac meds as prescribed. He was ill approximately a month ago. He had a chest x-ray that he does not know the results of the to the state because he was unable to log into his portal. He states that last month he was placed on a short course of antibiot ics that did not seem to help very much. He has had no chest pressure. No back pain. No radiation of any symptoms in his chest to neck or arms. No abdominal pain. No weight loss. He has been sta ble at 250 pounds. He does not recall last time he was on steroids. Related Data Home Medications Medication Instructions Recorded Confirmed Oxygen 12/19/12 08/03/22 blood sugar diagnostic #300 strips 09/15/20 08/03/22 albuterol sulfate 2.5 mg/3 mL 2.5 mg (3 mL) inhalation Q4H PRN 08/14/21 08/03/22 (0.083 %) solution for nebulization PRN shortness of breath or wheezing #180 mL lancets (OneTouch UltraSoft #204 ea 08/14/21 08/03/22 Lancets) nitroglycerin 0.4 mg sublingual 0.4 mg sublingual PRN ##25 08/14/21 08/03/22 tablet (Nitrostat) pen needle, diabetic 31 gauge x #100 ea 08/14/21 08/03/22/ (1st Tier Unifine Pentips Plus) rivaroxaban 20 mg tablet (Xarelto) 20 mg PO DAILY #90 tab-caps 08/14/21 08/03/22 amlodipine 10 mg tablet (Norvasc) 10 mg PO QAM #90 tabs 11/01/21 08/03/22 empagliflozin 25 mg tablet 25 mg PO DAILY #90 tabs 11/01/21 08/03/22 (Jardiance) furosemide 40 mg tablet (Lasix) 60 mg PO BID #270 tabs 11/01/21 08/03/22 insulin glargine 100 unit/mL (3 60 unit (0.6 mL) subcut DAILY ##4 11/01/21 08/03/22 mL) subcutaneous pen (Lantus Solostar U-100 Insulin) lisinopril 40 mg tablet 40 mg PO DAILY #90 tabs 11/01/21 08/03/22 metformin 1,000 mg tablet 1,000 mg PO BID #180 tabs 11/01/21 08/03/22 metoprolol tartrate 100 mg tablet 100 mg PO BID #180 tab-caps 11/01/21 08/03/22 rosuvastatin 10 mg tablet 10 mg PO DAILY #90 tabs 11/01/21 08/03/22 fluticasone 250 mcg-salmeterol 50 1 inh inhalation BID 11/23/21 08/03/22 mcg/dose blistr powdr for inhalation (Advair Diskus) tiotropium bromide 18 mcg capsule 18 mcg inhalation DAILY #90 12/19/21 08/03/22 with inhalation device (Spiriva inhalations with HandiHaler) blood sugar diagnostic (OneTouch #100 ea 04/10/22 08/03/22 Ultra Test strips) doxycycline monohydrate 100 mg 100 mg PO BID #20 tabs 08/03/22 tablet prednisone 20 mg tablet 20 mg PO DAILY #7 tabs 08/03/22 Previous Rx's Medication Instructions Recorded blood sugar diagnostic #300 strips 09/15/20 albuterol sulfate 2.5 mg/3 mL 2.5 mg (3 mL) inhalation Q4H PRN 08/14/21 (0.083 %) solution for nebulization PRN shortness of breath or wheezing #180 mL lancets (OneTouch UltraSoft #204 ea 08/14/21 Lancets) nitroglycerin 0.4 mg sublingual 0.4 mg sublingual PRN ##25 08/14/21 tablet (Nitrostat) pen needle, diabetic 31 gauge x #100 ea 08/14/21 5/16 (1st Tier Unifine Pentips Plus) rivaroxaban 20 mg tablet (Xarelto) 20 mg PO DAILY #90 tab-caps 08/14/21 amlodipine 10 mg tablet (Norvasc) 10 mg PO QAM #90 tabs 11/01/21 empagliflozin 25 mg tablet 25 mg PO DAILY #90 tabs 11/01/21 (Jardiance) furosemide 40 mg tablet (Lasix) 60 mg PO BID #270 tabs 11/01/21 insulin glargine 100 unit/mL (3 60 unit (0.6 mL) subcut DAILY ##4 11/01/21 mL) subcutaneous pen (Lantus Solostar U-100 Insulin) lisinopril 40 mg tablet 40 mg PO DAILY #90 tabs 11/01/21 metformin 1,000 mg tablet 1,000 mg PO BID #180 tabs 11/01/21 metoprolol tartrate 100 mg tablet 100 mg PO BID #180 tab-caps 11/01/21 rosuvastatin 10 mg tablet 10 mg PO DAILY #90 tabs 11/01/21 tiotropium bromide 18 mcg capsule 18 mcg inhalation DAILY #90 12/19/21 with inhalation device (Spiriva inhalations with HandiHaler) blood sugar diagnostic ([employer]Touch #100 ea 04/10/22 Ultra Test strips) doxycycline monohydrate 100 mg 100 mg PO BID #20 tabs 08/03/22 tablet prednisone 20 mg tablet 20 mg PO DAILY #7 tabs 08/03/22 Allergies Allergy/AdvReac Type Severity Reaction Status Date / Time No Known Allergies Allergy Verified 08/03/22 09:46 General Stated Complaint: SOB VINICIUS: 2 Review of Systems Narrative: Constitutional is been negative for fever chills, negative for malaise, negative for fatigue. Eyes: No visual changes, no tearing ENT: No sore throat, no pain in the ears, no hearing change, no rhinorrhea Cardiovascular no chest pain, no shortness of breath with exertion, no palpitations, no lightheadedness Respiratory: see hpi, covid vaccine x 4 as well as influenza GI: No abdominal pain, no diarrhea, no nausea, no vomiting, no dark stools : No dysuria, no frequency, no hematuria MSK: No myalgias, no arthralgias Skin: No rash Neurological: No headaches, no focal weakness, no paresthesias, no dizziness Psych: No anxiety, no depression Endo: No weight gain no weight loss Hematology/lymph: No painful nodes, no easy bleeding, not on blood thinners PFSH All Active Problems COPD (chronic obstructive pulmonary disease) (Chronic) Pain, foot (Acute) Nail dystrophy (Acute) JOSE treated with BiPAP (Acute) CHF (congestive heart failure) (Chronic) systolic - EF 35-40% in 2013 History of intravascular stent placement (Chronic) 2004- one stent, ? [place] Polycythemia vera (Chronic) Obesity (Chronic) Hyperlipidemia (Chronic) Essential hypertension (Chronic 07/07/13) Controlled type 2 diabetes mellitus without complication, with long-term current use of insulin (Chronic 03/06/18) Chronic obstructive lung disease (Chronic) 2004-prolonged intubation; pneumothorax Chronic atrial fibrillation (Chronic 02/09/16) Xarelto Coronary atherosclerosis of [place] coronary vessel (Chronic) stent 2004 Pulmonary hypertension (Chronic) Blepharitis (Acute 11/03/12) Alcohol abuse (Chronic) 2 beers 3-4 x week Medical History Acute on chronic systolic CHF (congestive heart failure) Chronic respiratory failure with hypoxia Dysphagia 2018-- Barium swallow wnl Leukocytosis Right rotator cuff tear 2020- surgery Smoker Quit 2004 Substance abuse meth & cocaine- quit 2004 Viral hepatitis C Treated successfully 2018 Surgical History Stent placement (~2004) LCX Family History Mother Essential hypertension Grandmother Neoplasm Father Diabetes Heart disease Social History Smoking/Tobacco Use Status: Former Tobacco Use tobacco type: cigarettes Quit Date: 09/09/04 Tobacco: How many years used: 40 Second Hand Exposure: Yes Smoking risk assessment performed?: Yes Alcohol Intake: current Alcohol Intake frequency: a few times a week Alcohol type: beer Drug use: Never Substance use type: does not use Household members: none Housing: house Communication Needs: Corrective Lenses Do you need help understanding health information?: Often Pets and animals: Yes Pets and animals: cat(s) Sexually active: No Do you think of yourself as: straight/heterosexual Current gender identity: male What is your relationship status?: never How often do you talk on the phone with friends or family?: twice per week How often do you get together with friends or relatives?: never Do you belong to any clubs or organized social groups?: no Panel score (0-1 are the most socially isolated patients): 0 What type of physical activity do you participate in: none Reba/Taoist: No preference Seatbelt use: sometimes Drive intox 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 Do you feel safe at home: Yes Do you feel safe in your relationship?: Yes Exam Narrative Exam Narrative: General: A,A Ox3, Calm, no apparent distress, well developed, pleasant and cooperative, high BMI Head Size/Shape: normocephalic, atraumatic Eyes Pupils: PERRLA Extraocular Mobility: intact and symmetrical Conjunctiva: non-injected, anicteric, no discharge Ears, Nose, Throat Nares: patent bilaterally Oral Cavity: moist Neck: nsupple no jvd Respiratory Respiratory Effort: no dyspnea Auscultation: clear to auscultation bilaterally, normal breath sounds, no wheezing, no rales/crackles Cardiovascular Heart Auscultation: regular rate and rhythm, normal S1, normal S2, no murmurs, no rubs, no gallops, Pulse Quality: +2 equal bilaterally, location(s) radial Abdomen Inspection and Palpation: soft, non-tender, non-distended, no hepatosplenomegaly Musculoskeletal System Joints, Bones, and Muscles: no deformities Extremities: warm and well-perfused, no cyanosis, capillary refill <2 seconds Skin Skin Inspection: no rash, no lesions, no bruising Neurological Motor: normal tone, normal strength, moving all extremities equally Reflexes: no clonus Psychiatric: good insight, good judgement, normal mood and affect Course Vital Signs Vital signs: Vital Signs Temperature 37 C 08/03/22 10:26 Pulse 78 08/03/22 10:26 Respiratory Rate 17 08/03/22 10:26 Blood Pressure 119/75 08/03/22 10:26 Pulse Oximetry 75 L 08/03/22 10:26 Temperature 37 C 08/03/22 10:26 Temperature Source Skin 08/03/22 10:26 Pulse 78 08/03/22 10:26 Respiratory Rate 17 08/03/22 10:26 Blood Pressure 119/75 08/03/22 10:26 Pulse Oximetry 75 L 08/03/22 10:26 Oxygen Delivery Method Nasal Cannula 08/03/22 10:26 Oxygen Flow Rate 3.5 08/03/22 10:26 Pain Level 0 08/03/22 10:26 Comment 08/03/22 10:26
[2022-08-03 11:08] LABS: Abs Immature Grans 0.08 10^3/uL (0.0-0.06); Absolute Basophil Count 0.15 10^3/uL (0.0-0.2); Absolute Eosinophil Count 0.16 10^3/uL (0.0-0.7); Absolute Monocyte Count 1.09 10^3/uL (0.1-0.8); Basophils % 1.2; Eosinophils % 1.3; HCT 44.3 % (40.0-50.0); HGB 12.9 g/dL (13.5-17.5); Immature Grans % 0.7; Lymphocytes % 9.2; MCH 23.7 pg (27.0-33.0); MCHC 29.1 % (32.0-36.0); MCV 81 fL (80-95); MPV 10.7 fL (8.0-11.0); Monocytes % 8.9; Neutrophils % 78.7; Platelet Count 404 10^3/uL (130-400); RBC 5.44 10^6/uL (4.36-5.78); RDW 15.9 % (11.8-14.1); RDW-SD 46.6 fL; WBC 12.24 10^3/uL (4.4-10.8)
[2022-08-03] MEDS: methylPREDNISolone SUCC 125 MG VIAL IVP (11:18)
[2022-08-03 11:19] LABS: Absolute Lymphocyte Count 1.13 10^3/uL (1.2-3.4); Absolute Neutrophil Count 9.63 10^3/uL (1.2-6.7)
[2022-08-03] MEDS: MAGNESIUM SULFATE 2 GM/50 ML BAG IVPB (11:27)
[2022-08-03 11:59] LABS: ALT 12 U/L (16-63); AST 12 U/L (15-37); Albumin 4.1 g/dL (3.4-5.0); Alkaline Phosphatase 95 U/L (46-116); Anion Gap 8.6 mmol/L (3-11); BUN 14 mg/dL (7-18); Bilirubin, Total 0.9 mg/dL (0.2-1.0); CO2 27.4 mmol/L (21.0-32.0); Calcium 8.8 mg/dL (8.5-10.1); Chloride 104 mmol/L (98-107); Estimated GFR 82.49 (mL/min/1.73m2); Glucose 130 mg/dL (74-106); Magnesium 2.2 mg/dL (1.8-2.4); Potassium 3.9 mmol/L (3.5-5.1); Sodium 140 mmol/L (136-145); Total Protein 8.2 g/dL (6.4-8.2); Troponin I < 50 ng/L (<or=60)
[2022-08-03] MEDS: Doxycycline Hyclate 100 MG CAP PO (14:09)
--- NOTE | 2022-08-03 14:45 | RT.EKG_ITS ---
APPROVED REPORT Exam: Resting ECG Reason for Exam: sob Patient Location: E HR:92 bpm ECG Measurements Heart Rate 92 AXIS ND [id number] P [id number] QRSd 109 QRS 128 QT 395 T 52 QTc 489 Conclusion Atrial fibrillation...? atrial activity Right axis deviation...QRS axis ( 21,777)
[2022-08-03 14:51] LABS: Troponin I < 50 ng/L (<or=60)
== END 2022-08-03 15:26 | disposition home or self-care (01) ==
PROVIDERS: Emergency Provider Emergency Medicine; PCP Nurse Practitioner Family
DX: J44.9 Chronic obstructive pulmonary disease, unspecified (principal); I50.9 Heart failure, unspecified; Z79.51 Long term (current) use of inhaled steroids; Z95.5 Presence of coronary angioplasty implant and graft; Z87.891 Personal history of nicotine dependence
CPT/HCPCS: 36415; 80053; 93005; 94640; 96361; 96374; 99285; 71046; 83735; 84484; 85025; 93010; J2930; J7614

== ENCOUNTER 2022-08-17 01:16 | Outpatient (CLI) | payer MEDICARE, SELFPAY ==
[2022-08-17 13:00] LABS: HCT 43.5 % (40.0-50.0); HGB 12.3 g/dL (13.5-17.5)
== END 2022-08-17 01:17 | disposition home or self-care (01) ==
LOC: LOS 01:18
PROVIDERS: PCP Nurse Practitioner Family; Visit Provider Nurse Practitioner Family
DX: D45 Polycythemia vera (principal)
CPT/HCPCS: 36415; 85014; 85018

== ENCOUNTER 2022-08-28 11:21 | Inpatient (IN) | payer MEDICARE, SELFPAY ==
[2022-08-28] VITALS (30 sets, daily range): BP systolic 108–163; BP diastolic 60–96; PULSE 64–122; RESP 14–35; TEMP 36.2–36.5; O2SAT 78–90
--- NOTE | 2022-08-28 11:15 | RT.EKG_ITS ---
APPROVED REPORT Exam: Resting ECG Reason for Exam: rapid heart rate Patient Location: E HR:121 bpm ECG Measurements Heart Rate 121 AXIS ID [id number] P [id number] QRSd 112 QRS 139 QT 336 T 24 QTc 477 Conclusion Atrial fibrillation...V-rate 102-140, irreg A-activity Ventricular premature complex...V complex w/ short R-R interval
[2022-08-28 12:21] LABS: Abs Immature Grans 0.07 10^3/uL (0.0-0.06); Absolute Lymphocyte Count 0.86 10^3/uL (1.2-3.4); Absolute Monocyte Count 0.91 10^3/uL (0.1-0.8); Eosinophils % 0.8; HGB 12.8 g/dL (13.5-17.5); Immature Grans % 0.6; Lymphocytes % 6.9; MCH 22.1 pg (27.0-33.0); MCHC 28.4 % (32.0-36.0); MCV 78 fL (80-95); Monocytes % 7.3; Neutrophils % 83.4; Platelet Count 386 10^3/uL (130-400); RDW 17.6 % (11.8-14.1); RDW-SD 47.5 fL; WBC 12.53 10^3/uL (4.4-10.8)
[2022-08-28 12:22] LABS: Absolute Basophil Count 0.13 10^3/uL (0.0-0.2); Absolute Neutrophil Count 10.45 10^3/uL (1.2-6.7)
[2022-08-28 12:39] LABS: INR 1.2 (0.9-1.1); PTT Activated 24.5 sec (21.0-27.5); Prothrombin Time 11.9 sec (9.3-11.0)
[2022-08-28 12:47] LABS: ALT 19 U/L (16-63); AST 23 U/L (15-37); Albumin 4.2 g/dL (3.4-5.0); Alkaline Phosphatase 97 U/L (46-116); Anion Gap 10.4 mmol/L (3-11); BUN 10 mg/dL (7-18); Bilirubin, Total 0.7 mg/dL (0.2-1.0); CO2 27.6 mmol/L (21.0-32.0); Chloride 103 mmol/L (98-107); Estimated GFR 82.49 (mL/min/1.73m2); Glucose 191 mg/dL (74-106); Magnesium 1.9 mg/dL (1.8-2.4); Sodium 141 mmol/L (136-145); TSH (W/Ref FT4) 0.37 uIU/mL (0.36-3.74); Total Protein 8.2 g/dL (6.4-8.2); Troponin I < 50 ng/L (<or=60)
[2022-08-28] MEDS: Omnipaque 350 MG/ML 500 ML BTL-Imaging package 100 ML IJ (15:02)
[2022-08-28] MEDS: Normal Saline - Diluent 50 ML VIAL IJ (15:03)
--- NOTE | 2022-08-28 15:06 | W.ED.GENAD ---
Discharge Plan Disposition Patient Disposition: Admit to [facility] Condition: Serious Discharge Details Clinical Impression: Atrial fibrillation with rapid ventricular response, CHF (congestive heart failure), COPD (chronic obstructive pulmonary disease), Chest pain Admit Date/Time: 08/28/22 16:34 Admit Provider: Maycol Cook Attending Provider: Maycol Cook Primary Care Provider: Romeo Gallardo ED Provider: Juan Luis Armendariz Discharge Data Discharge Date/Time-TO BE ENTERED AT DEPARTURE: 08/28/22 17:33 Medical Decision Making 1510??66-year-old male with multiple medical problems including history of coronary artery disease, chronic atrial fibrillation, here with rapid heart rate this morning and now chest tightness which was initially moderate and now improved. Concern for arrhythmia versus acute coronary syndrome. EKG was reviewed and interpreted by me: Please see report, atrial fibrillation with RVR 121 bpm. No STEMI. Labs reviewed and leukocytosis noted. No significant electrolyte abnormalities. Initial troponin negative. TSH normal. Consider acute pulmonary embolism. Plan to obtain CT of the chest. 1545 --CT of the chest was interpreted by radiology: 1. No evidence of acute pulmonary emboli.? No evidence of pulmonary infarction.No pleural effusions. 2. There is bilateral hilar and mediastinal adenopathy again noted, unchanged from 06/05/2021. 3. Cardiomegaly.? Coronary artery calcification.? No pericardial effusion.? No aortic dissection. Patient is hypoxic with pulse ox in the mid 80s on 5 L nasal cannula. He notes he is chronically hypoxic but typically saturating in the 80s on 4 L at home. Patient reassessed and continues to be tachycardic with heart rate around 100-110s. I will give metoprolol 5 mg IV. Delta troponin pending. -- Metoprolol 5 mg IV was administered. Patient was given Lasix 20 mg IV. Patient remained tachycardic. Plan for admission for further treatment. I called and spoke with the hospitalist and discussed ED presentation and course. He will admit the patient. Lab Data Lab results reviewed: Yes I reviewed the patient's lab results. Labs: Laboratory Tests Range/Units 08/28/22 08/28/22 08/28/22 12:13 12:13 12:13 WBC (4.4-10.8) 10^3/uL 12.53 H RBC (4.36-5.78) 10^6/uL 5.80 H Hgb (13.5-17.5) g/dL 12.8 L Hct (40.0-50.0) % 45.0 MCV (80-95) fL 78 L MCH (27.0-33.0) pg 22.1 L MCHC (32.0-36.0) % 28.4 L RDW (11.8-14.1) % 17.6 H Plt Count (130-400) 10^3/uL 386 MPV (8.0-11.0) fL 10.0 Immature Gran % 0.6 Neutrophils % 83.4 Lymphocytes % 6.9 Monocytes % 7.3 Eosinophils % 0.8 Basophils % 1.0 Nucleated RBC % (0.0-0.3) % 0.0 Absolute Neutrophils (1.2-6.7) 10^3/uL 10.45 H Absolute Lymphocytes (1.2-3.4) 10^3/uL 0.86 L Absolute Monocytes (0.1-0.8) 10^3/uL 0.91 H Absolute Eosinophils (0.0-0.7) 10^3/uL 0.10 Absolute Basophils (0.0-0.2) 10^3/uL 0.13 PT (9.3-11.0) sec 11.9 H INR (0.9-1.1) 1.2 H APTT (21.0-27.5) sec 24.5 Sodium (136-145) mmol/L 141 Potassium (3.5-5.1) mmol/L 4.0 Chloride (98-107) mmol/L 103 Carbon Dioxide (21.0-32.0) mmol/L 27.6 Anion Gap (3-11) mmol/L 10.4 BUN (7-18) mg/dL 10 Creatinine (0.70-1.30) mg/dL 1.0 Est GFR (CKD-EPI 2020) (mL/min/1.73m2) 82.49 Glucose (74-106) mg/dL 191 H Calcium (8.5-10.1) mg/dL 9.0 Magnesium (1.8-2.4) mg/dL 1.9 Total Bilirubin (0.2-1.0) mg/dL 0.7 AST (15-37) U/L 23 ALT (16-63) U/L 19 Alkaline Phosphatase (46-116) U/L 97 Troponin I (<or=60) ng/L < 50 Total Protein (6.4-8.2) g/dL 8.2 Albumin (3.4-5.0) g/dL 4.2 TSH (0.36-3.74) uIU/mL 0.37 HPI General Mode of arrival: ambulatory. Date/Time Provider Initiated Documentation: 08/28/22 11:34. Limitations to Documentation: no limitations. Information obtained by: patient. HPI Narrative: 66-year-old male with multiple medical problems including history of coronary artery disease status post stent, CHF, COPD, diabetes, hypertension, chronic atrial fibrillation, here with chief complaint of chest tightness. Patient notes feels like his heart is racing today. He checked his heart rate and it was in the 150s today. He notes initially he thought his chest tightness was indigestion but it persisted. Pain was localized to central chest. Pain was moderate and now mild. He notes he has been feeling better since arrival. Patient denies associated leg swelling or calf pain. He did have associated dizziness earlier today. Related Data Home Medications Medication Instructions Recorded Confirmed Oxygen 12/19/12 08/13/22 blood sugar diagnostic #300 strips 09/15/20 08/13/22 lancets (OneTouch UltraSoft #204 ea 08/14/21 08/13/22 Lancets) pen needle, diabetic 31 gauge x #100 ea 08/14/21 08/13/22/16 (1st Tier Unifine Pentips Plus) rivaroxaban 20 mg tablet (Xarelto) 20 mg PO DAILY #90 tab-caps 08/14/21 08/28/22 amlodipine 10 mg tablet (Norvasc) 10 mg PO QAM #90 tabs 11/01/21 08/28/22 empagliflozin 25 mg tablet 25 mg PO DAILY #90 tabs 11/01/21 08/28/22 (Jardiance) furosemide 40 mg tablet (Lasix) 60 mg PO BID #270 tabs 11/01/21 08/28/22 insulin glargine 100 unit/mL (3 60 unit (0.6 mL) subcut DAILY ##4 11/01/21 08/28/22 mL) subcutaneous pen (Lantus Solostar U-100 Insulin) lisinopril 40 mg tablet 40 mg PO DAILY #90 tabs 11/01/21 08/28/22 metformin 1,000 mg tablet 1,000 mg PO BID #180 tabs 11/01/21 08/28/22 metoprolol tartrate 100 mg tablet 100 mg PO BID #180 tab-caps 11/01/21 08/28/22 rosuvastatin 10 mg tablet 10 mg PO DAILY #90 tabs 11/01/21 08/28/22 albuterol sulfate 2.5 mg/0.5 mL 5 mg inhalation Q4H #180 ea 08/13/22 08/28/22 solution for nebulization tiotropium bromide 18 mcg capsule 18 mcg inhalation DAILY #90 08/13/22 08/28/22 with inhalation device (Spiriva inhalations with HandiHaler) blood sugar diagnostic (QUICK TechnologiesTouch #300 ea 08/15/22 Ultra Test strips) fluticasone 250 mcg-salmeterol 50 1 inh inhalation BID #60 ea 08/15/22 08/28/22 mcg/dose blistr powdr for inhalation (Advair Diskus) doxycycline hyclate 100 mg tablet 100 mg PO BID #8 tabs 08/29/22 prednisone 20 mg tablet 40 mg PO DAILY #4 tabs 08/29/22 albuterol sulfate 2.5 mg/3 mL 2.5 mg (3 mL) inhalation Q4H PRN 08/31/22 (0.083 %) solution for nebulization PRN shortness of breath or wheezing #180 mL nitroglycerin 0.4 mg sublingual 0.4 mg sublingual PRN ##25 08/31/22 tablet (Nitrostat) Previous Rx's Medication Instructions Recorded blood sugar diagnostic #300 strips 09/15/20 lancets (OneTouch UltraSoft #204 ea 08/14/21 Lancets) pen needle, diabetic 31 gauge x #100 ea 08/14/2101/22 (1st Tier Unifine Pentips Plus) rivaroxaban 20 mg tablet (Xarelto) 20 mg PO DAILY #90 tab-caps 08/14/21 amlodipine 10 mg tablet (Norvasc) 10 mg PO QAM #90 tabs 11/01/21 empagliflozin 25 mg tablet 25 mg PO DAILY #90 tabs 11/01/21 (Jardiance) furosemide 40 mg tablet (Lasix) 60 mg PO BID #270 tabs 11/01/21 insulin glargine 100 unit/mL (3 60 unit (0.6 mL) subcut DAILY ##4 11/01/21 mL) subcutaneous pen (Lantus Solostar U-100 Insulin) lisinopril 40 mg tablet 40 mg PO DAILY #90 tabs 11/01/21 metformin 1,000 mg tablet 1,000 mg PO BID #180 tabs 11/01/21 metoprolol tartrate 100 mg tablet 100 mg PO BID #180 tab-caps 11/01/21 rosuvastatin 10 mg tablet 10 mg PO DAILY #90 tabs 11/01/21 albuterol sulfate 2.5 mg/0.5 mL 5 mg inhalation Q4H #180 ea 08/13/22 solution for nebulization tiotropium bromide 18 mcg capsule 18 mcg inhalation DAILY #90 08/13/22 with inhalation device (Spiriva inhalations with HandiHaler) blood sugar diagnostic (Vee24 #300 ea 08/15/22 Ultra Test strips) fluticasone 250 mcg-salmeterol 50 1 inh inhalation BID #60 ea 08/15/22 mcg/dose blistr powdr for inhalation (Advair Diskus) doxycycline hyclate 100 mg tablet 100 mg PO BID #8 tabs 08/29/22 prednisone 20 mg tablet 40 mg PO DAILY #4 tabs 08/29/22 albuterol sulfate 2.5 mg/3 mL 2.5 mg (3 mL) inhalation Q4H PRN 08/31/22 (0.083 %) solution for nebulization PRN shortness of breath or wheezing #180 mL nitroglycerin 0.4 mg sublingual 0.4 mg sublingual PRN ##25 08/31/22 tablet (Nitrostat) Allergies Allergy/AdvReac Type Severity Reaction Status Date / Time No Known Allergies Allergy Verified 08/28/22 12:05 General Stated Complaint: Chest Pain VINICIUS: 3 Review of Systems All systems reviewed & are unremarkable except as noted in HPI and below Constitutional Constitutional: Denies fever(s) Cardiovascular Cardiovascular: Reports chest pain, Reports rapid heart rate and Denies dyspnea Respiratory Respiratory: Denies dyspnea PFSH All Active Problems Atrial fibrillation with rapid ventricular response (Acute) Chest pain (Acute) COPD (chronic obstructive pulmonary disease) (Chronic) Pain, foot (Acute) Nail dystrophy (Acute) JOSE treated with BiPAP (Acute) CHF (congestive heart failure) (Chronic) systolic - EF 35-40% in 2013 History of intravascular stent placement (Chronic) 2005- one stent, ? [place] Polycythemia vera (Chronic) Obesity (Chronic) Hyperlipidemia (Chronic) Essential hypertension (Chronic 07/07/13) Controlled type 2 diabetes mellitus without complication, with long-term current use of insulin (Chronic 03/06/18) Chronic obstructive lung disease (Chronic) 2005-prolonged intubation; pneumothorax Chronic atrial fibrillation (Chronic 02/09/16) Xarelto Coronary atherosclerosis of [place] coronary vessel (Chronic) stent 2004 Pulmonary hypertension (Chronic) Blepharitis (Acute 11/03/12) Alcohol abuse (Chronic) 2 beers 3-4 x week Medical History Acute on chronic systolic CHF (congestive heart failure) Chronic respiratory failure with hypoxia Dysphagia 2018-- Barium swallow wnl Leukocytosis Right rotator cuff tear 2020- declines surgery Smoker Quit 2004 Substance abuse meth & cocaine- quit 2004 Viral hepatitis C Treated successfully 2017 Surgical History Stent placement (~2004) LCX Family History Mother Essential hypertension Grandmother Neoplasm Father Diabetes Heart disease Social History Smoking/Tobacco Use Status: Former Tobacco Use tobacco type: cigarettes Quit Date: 09/09/04 Tobacco: How many years used: 40 Second Hand Exposure: Yes Smoking risk assessment performed?: Yes Alcohol Intake: current Alcohol Intake frequency: a few times a week Alcohol type: beer Drug use: Never Substance use type: does not use Details: former Cocaine, methamphetamine user 20+ years ago Household members: none Housing: house Communication Needs: Corrective Lenses Do you need help understanding health information?: Often Pets and animals: Yes Pets and animals: cat(s) Sexually active: No Do you think of yourself as: straight/heterosexual Current gender identity: male What is your relationship status?: never How often do you talk on the phone with friends or family?: twice per week How often do you get together with friends or relatives?: never Do you belong to any clubs or organized social groups?: no Panel score (0-1 are the most socially isolated patients): 0 What type of physical activity do you participate in: none Reba/Yazidism: No preference Seatbelt use: sometimes Drive intox or ride w/intox log driver: No Do you feel safe at home: Yes Do you feel safe in your relationship?: Yes Exam Const General: cooperative HENMT Mouth: moist mucous membranes Eyes Conjunctivae: normal conjunctivae Sclera: normal sclerae EOM: EOM intact bilaterally Neck Neck: trachea midline Resp Auscultation: clear to auscultation bilaterally, no rales, no rhonchi and no wheezes Cardio Rate: tachycardic Rhythm: abnormal rhythm GI Palpation: soft, not firm, no guarding, no masses, not rigid and nontender Skin General skin exam: no rashes or lesions noted Neuro General: patient alert, patient awake and tone normal Extrem General: no calf tenderness and no edema Psych Appearance: grossly normal Mental Status: mental status grossly normal Speech and Movement: speech and movement normal Course Vital Signs Vital signs: Vital Signs Temperature 36.2 C L 08/28/22 11:25 Pulse 122 H 08/28/22 11:25 Respiratory Rate 24 08/28/22 11:25 Blood Pressure 163/75 H 08/28/22 11:25 Pulse Oximetry 89 L 08/28/22 11:25 Temperature 36.2 C L 08/28/22 11:25 Temperature Source Oral 08/28/22 11:25 Pulse 122 H 08/28/22 11:25 Respiratory Rate 24 08/28/22 11:25 Respiratory Effort 08/28/22 11:54 Blood Pressure 163/75 H 08/28/22 11:25 Blood Pressure Position Sitting 08/28/22 11:25 Pulse Oximetry 89 L 08/28/22 11:25 Oxygen Delivery Method Nasal Cannula 08/28/22 11:25 Oxygen Flow Rate 4 08/28/22 11:25 Lab/Test Results Lab/Test Results: Laboratory Tests Range/Units 08/28/22 08/28/22 08/28/22 12:13 12:13 12:13 WBC (4.4-10.8) 10^3/uL 12.53 H RBC (4.36-5.78) 10^6/uL 5.80 H Hgb (13.5-17.5) g/dL 12.8 L Hct (40.0-50.0) % 45.0 MCV (80-95) fL 78 L MCH (27.0-33.0) pg 22.1 L MCHC (32.0-36.0) % 28.4 L RDW (11.8-14.1) % 17.6 H Plt Count (130-400) 10^3/uL 386 MPV (8.0-11.0) fL 10.0 Immature Gran % 0.6 Neutrophils % 83.4 Lymphocytes % 6.9 Monocytes % 7.3 Eosinophils % 0.8 Basophils % 1.0 Nucleated RBC % (0.0-0.3) % 0.0 Absolute Neutrophils (1.2-6.7) 10^3/uL 10.45 H Absolute Lymphocytes (1.2-3.4) 10^3/uL 0.86 L Absolute Monocytes (0.1-0.8) 10^3/uL 0.91 H Absolute Eosinophils (0.0-0.7) 10^3/uL 0.10 Absolute Basophils (0.0-0.2) 10^3/uL 0.13 PT (9.3-11.0) sec 11.9 H INR (0.9-1.1) 1.2 H APTT (21.0-27.5) sec 24.5 Sodium (136-145) mmol/L 141 Potassium (3.5-5.1) mmol/L 4.0 Chloride (98-107) mmol/L 103 Carbon Dioxide (21.0-32.0) mmol/L 27.6 Anion Gap (3-11) mmol/L 10.4 BUN (7-18) mg/dL 10 Creatinine (0.70-1.30) mg/dL 1.0 Est GFR (CKD-EPI 2020) (mL/min/1.73m2) 82.49 Glucose (74-106) mg/dL 191 H Calcium (8.5-10.1) mg/dL 9.0 Magnesium (1.8-2.4) mg/dL 1.9 Total Bilirubin (0.2-1.0) mg/dL 0.7 AST (15-37) U/L 23 ALT (16-63) U/L 19 Alkaline Phosphatase (46-116) U/L 97 Troponin I (<or=60) ng/L < 50 Total Protein (6.4-8.2) g/dL 8.2 Albumin (3.4-5.0) g/dL 4.2 TSH (0.36-3.74) uIU/mL 0.37 Critical Care Time Critical Care Time Critical Care Time: Yes Total Critical Care Time: 40 Attestation: I spent greater than 40 minutes addressing this patient's immediate life threats. Please see MDM section of note. This time was spent engaged in work directly related to the patient's care, exclusive of separate procedures, and failure to initiate these interventions would have likely resulted in clinically significant or life threatening deterioration in the patient's condition. PAWSS Have you Been Recently Intoxicated or Drunk Within the Last 30 days?: No Have you Ever Experienced Previous Episodes of Alcohol Withdrawal?: No Have you ever Experienced Withdrawal Seizures?: No Have you ever Experienced Delirium Tremens(DT)s?: No Have you ever undergone Alcohol Rehabilitation Treatment (i.e, inpt ot outpatient treatment programs)?: No Have you ever Experienced Blackouts?: No Have you ever Combined Alcohol with other Downers within the last 90 days?: No Have you ever Combined Alcohol with any other Substance of Abuse during the last 90 days?: No Result: 0
--- NOTE | 2022-08-28 15:08 | DI.CT_ITS ---
Exam(s) CT CHEST PE CTA EXAM: CT CHEST PE CTA CLINICAL HISTORY: tachycardia, chest pain. TECHNIQUE: Imaging Protocol: CT angiography of the chest was performed using pulmonary embolus bobby col. Multi planar reconstructions were performed. CONTRAST MATERIAL: Intravenous: Omnipaque 350 Contrast volume: 100 cc COMPARISON: CT CT CHEST PE CTA from 06/05/2021 FINDINGS: CHEST: PULMONARY ARTERIES: Suboptimal injection bolus. There are no obvious intraluminal filling defects to suggest acute pulmonary emboli. LUNGS: There are no infiltrates nor evidence of pulmonary infarction.. There are no pleural effusions . MEDIASTINUM: There is bilateral a hilar as well as mediastinal adenopathy. This finding is similar t o prior study of 06/06/2021 there are calcified nodules noted in the right thyroid lobe. CARDIAC: Heart size is enlarged. There is no pericardial effusion. Moderate coronary artery calcifi cation is noted in left side of the heart involving left coronary artery and LAD and circumflex. The re is no pericardial effusion.Caliber of the thoracic aorta is within normal limits. No dissection. There is no significant shift of the interventricular septum. PARTIALLY VISUALIZED UPPERMOST ABDOMEN: No obvious findings OSSEOUS: No significant osseous lesions.. IMPRESSION: 1. No evidence of acute pulmonary emboli. No evidence of pulmonary infarction.No pleural effusions. 2. There is bilateral hilar and mediastinal adenopathy again noted, unchanged from 06/05/2021. 3. Cardiomegaly. Coronary artery calcification. No pericardial effusion. No aortic dissection. RADIATION DOSE DELIVERED: 556.12mGy.cm Total DLP DATA REPOSITORY: All CT scans at this facility are submitted to the National Radiology Data Registry (NRDR) Dose Index Registry (DIR) with the [employer] (ACR). RADIATION OPTIMIZATION: All CT scans at this facility use at least one of these dose optimization te chniques: automated exposure control; mA and/or kV adjustment per patient size (includes targeted exa ms where dose is matched to clinical indication); or iterative reconstruction.
[2022-08-28 15:49] LABS: Troponin I < 50 ng/L (<or=60)
[2022-08-28] MEDS: Metoprolol 5 MG/5 ML VIAL IVP (15:52)
[2022-08-28 16:42] LABS: COVID-19 PCR Negative (Negative); Influenza A PCR Negative (Negative); Influenza B PCR Negative (Negative); RSV PCR Negative (Negative)
[2022-08-28 16:45] LABS: Lab Add On Test DONE
[2022-08-28 16:45] LABS: Source Nasopharynx
[2022-08-28 17:43] LABS: Procalcitonin < 0.1 ng/mL
[2022-08-28] MEDS: Furosemide 40 MG TAB 60 MG PO (18:09)
--- NOTE | 2022-08-28 18:19 | HPE_ITS ---
Date of service: 08/28/22 Time of Service: 18:20 Assessment and Plan Assessment and plan (1) COPD (chronic obstructive pulmonary disease): Status: Chronic Assessment and plan: No current resp distress. WBC count mildly elevated but no infiltrates or consolidations noted on CTA. Doxycycline for possible bronchitis. Very close to his baseline supplemental O2 needs which is 4L NC. Now on 5L NC Scattered wheezing noted. Albuterol prn. Cont Advair and Spiriva Prednisone 40mg po daily. (2) JOSE treated with BiPAP: Status: Acute Assessment and plan: He has a high-end home CPAP that he purchased and does not want to risk damaging it by bringing it to the hospital. Will provide CPAP (3) Controlled type 2 diabetes mellitus without complication, with long-term current use of insulin: Status: Chronic Assessment and plan: HOlding metformin in background of receiving IV contrast. Cont Glargine and add SS correction dosing of insulin. Cont Jardiance. ACHS glucose monitoring. Diabetic diet. (4) Essential hypertension: Status: Chronic Assessment and plan: Cont lisinopril, amlodipine and metoprolol. (5) Chronic atrial fibrillation: Status: Chronic Assessment and plan: Rate now controlled. Cont home metoprolol dosing at this time. PRN IV metoprolol for RVR. Cont Xarelto. (6) Acute on chronic systolic CHF (congestive heart failure): Assessment and plan: Cont home dosing of furosemide; 60mg BID. Cont lisinopril. (7) Coronary atherosclerosis of [place] coronary vessel: Status: Chronic Assessment and plan: Cont BB, statin. No c/o CP once HR controlled. Troponin negative x 2. (8) Discharge planning issues: Status: Acute Assessment and plan: Possibly d/c tomorrow if rate remains controlled. History of Present Illness History of Present Illness Chief Complaint: Chest pain, tachycardia Narrative: This is a 66 yo male with a PMH of CAD with stents, CHF, Afib, DM2, HTN. He presented to the ED with c/o chest tightness that was associated a heart rate in the 150's. Initially he felt this might be indigestion. The pain was in the central chest. He also endorsed dizziness at one point in time prior to admission. He did relate that he hadn't taken his noon dose of lasix. His EKG showed afib with a vent. rate of 121. A dose of IV metoprolol 5mg administered and his heart rate improved and was in the 80's upon admission. He did have a mildly elevated WBC count of 12.53. Procalcitonin negative. Troponin neg. x 2. CT chest w/o pulmonary embolism or consolidation/infiltrate. He was also administered IV lasix. His baseline O2 saturation on 4L NC at home is 85%. [facility] All Active Problems Discharge planning issues (Acute) COPD (chronic obstructive pulmonary disease) (Chronic) Pain, foot (Acute) Nail dystrophy (Acute) JOSE treated with BiPAP (Acute) CHF (congestive heart failure) (Chronic) systolic - EF 35-40% in 2013 History of intravascular stent placement (Chronic) 2005- one stent, ? [place] Polycythemia vera (Chronic) Obesity (Chronic) Hyperlipidemia (Chronic) Essential hypertension (Chronic 07/07/13) Controlled type 2 diabetes mellitus without complication, with long-term current use of insulin (Chronic 03/06/18) Chronic obstructive lung disease (Chronic) 2005-prolonged intubation; pneumothorax Chronic atrial fibrillation (Chronic 02/09/16) Xarelto Coronary atherosclerosis of [place] coronary vessel (Chronic) stent 2004 Pulmonary hypertension (Chronic) Blepharitis (Acute 11/03/12) Alcohol abuse (Chronic) 2 beers 3-4 x week Medical History Acute on chronic systolic CHF (congestive heart failure) Chronic respiratory failure with hypoxia Dysphagia 2018-- Barium swallow wnl Leukocytosis Right rotator cuff tear 2020- declines surgery Smoker Quit 2004 Substance abuse meth & cocaine- quit 2004 Viral hepatitis C Treated successfully 2018 Surgical History Stent placement (~2004) LCX Family History Mother Essential hypertension Grandmother Neoplasm Father Diabetes Heart disease Social History Smoking/Tobacco Use Status: Former Tobacco Use tobacco type: cigarettes Quit Date: 09/09/04 Tobacco: How many years used: 40 Second Hand Exposure: Yes Smoking risk assessment performed?: Yes Alcohol Intake: current Alcohol Intake frequency: a few times a week Alcohol type: beer Drug use: Never Substance use type: does not use Details: former Cocaine, methamphetamine user 20+ years ago Household members: none Housing: house Communication Needs: Corrective Lenses Do you need help understanding health information?: Often Pets and animals: Yes Pets and animals: cat(s) Sexually active: No Do you think of yourself as: straight/heterosexual Current gender identity: male What is your relationship status?: never How often do you talk on the phone with friends or family?: twice per week How often do you get together with friends or relatives?: never Do you belong to any clubs or organized social groups?: no Panel score (0-1 are the most socially isolated patients): 0 What type of physical activity do you participate in: none Reba/Orthodox: No preference Seatbelt use: sometimes Drive intox or ride w/intox limousine driver: No Do you feel safe at home: Yes Do you feel safe in your relationship?: Yes Meds Allergies and Home Medications Allergies Allergy/AdvReac Type Severity Reaction Status Date / Time No Known Allergies Allergy Verified 08/28/22 12:05 Home Medications Medication Instructions Recorded Confirmed Type Oxygen 12/19/12 08/13/22 History One Touch Basic System 1 ea miscellaneous TID ##1 03/26/13 11/09/19 Clinic blood sugar diagnostic #300 strips 09/15/20 08/13/22 Rx lancets (OneTouch UltraSoft #204 ea 08/14/21 08/13/22 Rx Lancets) nitroglycerin 0.4 mg sublingual 0.4 mg sublingual PRN ##25 08/14/21 08/28/22 Rx tablet (Nitrostat) pen needle, diabetic 31 gauge x #100 ea 08/14/21 08/13/22 Rx 5/16 (1st Tier Unifine Pentips Plus) rivaroxaban 20 mg tablet (Xarelto) 20 mg PO DAILY #90 tab-caps 08/14/21 08/28/22 Rx amlodipine 10 mg tablet (Norvasc) 10 mg PO QAM #90 tabs 11/01/21 08/28/22 Rx empagliflozin 25 mg tablet 25 mg PO DAILY #90 tabs 11/01/21 08/28/22 Rx (Jardiance) furosemide 40 mg tablet (Lasix) 60 mg PO BID #270 tabs 11/01/21 08/28/22 Rx insulin glargine 100 unit/mL (3 60 unit (0.6 mL) subcut DAILY ##4 11/01/21 Rx mL) subcutaneous pen (Lantus Solostar U-100 Insulin) lisinopril 40 mg tablet 40 mg PO DAILY #90 tabs 11/01/21 08/28/22 Rx metformin 1,000 mg tablet 1,000 mg PO BID #180 tabs 11/01/21 08/28/22 Rx metoprolol tartrate 100 mg tablet 100 mg PO BID #180 tab-caps 11/01/21 08/28/22 Rx rosuvastatin 10 mg tablet 10 mg PO DAILY #90 tabs 11/01/21 08/28/22 Rx albuterol sulfate 2.5 mg/0.5 mL 5 mg inhalation Q4H #180 ea 08/13/22 08/28/22 Rx solution for nebulization tiotropium bromide 18 mcg capsule 18 mcg inhalation DAILY #90 08/13/22 08/28/22 Rx with inhalation device (Spiriva inhalations with HandiHaler) albuterol sulfate 2.5 mg/3 mL 2.5 mg (3 mL) inhalation Q4H PRN 08/15/22 08/28/22 Rx (0.083 %) solution for nebulization PRN shortness of breath or wheezing #180 mL blood sugar diagnostic (OneTouch #300 ea 08/15/22 Rx Ultra Test strips) fluticasone 250 mcg-salmeterol 50 1 inh inhalation BID #60 ea 08/15/22 08/28/22 Rx mcg/dose blistr powdr for inhalation (Advair Diskus) Exam Narrative Exam Narrative: Pleasant obese mail lying in bed. Positions himself readily to sit on edge of bed. Const General: cooperative and no acute distress Nutritional Appearance: obese Orientation: alert and oriented x3 Eyes General: appearance normal, both eyes and all related structures Sclera: sclerae normal Neck Neck: full ROM and other (large girth) Resp Effort & Inspection: normal respiratory effort Auscultation: diminished lung sounds and wheezes Cardio Rate: regular rate Rhythm: abnormal rhythm irregularly irregular GI Inspection: non-distended and obesity Palpation: soft and nontender Skin General skin exam: no rashes or lesions noted Neuro General: patient alert, patient oriented x3 and no focal motor deficits Cranial Nerves: facial strength normal Speech: speech normal Gait: normal gait Extrem General: no pedal edema and no calf tenderness Psych Mental Status: mental status grossly normal Affect: normal affect Results Labs Result diagrams: 08/28/22 12:13 08/28/22 12:13 Labs: Laboratory Results - last 24 hr 08/28/22 08/28/22 08/28/22 12:13 12:13 12:13 WBC 12.53 H RBC 5.80 H Hgb 12.8 L Hct 45.0 MCV 78 L MCH 22.1 L MCHC 28.4 L RDW 17.6 H Plt Count 386 MPV 10.0 Immature Gran % 0.6 Neutrophils % 83.4 Lymphocytes % 6.9 Monocytes % 7.3 Eosinophils % 0.8 Basophils % 1.0 Nucleated RBC % 0.0 Absolute Neutrophils 10.45 H Absolute Lymphocytes 0.86 L Absolute Monocytes 0.91 H Absolute Eosinophils 0.10 Absolute Basophils 0.13 PT 11.9 H INR 1.2 H APTT 24.5 Sodium 141 Potassium 4.0 Chloride 103 Carbon Dioxide 27.6 Anion Gap 10.4 BUN 10 Creatinine 1.0 Est GFR (CKD-EPI 2020) 82.49 Glucose 191 H Calcium 9.0 Magnesium 1.9 Total Bilirubin 0.7 AST 23 ALT 19 Alkaline Phosphatase 97 Troponin I < 50 Total Protein 8.2 Albumin 4.2 Procalcitonin TSH 0.37 COVID-19 Source SARS-CoV-2 (PCR) Influenza Type A (PCR) Influenza Type B (PCR) RSV (PCR) Add-On Test Request 08/28/22 08/28/22 08/28/22 12:13 15:21 15:55 WBC RBC Hgb Hct MCV MCH MCHC RDW Plt Count MPV Immature Gran % Neutrophils % Lymphocytes % Monocytes % Eosinophils % Basophils % Nucleated RBC % Absolute Neutrophils Absolute Lymphocytes Absolute Monocytes Absolute Eosinophils Absolute Basophils PT INR APTT Sodium Potassium Chloride Carbon Dioxide Anion Gap BUN Creatinine Est GFR (CKD-EPI 2020) Glucose Calcium Magnesium Total Bilirubin AST ALT Alkaline Phosphatase Troponin I < 50 Total Protein Albumin Procalcitonin < 0.1 TSH COVID-19 Source Nasopharynx SARS-CoV-2 (PCR) Negative Influenza Type A (PCR) Negative Influenza Type B (PCR) Negative RSV (PCR) Negative Add-On Test Request 08/28/22 Unknown WBC RBC Hgb Hct MCV MCH MCHC RDW Plt Count MPV Immature Gran % Neutrophils % Lymphocytes % Monocytes % Eosinophils % Basophils % Nucleated RBC % Absolute Neutrophils Absolute Lymphocytes Absolute Monocytes Absolute Eosinophils Absolute Basophils PT INR APTT Sodium Potassium Chloride Carbon Dioxide Anion Gap BUN Creatinine Est GFR (CKD-EPI 2020) Glucose Calcium Magnesium Total Bilirubin AST ALT Alkaline Phosphatase Troponin I Total Protein Albumin Procalcitonin TSH COVID-19 Source SARS-CoV-2 (PCR) Influenza Type A (PCR) Influenza Type B (PCR) RSV (PCR) Add-On Test Request DONE Last Vital Signs Temp 36.5 C 08/28/22 17:47 Pulse 88 08/28/22 17:47 Resp 24 08/28/22 17:47 BP 138/80 08/28/22 17:47 Pulse Ox 88 L 08/28/22 17:47 PAWSS Have you Been Recently Intoxicated or Drunk Within the Last 30 days?: No Have you Ever Experienced Previous Episodes of Alcohol Withdrawal?: No Have you ever Experienced Withdrawal Seizures?: No Have you ever Experienced Delirium Tremens(DT)s?: No Have you ever undergone Alcohol Rehabilitation Treatment (i.e, inpt ot outpatient treatment programs)?: No Have you ever Experienced Blackouts?: No Have you ever Combined Alcohol with other Downers within the last 90 days?: No Have you ever Combined Alcohol with any other Substance of Abuse during the last 90 days?: No Result: 0
[2022-08-28] MEDS: Budesonide/Formoterol 160/4.5 6 GM 60 PUFF INH IH (19:32)
[2022-08-28] MEDS: DOXYCYCLINE 100 MG in Normal Saline 100 ML IVPB (19:56)
[2022-08-28] MEDS: predniSONE 20 MG TAB 40 MG PO (19:57)
[2022-08-28] MEDS: Metoprolol 50 MG TAB 100 MG PO (19:57)
[2022-08-28] MEDS: Rivaroxaban 10 MG TABLET 20 MG PO (20:27)
[2022-08-29 02:15] VITALS: BP 136/74; PULSE 65; RESP 20; TEMP 36.1
[2022-08-29 02:55] VITALS: PULSE 73
[2022-08-29 07:32] VITALS: BP 144/83; PULSE 79; RESP 20; TEMP 36; O2SAT 92
[2022-08-29 07:36] LABS: Abs Immature Grans 0.02 10^3/uL (0.0-0.06); Absolute Basophil Count 0.03 10^3/uL (0.0-0.2); Absolute Lymphocyte Count 0.43 10^3/uL (1.2-3.4); Absolute Neutrophil Count 7.06 10^3/uL (1.2-6.7); Basophils % 0.4; HCT 42.1 % (40.0-50.0); HGB 12.2 g/dL (13.5-17.5); Immature Grans % 0.3; Lymphocytes % 5.6; MCH 22.1 pg (27.0-33.0); MCV 76 fL (80-95); MPV 10.4 fL (8.0-11.0); Monocytes % 2.6; Neutrophils % 91.1; Platelet Count 419 10^3/uL (130-400); RBC 5.52 10^6/uL (4.36-5.78); RDW 17.2 % (11.8-14.1); RDW-SD 46.9 fL; WBC 7.74 10^3/uL (4.4-10.8)
[2022-08-29] MEDS: Budesonide/Formoterol 160/4.5 6 GM 60 PUFF INH IH (07:47)
[2022-08-29 07:49] LABS: Anion Gap 8.5 mmol/L (3-11); BUN 12 mg/dL (7-18); CO2 27.5 mmol/L (21.0-32.0); CREATININE 0.9 mg/dL (0.70-1.30); Calcium 8.9 mg/dL (8.5-10.1); Chloride 102 mmol/L (98-107); Estimated GFR 93.61 (mL/min/1.73m2); Glucose 255 mg/dL (74-106); Magnesium 2.2 mg/dL (1.8-2.4); Potassium 4.2 mmol/L (3.5-5.1); Sodium 138 mmol/L (136-145)
[2022-08-29] MEDS: Tiotropium Bromide-Respimat 10 PUFF INH IH (07:49)
[2022-08-29 08:49] VITALS: PULSE 75
[2022-08-29] MEDS: Insulin Aspart 300 UNITS/3 ML PEN SC ×2 (09:20→12:17)
[2022-08-29 09:21] VITALS: RESP 18
[2022-08-29] MEDS: predniSONE 20 MG TAB 40 MG PO (09:21)
[2022-08-29] MEDS: Insulin Glargine 300 UNITS/3 ML PEN 60 UNITS SC (09:21)
[2022-08-29] MEDS: Empaglifozin 25 MG TAB PO (09:21)
[2022-08-29] MEDS: Metoprolol 50 MG TAB 100 MG PO (09:21)
[2022-08-29] MEDS: DOXYCYCLINE 100 MG in Normal Saline 100 ML IVPB (09:22)
[2022-08-29] MEDS: Normal Saline Flush 10 ML SYR IVP (09:22)
[2022-08-29] MEDS: Lisinopril 20 MG TAB 40 MG PO (09:22)
[2022-08-29] MEDS: amLODIPine 10 MG TAB PO (09:22)
[2022-08-29] MEDS: Furosemide 40 MG TAB 60 MG PO (09:22)
--- NOTE | 2022-08-29 09:26 | PDOC.CMIN ---
- If Service Date Differs Date of service: 08/29/22 Time of Service: 09:26 Care Management Initial Assess REASON FOR HOSPITALIZATION:: Afib with RVR PAST MEDICAL HISTORY/PAST SURGICAL HISTORY:: All Active Problems. Discharge planning issues (Acute). COPD (chronic obstructive pulmonary disease) (Chronic). Pain, foot (Acute). Nail dystrophy (Acute). JOSE treated with BiPAP (Acute). CHF (congestive heart failure) (Chronic). systolic - EF 35-40% in 2014. History of intravascular stent placement (Chronic). 2005- one stent, ? [place]. Polycythemia vera (Chronic). Obesity (Chronic). Hyperlipidemia (Chronic). Essential hypertension (Chronic 07/07/13). Controlled type 2 diabetes mellitus without complication, with long-term current use of insulin (Chronic 03/06/18). Chronic obstructive lung disease (Chronic). 2005-prolonged intubation; pneumothorax. Chronic atrial fibrillation (Chronic 02/09/16). Xarelto. Coronary atherosclerosis of [place] coronary vessel (Chronic). stent 2004. Pulmonary hypertension (Chronic). Blepharitis (Acute 11/03/12). Alcohol abuse (Chronic). 2 beers 3-4 x week. Medical History . Acute on chronic systolic CHF (congestive heart failure). Chronic respiratory failure with hypoxia. Dysphagia. 2018-- Barium swallow wnl. Leukocytosis. Right rotator cuff tear. 2020- declines surgery. Smoker. Quit 2004. Substance abuse. meth & cocaine- quit 2004. Viral hepatitis C. Treated successfully 2017. Surgical History . Stent placement (~2004). 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 He has 5 children to that live locally. [facility], he has a CPAP, and a home nebulizer. Maximiliano is independent with ADLs including transportation. ADVANCE DIRECTIVES:: On file, Agents are Parrish Campa Trevor (alisson) Has patient been provided with info about the portal/API?: Yes Did the patient sign up for the portal?: No CODE STATUS:: DNR/DNI INSURANCE COVERAGE / FINANCIAL ISSUES:: Medicare A&B. Financial Asst 100 CURRENT HOME/COMMUNITY SERVICES/EQUIPMENT:: CPAP, Oxygen through [facility], Nebulizer through [facility] PRIMARY CARE PHYSICIAN:: Romeo Short POTENTIAL DISCHARGE NEEDS:: Follow up appt with PCP, scheduled prior to discharge PATIENT/FAMILY EDUCATION NEEDS:: Discharge education, limitations, follow-up plan of care, review ask me three and self-management. TRANSPORTATION:: Via private car with family at time of discharge PLAN:: Maximiliano is being closely monitored and treated. Additional services to be determined. CM to continue to provide support and assess for discharge needs and services.
--- NOTE | 2022-08-29 12:17 | DSE_ITS ---
Date of service: 08/29/22 Time of Service: 12:42 DS: Diagnosis Discharge Diagnosis (1) COPD (chronic obstructive pulmonary disease): Status: Chronic (2) JSOE treated with BiPAP: Status: Acute (3) Controlled type 2 diabetes mellitus without complication, with long-term current use of insulin: Status: Chronic (4) Essential hypertension: Status: Chronic (5) Chronic atrial fibrillation: Status: Chronic (6) Acute on chronic systolic CHF (congestive heart failure): (7) Coronary atherosclerosis of [place] coronary vessel: Status: Chronic (8) Discharge planning issues: Status: Acute Discharge Plan Disposition Patient Disposition: Home Condition: Improving Discharge Details Reason For Visit: Atrial fibrillation with rapid ventriculat rate, Admit Date/Time: 08/28/22 16:34 Admit Provider: Maycol Cook Attending Provider: Maycol Cook Primary Care Provider: Romeo Gallardo Hospital Course Hospital Course: This is a 66 yo male with a PMH of CAD with stents, CHF, Afib, DM2, HTN.? He presented to the ED with c/o chest tightness that was associated a heart rate in the 150's.? Initially he felt this might be indigestion.? The pain was in the central chest. He also endorsed dizziness at one point in time prior to admission.? He did relate that he hadn't taken his noon dose of lasix.? His EKG showed afib with a vent. rate of 121.? A dose of IV metoprolol 5mg administered and his heart rate improved and was in the 80's upon admission.? He did have a mildly elevated WBC count of 12.53.? Procalcitonin negative.? Troponin neg. x 2.? CT chest w/o pulmonary embolism or consolidation/infiltrate. He was also administered IV lasix.Fluvid was negative. His baseline O2 saturation on 4L NC at home is 85%. Overnight and the following AM his heart rate remained in afib with a normal ventricular rate. He states that for several months he has had increasing dyspnea on exertion. No worse currently. He will complete a 5 day course of doxycycline; possibly experiencing an acute on chronic bronchitis episode. Prednisone 40mg daily for 2 more days. Low sodium diet highly recommended. Continue home lasix dosing at 60mg BID. Follow up with PCP in 1-[address] Sanchez, Pulmonary Medicine, scheduled in December. Home Meds and New Rx's Prescriptions: New prednisone 20 mg Tablet 40 mg PO DAILY Qty: 4 0RF Rx Instructions: First dose in the AM of 08/30/22. doxycycline hyclate 100 mg tablet 100 mg PO BID Qty: 8 0RF Continued Spiriva with HandiHaler 18 mcg capsule, w/inhalation device 18 mcg Inhalation DAILY Qty: 90 4RF albuterol sulfate 2.5 mg/0.5 mL solution for nebulization 5 mg inhalation Q4H Qty: 180 0RF OXYGEN ONE TOUCH BASIC SYSTEM 1 EACH kit 1 ea Miscellaneous TID Qty: 1 0RF Rx Instructions: Dx: 250.00 (DME) blood sugar diagnostic Strip 1 ea Miscellaneous QID Qty: 300 5RF Rx Instructions: One QID Dx: E11.9 (DME) lancets [OneTouch UltraSoft Lancets] Misc 1 ea Miscellaneous TID Qty: 204 4RF Rx Instructions: One QID Dx: E11.9 nitroglycerin [Nitrostat] 0.4 mg tablet, sublingual 0.4 mg Sublingual PRN Qty: 25 1RF (DME) pen needle, diabetic [1st Tier Unifine Pentips Plus] 31 gauge x 5/16 needle See Rx Instructions .ROUTE .MEDSUPPLY Qty: 100 4RF Rx Instructions: once daily Xarelto 20 mg tablet 20 mg PO DAILY Qty: 90 4RF amlodipine [Norvasc] 10 mg tablet 10 mg PO QAM Qty: 90 4RF Jardiance 25 mg tablet 25 mg PO DAILY Qty: 90 4RF furosemide [Lasix] 40 mg tablet 60 mg PO BID Qty: 270 4RF insulin glargine [Lantus Solostar U-100 Insulin] 100 unit/mL (3 mL) insulin pen 60 unit subcut DAILY Qty: 4 5RF lisinopril 40 mg tablet 40 mg PO DAILY Qty: 90 4RF metformin 1,000 mg tablet 1,000 mg PO BID Qty: 180 4RF metoprolol tartrate 100 mg tablet 100 mg PO BID Qty: 180 4RF rosuvastatin 10 mg tablet 10 mg PO DAILY Qty: 90 4RF (DME) OneTouch Ultra Test Strip See Rx Instructions .Route Qty: 300 4RF Rx Instructions: 3 x daily fluticasone propion-salmeterol [Advair Diskus] 250-50 mcg/dose blister with device 1 inh inhalation BID Qty: 60 12RF albuterol sulfate 2.5 mg /3 mL (0.083 %) solution for nebulization 2.5 mg Inhalation Q4H PRN PRN (Reason: shortness of breath or wheezing) Qty: 180 4RF Discharge Instructions Instructions: Low-Sodium Diet (DC) Activity:: Activity as Tolerated Equipment/Supplies:: No Equipment Needed Diet:: Resume home diet Discharge Orders Discharge Orders: Discharge Order (Routine); Ordered 08/29/22 Ordered By: Maycol Cook DS: Summary Time Spent with Patient providing and/or coordinating discharge services: Greater than 30 minutes Status at Discharge Functional status at discharge: independent ambulation Overall status at discharge: patient is progressing back to baseline Mental Status: mental status grossly normal Speech and Movement: speech and movement normal Mood: congruent mood Affect: normal affect Exam Narrative Exam Narrative: Pleasant obese male, sitting on edge of bed. Const General: cooperative and no acute distress Nutritional Appearance: obese Orientation: alert and oriented x3 Eyes General: appearance normal, both eyes and all related structures Sclera: sclerae normal Neck Neck: full ROM and other (large girth) Resp Effort & Inspection: normal respiratory effort and able to speak in complete sentences Auscultation: diminished lung sounds and wheezes Cardio Rate: regular rate Rhythm: abnormal rhythm irregularly irregular GI Inspection: non-distended and obesity Palpation: soft and nontender Skin General skin exam: no rashes or lesions noted Neuro General: patient alert, patient oriented x3 and no focal motor deficits Cranial Nerves: facial strength normal Speech: speech normal Gait: normal gait Extrem General: no pedal edema and no calf tenderness Psych Mental Status: mental status grossly normal Speech and Movement: speech and movement normal Mood: congruent mood Affect: normal affect DS: Data Vitals/I&O Vitals and I&O: Vital Signs Temperature 36.0 C L 08/29/22 07:32 Temperature Source Tympanic 08/29/22 07:32 Pulse 75 08/29/22 08:49 Pulse Rhythm Irregular 08/28/22 20:00 Pulse 86 08/28/22 17:20 Respiratory Rate 20 08/29/22 07:32 Respiratory Effort Short of Breath 08/28/22 20:00 Respiratory Depth Normal 08/28/22 20:00 Respiratory Pattern Tachypnea 08/28/22 20:00 Blood Pressure 144/83 H 08/29/22 07:32 Blood Pressure Mean 88 08/28/22 17:16 Blood Pressure Position Sitting 08/28/22 11:25 Pulse Oximetry 92 08/29/22 07:32 Oxygen Delivery Method Nasal Cannula 08/29/22 07:32 Oxygen Flow Rate 4.5 08/29/22 07:32 Fraction of Inspired Oxygen (FIO2) 32 08/29/22 09:21 Pain Level 0 08/29/22 07:34 Comment 08/29/22 07:34 Intake & Output 08/28/22 08/29/22 08/29/22 23:59 11:59 23:59 Intake Total 110 / 110 840 / 840 Output Total 400 / 400 2575 / 2575 Balance -290 / -290 -1735 / -1735 Weight 108.862 kg Intake: IV 110 / 110 100 / 100 Oral 740 / 740 Output: Urine 400 / 400 2575 / 2575 Other: Urine Color Yellow Yellow Urine Appearance Clear Clear Urine Odor None Voiding Methods Urinal Urinal Data Completed and Pending Labs on day of discharge: Labs from last 24 hours 08/29/22 08/29/22 08/28/22 06:54 06:54 Unknown WBC 7.74 RBC 5.52 Hgb 12.2 L Hct 42.1 MCV 76 L MCH 22.1 L MCHC 29.0 L RDW 17.2 H Plt Count 419 H MPV 10.4 Immature Gran % 0.3 Neutrophils % 91.1 Lymphocytes % 5.6 Monocytes % 2.6 Eosinophils % 0.0 Basophils % 0.4 Nucleated RBC % 0.0 Absolute Neutrophils 7.06 H Absolute Lymphocytes 0.43 L Absolute Monocytes 0.20 Absolute Eosinophils 0.00 Absolute Basophils 0.03 PT INR APTT Sodium 138 Potassium 4.2 Chloride 102 Carbon Dioxide 27.5 Anion Gap 8.5 BUN 12 Creatinine 0.9 Est GFR (CKD-EPI 2020) 93.61 Glucose 255 H Calcium 8.9 Magnesium 2.2 Total Bilirubin AST ALT Alkaline Phosphatase Troponin I Total Protein Albumin Procalcitonin TSH COVID-19 Source SARS-CoV-2 (PCR) Influenza Type A (PCR) Influenza Type B (PCR) RSV (PCR) Add-On Test Request DONE 08/28/22 08/28/22 08/28/22 15:55 15:21 12:13 WBC RBC Hgb Hct MCV MCH MCHC RDW Plt Count MPV Immature Gran % Neutrophils % Lymphocytes % Monocytes % Eosinophils % Basophils % Nucleated RBC % Absolute Neutrophils Absolute Lymphocytes Absolute Monocytes Absolute Eosinophils Absolute Basophils PT INR APTT Sodium Potassium Chloride Carbon Dioxide Anion Gap BUN Creatinine Est GFR (CKD-EPI 2020) Glucose Calcium Magnesium Total Bilirubin AST ALT Alkaline Phosphatase Troponin I < 50 Total Protein Albumin Procalcitonin < 0.1 TSH COVID-19 Source Nasopharynx SARS-CoV-2 (PCR) Negative Influenza Type A (PCR) Negative Influenza Type B (PCR) Negative RSV (PCR) Negative Add-On Test Request 08/28/22 08/28/22 08/28/22 12:13 12:13 12:13 WBC 12.53 H RBC 5.80 H Hgb 12.8 L Hct 45.0 MCV 78 L MCH 22.1 L MCHC 28.4 L RDW 17.6 H Plt Count 386 MPV 10.0 Immature Gran % 0.6 Neutrophils % 83.4 Lymphocytes % 6.9 Monocytes % 7.3 Eosinophils % 0.8 Basophils % 1.0 Nucleated RBC % 0.0 Absolute Neutrophils 10.45 H Absolute Lymphocytes 0.86 L Absolute Monocytes 0.91 H Absolute Eosinophils 0.10 Absolute Basophils 0.13 PT 11.9 H INR 1.2 H APTT 24.5 Sodium 141 Potassium 4.0 Chloride 103 Carbon Dioxide 27.6 Anion Gap 10.4 BUN 10 Creatinine 1.0 Est GFR (CKD-EPI 2020) 82.49 Glucose 191 H Calcium 9.0 Magnesium 1.9 Total Bilirubin 0.7 AST 23 ALT 19 Alkaline Phosphatase 97 Troponin I < 50 Total Protein 8.2 Albumin 4.2 Procalcitonin TSH 0.37 COVID-19 Source SARS-CoV-2 (PCR) Influenza Type A (PCR) Influenza Type B (PCR) RSV (PCR) Add-On Test Request [facility] All Active Problems Discharge planning issues (Acute) COPD (chronic obstructive pulmonary disease) (Chronic) Pain, foot (Acute) Nail dystrophy (Acute) JOSE treated with BiPAP (Acute) CHF (congestive heart failure) (Chronic) systolic - EF 35-40% in 2013 History of intravascular stent placement (Chronic) 2005- one stent, ? SD Polycythemia vera (Chronic) Obesity (Chronic) Hyperlipidemia (Chronic) Essential hypertension (Chronic 07/07/13) Controlled type 2 diabetes mellitus without complication, with long-term current use of insulin (Chronic 03/06/18) Chronic obstructive lung disease (Chronic) 2005-prolonged intubation; pneumothorax Chronic atrial fibrillation (Chronic 02/09/16) Xarelto Coronary atherosclerosis of [place] coronary vessel (Chronic) stent 2004 Pulmonary hypertension (Chronic) Blepharitis (Acute 11/03/12) Alcohol abuse (Chronic) 2 beers 3-4 x week Medical History Acute on chronic systolic CHF (congestive heart failure) Chronic respiratory failure with hypoxia Dysphagia 2018-- Barium swallow wnl Leukocytosis Right rotator cuff tear 2020- declines surgery Smoker Quit 2004 Substance abuse meth & cocaine- quit 2004 Viral hepatitis C Treated successfully 2018 Surgical History Stent placement (~2004) LCX Family History Mother Essential hypertension Grandmother Neoplasm Father Diabetes Heart disease Social History Smoking/Tobacco Use Status: Former Tobacco Use tobacco type: cigarettes Quit Date: 09/09/04 Tobacco: How many years used: 40 Second Hand Exposure: Yes Smoking risk assessment performed?: Yes Alcohol Intake: current Alcohol Intake frequency: a few times a week Alcohol type: beer Drug use: Never Substance use type: does not use Details: former Cocaine, methamphetamine user 20+ years ago Household members: none Housing: house Communication Needs: Corrective Lenses Do you need help understanding health information?: Often Pets and animals: Yes Pets and animals: cat(s) Sexually active: No Do you think of yourself as: straight/heterosexual Current gender identity: male What is your relationship status?: never How often do you talk on the phone with friends or family?: twice per week How often do you get together with friends or relatives?: never Do you belong to any clubs or organized social groups?: no Panel score (0-1 are the most socially isolated patients): 0 What type of physical activity do you participate in: none Reba/Christianity: No preference Seatbelt use: sometimes Drive intox or ride w/intox short haul driver: No Do you feel safe at home: Yes Do you feel safe in your relationship?: Yes
--- NOTE | 2022-08-29 12:47 | PDOC.CMDIS ---
- If Service Date Differs Date of service: 08/29/22 Time of Service: 12:47 LACE Index Scoring Tool - Questions: Length of Stay (in days): 1 Acuity (Admit via E.D.?): Yes Comorbidities: Diabetes w/o Complication, Congestive Heart Failure, Chronic Pulmonary Disease E.D. Visits: 2 - Answers: Total Score: 11 Risk of Readmission: High Risk Care Management Discharge Reason for Hospitalization: Afib with RVR Discharge Plan: Maximiliano is discharged home via private vehicle. Maximiliano will follow up with community providers and discharge plan of care as prescribed. New RX's are printed and Hosp. follow up is on 09/17/22, as scheduled. No new services are ordered. Patient/Family Education Needs: Review discharge instructions, limitations, medications and plan to follow up with community providers. Discuss ask me three and goals of self care.
== END 2022-08-29 13:51 | disposition home or self-care (01) | DRG 308 ==
LOC: ER 16:43 → MS 17:35
PROVIDERS: Admitting Provider Family Medicine; Emergency Provider Student in an Organized Health Care Education/Training Program; PCP Nurse Practitioner Family; Visit Provider Family Medicine
DX: I48.20 Chronic atrial fibrillation, unspecified (principal); I50.23 Acute on chronic systolic (congestive) heart failure; J96.11 Chronic respiratory failure with hypoxia; J44.0 Chronic obstructive pulmonary disease with (acute) lower respiratory infection; I11.0 Hypertensive heart disease with heart failure; E11.9 Type 2 diabetes mellitus without complications; F19.11 Other psychoactive substance abuse, in remission; E66.9 Obesity, unspecified; I27.20 Pulmonary hypertension, unspecified; F10.10 Alcohol abuse, uncomplicated; Z87.891 Personal history of nicotine dependence; Z86.19 Personal history of other infectious and parasitic diseases; E78.5 Hyperlipidemia, unspecified; R59.0 Localized enlarged lymph nodes; I25.10 Atherosclerotic heart disease of native coronary artery without angina pectoris; G47.33 Obstructive sleep apnea (adult) (pediatric); Z79.01 Long term (current) use of anticoagulants; Z95.5 Presence of coronary angioplasty implant and graft; Z79.4 Long term (current) use of insulin; D45 Polycythemia vera; R42 Dizziness and giddiness; Z99.81 Dependence on supplemental oxygen; J20.9 Acute bronchitis, unspecified
CPT/HCPCS: 36415; 71275; 80048; 80053; 84145; 87637; 93005; 94640; 96374; 99291; 83735; 84443; 84484; 85025; 85610; 85730; 93010; 94660; 99222; 99239; J7512

== ENCOUNTER 2022-09-14 02:21 | Outpatient (CLI) | payer MEDICARE, SELFPAY ==
[2022-09-14 12:54] LABS: HCT 45.9 % (40.0-50.0)
== END 2022-09-14 02:22 | disposition home or self-care (01) ==
LOC: LOS 02:22
PROVIDERS: PCP Nurse Practitioner Family; Visit Provider Nurse Practitioner Family
DX: D45 Polycythemia vera (principal)
CPT/HCPCS: 36415; 85014

== ENCOUNTER 2022-09-17 03:02 | Outpatient (RCR) | payer MEDICARE, SELFPAY | END 2022-10-09 23:59 | disposition home or self-care (01) | LOC: INF 03:02 | PROVIDERS: PCP Nurse Practitioner Family; Visit Provider Nurse Practitioner Family | DX: I48.20 Chronic atrial fibrillation, unspecified (principal); D45 Polycythemia vera | CPT/HCPCS: 99195 ==

== ENCOUNTER 2022-10-12 01:18 | Outpatient (CLI) | payer MEDICARE, SELFPAY ==
[2022-10-12 22:54] LABS: PSA, Screening 0.8 ng/mL (<=4.5)
== END 2022-10-12 01:19 | disposition home or self-care (01) ==
LOC: LOS 01:18
PROVIDERS: PCP Nurse Practitioner Family; Visit Provider Family Medicine
DX: Z12.5 Encounter for screening for malignant neoplasm of prostate (principal)
CPT/HCPCS: 36415; 84153

== ENCOUNTER 2022-10-15 02:20 | Outpatient (RCR) | payer MEDICARE, SELFPAY ==
[2022-10-15 07:55] LABS: HGB 12.9 g/dL (13.5-17.5)
== END 2022-11-06 23:59 | disposition home or self-care (01) ==
LOC: INF 02:20
PROVIDERS: PCP Nurse Practitioner Family; Visit Provider Nurse Practitioner Family
DX: D45 Polycythemia vera (principal)
CPT/HCPCS: 36415; 99195; 85014; 85018

== ENCOUNTER 2022-10-15 03:31 | Outpatient (CLI) | payer MEDICARE, SELFPAY ==
[2022-10-15] MEDS: Albuterol HFA 18 GM 200 PUFF INH IH (10:36)
[2022-10-15] MEDS: Inhaler, Assist Device 1 EACH MC (10:36)
--- NOTE | 2022-10-15 14:27 | W.PFT ---
Date of service: 10/15/22 Time of Service: 09:45 Pulmonary Function Test Result Requesting Provider Diane Indications: COPD Interpretation Spirometry: There is moderate airflow limitation. No significant bronchodilator response. The FVC is low due to severe obstruction. Lung Volumes: Normal lung volumes Diffusion Capacity: Severely decreased diffusion Airway Pressure: Normal airways resistance. Impression Moderate airflow obstruction with a severely diminished diffusion. Clinical Correlation therefore is recommended.
== END 2022-10-15 03:32 | disposition home or self-care (01) ==
LOC: RT 03:31
PROVIDERS: PCP Nurse Practitioner Family; Visit Provider Student in an Organized Health Care Education/Training Program
DX: R94.2 Abnormal results of pulmonary function studies (principal); J44.9 Chronic obstructive pulmonary disease, unspecified; R05.8 Other specified cough; R06.09 Other forms of dyspnea; Z87.891 Personal history of nicotine dependence
CPT/HCPCS: 36415; 94060; 94726; 94729; 99195; 85014; 85018

== ENCOUNTER 2022-10-22 00:34 | Outpatient (CLI) | payer MEDICARE, SELFPAY ==
--- NOTE | 2022-10-22 07:00 | DI.CTLCSR_ITS ---
Exam(s) CT CHEST LUNG CANCER SCREEN EXAM: CT CHEST LUNG CANCER SCREEN CLINICAL HISTORY: Screening for lung cancer,FORMER SMOKER, Z87.891 TECHNIQUE: Imaging Protocol: Axial computed tomography images with coronal and sagittal reformatted images were created and reviewed. Low dose screening protocol. COMPARISON: CT CHEST FOR PULMONARY EMBOLUS from 02/19/[address] CHEST PE CTA from 06/05/2021 CR XR CHEST 2V PA LATERAL from 08/03/[address] CHEST PE CTA from 08/28/2022 FINDINGS: Tracheobronchial tree: No bronchiectasis or mucus plugging.. Mediastinum and Amanda: Hilar and mediastinal adenopathy which appears stable. Adenopathy was present on prior exams back to 2009. Pulmonary parenchyma: No consolidation or dominant measurable mass. Mild to moderate emphysematous ch anges. Diffuse interstitial changes. There is some increased interstitial changes which are depende nt which could represent an element of CHF. Clinical correlation recommended. Lung Nodules: Calcified nodule medial right lung base. Pleura: No effusion. No pneumothorax. Heart: The heart is dilated. coronary artery calcifications are seen. Aorta: Thoracic aorta non-dilated. Upper abdomen: Unremarkable. Bones: Degenerative disc changes. Soft Tissues: Unremarkable. IMPRESSION: No suspicious pulmonary nodules. Stable hilar and mediastinal adenopathy. Interstitial changes question of mild superimposed pulmonar y edema. Lung RADS Cat 1 - Negative: No nodules and definitely benign nodules Lung-RADS 1.0 CATEGORIES: Category 0 - Prior chest CT exam(s) being located for comparison. Category 1 - Annual screening in 12 months. No nodules or definitely benign nodules. Category 2 - Annual screening in 12 months. Benign appearance. Nodules with low likelihood of becomin g active cancer. Category 3 - 6-month follow-up. Probably benign. Short-term follow-up suggested. Nodules with low lik elihood of becoming active cancer. Category 4A - 3-month follow-up and CT/PET if >8 mm in size. Suspicious finding. Findings which requi re additional testing. Category 4B - Findings which require additional testing and tissue sampling. Category 4X - Category 3 or 4 nodules with additional features or imaging findings that increases the suspicion of malignancy. Modifier S- Potentially clinically significant findings (non lung cancer) RADIATION DOSE DELIVERED: 89.61mGy.cm Total DLP DATA REPOSITORY: All CT scans at this facility are submitted to the National Radiology Data Registry (NRDR) Dose Index Registry (DIR) with the [employer] (ACR). RADIATION OPTIMIZATION: All CT scans at this facility use at least one of these dose optimization te chniques: automated exposure control; mA and/or kV adjustment per patient size (includes targeted exa ms where dose is matched to clinical indication); or iterative reconstruction.
== END 2022-10-22 00:54 ==
LOC: DI 00:34
PROVIDERS: PCP Nurse Practitioner Family; Visit Provider Student in an Organized Health Care Education/Training Program
DX: Z87.891 Personal history of nicotine dependence (principal); Z12.2 Encounter for screening for malignant neoplasm of respiratory organs
CPT/HCPCS: 71271

== ENCOUNTER 2022-11-09 01:20 | Outpatient (CLI) | payer MEDICARE, SELFPAY ==
[2022-11-09 12:21] LABS: HCT 44.5 % (40.0-50.0); HGB 11.8 g/dL (13.5-17.5)
== END 2022-11-09 01:21 | disposition home or self-care (01) ==
LOC: LOS 01:20
PROVIDERS: PCP Nurse Practitioner Family; Visit Provider Nurse Practitioner Family
DX: D45 Polycythemia vera (principal)
CPT/HCPCS: 36415; 85014; 85018

== ENCOUNTER 2022-11-15 01:38 | Outpatient (CLI) | payer MEDICARE, SELFPAY ==
--- NOTE | 2022-11-15 07:38 | DI.US_ITS ---
APPROVED REPORT EXAM: Comprehensive 2D, Doppler, and color-flow Echocardiogram Patient Location: Out-Patient [facility] Farmer: Jahaira Peters RDCS (AE) Indications: Worsening SOB, Atrial Fibrillation Echo Enhancing Agent Indication: Rule out Shunt Agent(s) / Amount(s) Used: Agitated Saline 30.0 cc Comments: Contrast study was performed with 3 IV injections of 10ccs of agitated normal saline, at re st, with cough and post valsalva maneuver. Other Information Study Quality: Fair. Technically limited study due to body habitus. Conclusion Left ventricle is mildly to moderately dilated Estimated ejection fraction is 35 to 40%. The apex is akinetic Right ventricle is mildly dilated with grossly normal systolic function Both atria are mildly to moderately dilated The aortic valve is sclerotic with mild stenosis. Peak gradient is 26, mean 16 mmHg. There is no ao rtic regurgitation Mildly thickened mitral leaflets. Mild to moderate mitral regurgitation Normal tricuspid valve with moderate regurgitation. Estimated right ventricular systolic pressure is 57 mmHg Wall motion Left Ventricle Left ventricle is mild to moderately dilated. Left ventricular systolic function is moderately decrea sed. There is normal left ventricular wall thickness. Regional wall motion abnormalities are noted. T here is no ventricular septal defect visualized. LVEF is 35-40%. Right Ventricle Right ventricle is mildly dilated. Right ventricular systolic function is grossly normal. Atria The left atrium is mildly to moderately dilated Right atrium is mild to moderately dilated. The inter atrial septum is intact with no evidence for an atrial septal defect. Saline bubble contrast intraven ous injection does not demonstrate PFO. Aortic Valve The Aortic valve is sclerotic. Number of aortic valve leaflets could not be assessed. Aortic valve is calcified. Mild aortic stenosis. Peak aortic valve gradient is 26.8_mmHg. Highest mean aortic valve gradient is 16.5.mmHg. Calculated MARY by the continuity equation is 1.8_cm2 No aortic regurgitation i s present. Mitral Valve Mitral valve leaflets are mildly thickened. No evidence of mitral valve stenosis. Mild to moderate mi tral regurgitation. Tricuspid Valve The tricuspid valve is normal in structure. There is no tricuspid valve stenosis. Moderate tricuspid regurgitation. Pulmonic Valve The pulmonary valve is normal in structure. There is no pulmonic valvular stenosis. There is no pulmo bernard valvular regurgitation. Great Vessels The aortic root is normal in size. Ascending aorta is not well visualized. The IVC collapses <50% wit h inspiration. Pericardium There is no pericardial effusion. 2D Dimensions IVSD d PLAX 0.98 cm M: 0.6-1.2 LV Vol A2C d MOD 173.3 mL LVPW d PLAX 0.95 cm M: 0.6 - 1.2 LV Vol A4C d MOD 152.0 mL LVID d PLAX 6.35 cm M: 4.2 - 5.8 LA vol/ BSA A4C s A-L 30.2 mL/m2 LVDs 5.35 cm M: 2.5 - 4.0 LA Area A4C s MOD 23.34 cm2 Ao Root d 3.00 cm M: 3.1 - 3.7 LV EF A4C MOD 35.6 % RA Area A4C 28.76 cm2 LV EF A2C MOD 35.2 % RA Vol/ BSA A4C s A-L 50.0 mL/m2 LV EF Biplane MOD 37.5 % LV EF Teichholz 32.3 % SV 62.93 mL LVEF (Wright's) 37.49 % M: 52 - 72 SV Index 28.60 mL/m2 LV Volume 122.07 mL M: 62 - 150 LV Volume Index 55.48 mL/m2 M: 34 - 74 LV Vol Biplane MOD 167.8 mL FS 15.60 % M-Mode TAPSE 1.60 cm (M/F) >1.7 LV Diastology MV E' medial 0.114 (>0.07 m/s) MV E Vmax 1.30 (0.4-1.3 m/s) LV E/e MED 11.35 (<14) MV E' lateral 0.132 (>0.1 m/s) LV E/e LAT 9.80 (<14) MV E/E' medial 11.40 MV E/E' lateral 9.81 Aortic Valve LVOT Area 3.77 cm2 AoV Area Vmax 1.83 cm2 LVOT Vmax 1.26 m/s AoV Area/ BSA (Vmax) 0.83 cm2/m2 LVOT Mean Rei. 1.02 m/s MARY Mean Rei. 1.98 cm2 LVOT Peak Grad 6.3 mmHg MARY Mean Rei. Index 0.90 cm2/m2 LVOT Mean Grad 4.4 mmHg LVOT VTI 0.296 m LVOT Diam s 2.15 cm AoV Vmax 2.59 m/s Velocity Ratio 0.49 AoV Mean Rei. 1.94 m/s AoV Peak Grad 26.8 mmHg LVOT SV 111.43 mL AoV Mean Grad 16.5 mmHg AoV VTI 0.544 m AoV Area VTI 2.05 cm2 AoV Area/ BSA (VTI) 0.93 cm/m2 Mitral Valve MV DT 206 (160-240 msec) MV PHT 60 msec MV Area PHT 3.68 cm2 MV VTI 0.371 m MV Area VTI 3.01 (4.0-6.0 cm2) Pulmonary Valve PV Vmax 1.37 (0.5-1.5 m/s) RVOT Peak Gr. 1.84 mmHg PV Peak Grad 7.6 mmHg RVOT Mean Gr. 0.80 mmHg PV Mean Grad 3.3 mmHg RVOT VTI 0.140 m PV VTI 0.233 m RVOT Vmax 0.68 m/s Tricuspid Valve TR Peak Grad 47.7 mmHg TR Vmax 3.45 m/s RA Pressure 8.00 mmHg RVSP (TR) 55.7 mmHg
== END 2022-11-15 01:58 ==
LOC: DI 01:38
PROVIDERS: PCP Nurse Practitioner Family; Visit Provider Student in an Organized Health Care Education/Training Program
DX: R06.02 Shortness of breath (principal)
CPT/HCPCS: 93306